=== PATIENT | male | born 1930 | race Caucasian/White ===

== ENCOUNTER → 2016-08-23 | Outpatient (CLI) | payer OTHER | LOC: BHFA 14:45 | PROVIDERS: ATTEND Internal Medicine | DX: R06.00 Dyspnea, unspecified (principal) ==

== ENCOUNTER 2016-10-02 15:23 | Inpatient (IN) | payer OTHER ==
--- NOTE | 2016-10-02 15:49 | EDPHY ---
H & P Stated Complaint: fall off bed, c/o bilat rib pain. hit head, no loc. no neck pain Time Seen by Provider: 10/02/16 15:24 HPI/ROS: CHIEF COMPLAINT: Chest wall pain and abdominal pain following mechanical fall HISTORY OF PRESENT ILLNESS: The patient presents to the emergency department with complaints of bilateral anterior chest wall pain and mild anterior abdominal pain following a mechanical fall. The patient reportedly tripped while in his room. He did not strike his head or lose consciousness. He has no complaints of headache or neck pain. The patient does have a history of COPD and has chronic dyspnea from this condition. He is on chronic oxygen. The patient also complains of generalized anterior abdominal pain. He denies back, pelvic or lower extremity pain. The patient reports his symptoms are worsened with with inspiration and palpation. REVIEW OF SYSTEMS: A comprehensive 10 point review of systems is otherwise negative aside from elements mentioned in the history of present illness. Source: Patient, Family Exam Limitations: No limitations - Personal History Current Tetanus/Diphtheria Vaccine: Yes Current Tetanus Diphtheria and Acellular Pertussis (TDAP): Yes Tetanus Vaccine Date: unsure - Medical/Surgical History Hx Asthma: No Hx Chronic Respiratory Disease: Yes Hx Diabetes: Yes Hx Cardiac Disease: Yes Hx Renal Disease: No Hx Cirrhosis: No Hx Alcoholism: No Hx HIV/AIDS: No Hx Splenectomy or Spleen Trauma: No Other PMH: htn, 6 stents, pacemaker (atrial) 2003, pm, chf, hf, 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 type 2 diabetic,[place] - Social History Smoking Status: Former smoker - Physical Exam Exam: General Appearance: Elderly male, obese, mild discomfort from pain Head: Atraumatic Eyes: Pupils equal, round, reactive ENT, Mouth: No hemotympanum, no oral trauma, nasal cannula oxygen prongs in place Neck: Nontender, trachea midline Respiratory: Diffuse anterior chest wall tenderness, no subcutaneous emphysema , no crepitus Cardiovascular: Regular rate and rhythm Abdomen: Diffuse mild anterior abdominal tenderness, pelvis stable Skin: No lacerations, No abrasion Back: No midline T/L/S pain Extremities: Nontender, full range of motion Neurological: A&Ox3, normal motor function, normal sensory exam Constitutional: Initial Vital Signs Temperature (C) 36.7 C 10/02/16 15:32 Heart Rate 70 10/02/16 15:32 Respiratory Rate 18 03/18/17 15:32 Blood Pressure 159/77 H 10/02/16 15:32 O2 Sat (%) 100 10/02/16 15:32 O2 Delivery Mode Nasal Cannula O2 (L/minute) 4 Allergies/Adverse Reactions: No Known Allergies Allergy (Verified 06/04/16 15:01) Home Medications: Medication Instructions Recorded Amlodipine Besylate 5 mg PO DAILY 05/06/13 ESOMEPRAZOLE MAG TRIHYDRATE 40 mg PO DAILY 05/06/13 [NEXIUM] Insulin Aspart [Novolog] 15 unit SQ 0730 05/06/13 Insulin Glargine,Hum.rec.anlog 25 unit SQ DAILY 05/06/13 [Lantus] Tamsulosin HCl [Flomax 0.4 MG (*)] 0.4 mg PO HS 05/06/13 Clopidogrel Bisulfate [Plavix (*)] 75 mg PO DAILY 12/29/13 Donepezil HCl [Aricept] 10 mg PO HS 12/29/13 Herbals/Supplements -Info Only 1 ea PO DAILY 12/29/13 Insulin Glargine [Lantus 100 6 - 15 units SC HS 12/29/13 UNITS/ML (*)] Metoprolol Succinate 50 mg PO DAILY 12/29/13 Nitroglycerin [Nitroglycerin Patch] 1 each TD PRN PRN 12/29/13 Aspirin [Aspirin 325 mg (*)] 325 mg PO DAILY 11/19/15 Losartan Potassium [Cozaar 50 mg 75 mg PO DAILY 11/19/15 (*)] Meclizine HCl [Meclizine HCl 25 mg 25 mg PO Q4 PRN #30 tab 11/19/15 (RX,OTC)] Mirabegron [Myrbetriq] 25 mg PO DAILY 11/19/15 Mirabegron [Myrbetriq] 50 mg PO HS 11/19/15 Medical Decision Making - Diagnostics EKG Interpretation: EKG: Complete interpretation has been separately recorded in the [facility] archive. Summary impression: A-V paced rhythm. Imaging: Chest x-ray AP: Images reviewed by myself and discussed with radiologist Dr. Jesse Mireles, pacemaker present, no pneumothorax, no obvious rib fracture or hemothorax. CT chest without contrast: Nondisplaced rib fracture, no sternal fracture, new spiculated lung lesion. CT A/P without contrast: Negative for acute injury, stable lesions in liver, stable changes in spine. ED Course/Re-evaluation: The patient presents to the ED with complaints of anterior chest pain after mechanical fall. The patient was noted to be hemodynamically stable. He also complained of mild abdominal pain and tenderness. The patient's initial chest x- ray demonstrated no evidence of obvious injury. He was taken for noncontrast CT scan of the chest abdomen pelvis given his ongoing pain and tenderness. We attempted to ambulate the patient several times however he is having quite a bit of discomfort in his chest with any movement. He is a fall risk and cannot safely be discharged home. He will require admission to the hospital. The patient has suggestions of possible nondisplaced rib fractures on his chest CT scan. There is no evidence of a sternal fracture. CT scan of the abdomen pelvis demonstrates no evidence of an intra-abdominal injury. There is stable disease noted in the liver and spine. CT scan of the chest does demonstrate a new spiculated nodule of uncertain significance. Workup with this will be deferred to the hospitalist and his regular oncologist. Consultation is made with Dr. Marin Espino who will admit the patient. The patient will be seen in consultation by Dr. Daya Rollins given his rib injuries. Differential Diagnosis: Differential diagnosis considered includes rib fracture, pneumothorax, hemothorax, sternal fracture, intra-abdominal injury, retroperitoneal injury - Data Points Laboratory Results: Laboratory Results 10/02/16 16:00 10/02/16 16:00 10/02/16 10/02/16 10/02/16 16:00 16:00 15:59 WBC 10.77 10^3/uL H 10^3/uL (3.80-9.50) RBC 3.82 10^6/uL L 10^6/uL (4.40-6.38) Hgb 12.3 g/dL L g/dL (13.7-17.5) POC Hgb 12.6 gm/dL L gm/dL (14.5-17.3) Hct 34.3 % L % (40.0-51.0) POC Hct 37 % L % (42.8-50.6) MCV 89.8 fL fL (81.5-99.8) MCH 32.2 pg pg (27.9-34.1) MCHC 35.9 g/dL g/dL (32.4-36.7) RDW 12.8 % % (11.5-15.2) Plt Count 239 10^3/uL 10^3/uL (150-400) MPV 9.5 fL fL (8.7-11.7) Neut % (Auto) 77.3 % H % (39.3-74.2) Lymph % (Auto) 10.5 % L % (15.0-45.0) [place] % (Auto) 8.3 % % (4.5-13.0) Eos % (Auto) 2.0 % % (0.6-7.6) Baso % (Auto) 0.6 % % (0.3-1.7) Nucleat RBC Rel Count 0.0 % % (0.0-0.2) Absolute Neuts (auto) 8.33 10^3/uL H 10^3/uL (1.70-6.50) Absolute Lymphs (auto) 1.13 10^3/uL 10^3/uL (1.00-3.00) Absolute Monos (auto) 0.89 10^3/uL H 10^3/uL (0.30-0.80) Absolute Eos (auto) 0.22 10^3/uL 10^3/uL (0.03-0.40) Absolute Basos (auto) 0.06 10^3/uL 10^3/uL (0.02-0.10) Absolute Nucleated RBC 0.00 10^3/uL 10^3/uL (0-0.01) Immature Gran % 1.3 % H % (0.0-1.1) Immature Gran # 0.14 10^3/uL H 10^3/uL (0.00-0.10) POC Sodium 140 mEq/L mEq/L (134-144) Sodium 135 mEq/L mEq/L (134-144) POC Potassium 4.7 mEq/L mEq/L (3.3-5.0) Potassium 4.9 mEq/L mEq/L (3.5-5.2) POC Chloride 103 mEq/L mEq/L (96-108) Chloride 104 mEq/L mEq/L (97-110) Carbon Dioxide 21 mEq/l L mEq/l (22-31) Anion Gap 10 mEq/L mEq/L (8-16) POC BUN 30 mg/dL H mg/dL (7-23) BUN 31 mg/dL H mg/dL (7-23) Creatinine 1.6 mg/dL H mg/dL (0.7-1.3) POC Creatinine 1.7 mg/dL H mg/dL (0.8-1.5) Estimated GFR 41 Glucose 190 mg/dL H mg/dL (70-100) POC Glucose 191 mg/dL H mg/dL (70-100) Calcium 9.4 mg/dL mg/dL (8.5-10.4) Point of Care Test Results: 10/02/16 15:59 POC Sodium 140 POC Potassium 4.7 POC Chloride 103 POC BUN 30 H POC Creatinine 1.7 H POC Glucose 191 H Departure - Departure Disposition: [facility] Inpatient Acute Clinical Impression: Chest wall pain, Abdominal pain Condition: Fair
--- NOTE | 2016-10-02 15:55 | CPEKG ---
Heart Rate: 71 RR Interval: 845 P-R Interval: 163 QRSD Interval: 190 QT Interval: 500 QTC Interval: 544 P [place]: -22 QRS [place]: -65 T Wave [place]: 116 EKG Severity - ABNORMAL ECG - EKG Impression: ATRIAL-VENTRICULAR DUAL-PACED RHYTHM Electronically Signed By: Ace Benson 03-Oct-2016 16:30:44
[2016-10-02 16:12] LABS: % IMMATURE GRANULYOCYTES 1.3 % (0.0-1.1); ABSOLUTE IMMATURE GRANULOCYTES 0.14 10^3/uL (0.00-0.10); ADD DIFF? NO; ADD MORPH? NO; ADD SCAN? NO; ATYPICAL LYMPHOCYTE FLAG 0 (0-99); FRAGMENT RBC FLAG 0 (0-99); HEMATOCRIT 34.3 % (40.0-51.0); HEMOGLOBIN 12.3 g/dL (13.7-17.5); LEFT SHIFT FLG 10 (0-99); LIPEMIA HEMOLYSIS FLAG 90 (0-99); MEAN CELL HEMOGLOBIN 32.2 pg (27.9-34.1); MEAN CELL HEMOGLOBIN CONCENTR. 35.9 g/dL (32.4-36.7); MEAN CELL VOLUME 89.8 fL (81.5-99.8); MEAN PLATELET VOLUME 9.5 fL (8.7-11.7); PLATELET CLUMPS FLAG 0 (0-99); PLATELET COUNT 239 10^3/uL (150-400); RED BLOOD CELL COUNT 3.82 10^6/uL (4.40-6.38); RED CELL DISTRIBUTION WIDTH 12.8 % (11.5-15.2)
[2016-10-02 16:24] LABS: ANION GAP 10 mEq/L (8-16); CALCIUM 9.4 mg/dL (8.5-10.4); CARBON DIOXIDE 21 mEq/l (22-31); CHLORIDE 104 mEq/L (97-110); CREATININE 1.6 mg/dL (0.7-1.3); GLOMERULAR FILTRATION RATE 41; GLUCOSE 190 mg/dL (70-100); POTASSIUM 4.9 mEq/L (3.5-5.2); SODIUM 135 mEq/L (134-144)
[2016-10-02] MEDS ORDERED: ONDANSETRON DISINTEGRATING 4 MG TAB PO PRN (19:29)
[2016-10-02] MEDS ORDERED: NITROGLYCERIN 0.4 MG BTL SL PRN (19:31)
[2016-10-02] MEDS ORDERED: D50W 25 GM/50 ML SYR IVP PRN (19:47)
--- NOTE | 2016-10-02 20:10 | GCON ---
[f rep st] CONSULTATION DATE OF CONSULTATION: 10/02/2016 REQUESTING PHYSICIAN: Jeremy Benson MD CHIEF COMPLAINT: Fall off bed with chest pain. HISTORY OF PRESENT ILLNESS: The patient is an 86-year-old man who presented to the emergency department due to anterior wall pain due to falling off his bed. He tripped in his room. He denies losing consciousness. Prior to me meeting him, he had a CT scan performed of his chest and abdomen. It did show questionable rib fractures as well as a spiculated mass in the right lower lobe. He is also complaining of slight neck pain. He is on oxygen chronically. PAST MEDICAL HISTORY: CHF, lymphoma, type 2 diabetes, COPD, pacemaker, 6 stents were placed, hearing impairment. SOCIAL HISTORY: He is a former smoker. FAMILY HISTORY: His parents are . REVIEW OF SYSTEMS: He is complaining of anterior wall chest pain. He says it radiates to his heart and he is complaining of neck soreness. Otherwise, he is hard hearing and a 10-point review of systems is negative. MEDICATIONS: In process of reconcilliation PHYSICAL EXAM: GENERAL: Elderly man lying in bed. His son is at bedside. He is in mild discomfort. He is pleasant, cooperative. HEENT: Normocephalic. Pupils equal and round. No scleral icterus. He does have gross hearing deficits. LUNGS: Clear to auscultation bilaterally. He is tender to palpation over the anterior chest wall. CARDIAC: Regular rate. ABDOMEN: His bowel sounds are present. He is soft. He is nontender. NECK: He is not tender along the cervical spine, but he is tender with range of motion. SKIN: No obvious abrasions or lacerations. RESULTS REVIEWED: I reviewed the results of his CT of his chest, abdomen, and pelvis. There is questionable rib fractures bilaterally and he has a spiculated mass in the anterior right lower lobe. IMPRESSION AND PLAN: The patient is an 86-year-old status post fall. 1. In terms of the spiculated mass in his lung, if his family would want to pursue wedge biopsy, I am happy to do this. I am unclear at this point if he would tolerate single lung ventilation. He would certainly need PFTs prior to surgery. 2. In terms of his rib fractures, supportive care, incentive spirometry. 3. I have also asked them to order a CT scan of his neck, as he was complaining of neck pain when I was in the ER. Please call me with any questions or concerns /[id number]/MODL MTDD
--- NOTE | 2016-10-02 20:20 | GHP ---
[f rep st] HISTORY AND PHYSICAL DATE OF ADMISSION: 10/02/2016 CHIEF COMPLAINT: Fall. HISTORY OF PRESENT ILLNESS: This is an 86-year-old male with multiple medical problems who presents after a fall. He was trying to kill a spider that was on the ceiling when he lost his balance and fell, landing on his right side. He did not lose consciousness. He did mildly hit his head. He im mediately had pain over both ribs. He thus presents to the emergency department for further evaluat ion. PAST MEDICAL/PAST SURGICAL HISTORY: 1. Diabetes mellitus. 2. Sick sinus syndrome. 3. Coronary artery disease. 4. MALT. 5. BPH. 6. Hyperlipidemia. 7. Hypertension. 8. GERD. 9. Obstructive sleep apnea. MEDICATIONS: Please see medication reconciliation. ALLERGIES: No known drug allergies. FAMILY HISTORY: His father had a stroke. SOCIAL HISTORY: He does not drink or smoke. REVIEW OF SYSTEMS: 10-point review of systems is conducted and is negative except for HPI. PHYSICAL EXAM: VITAL SIGNS: Blood pressure 166/87, heart rate 70, respiration rate 16, saturating 100% on 4 L. Temperature is 36.7. GENERAL: The patient is a very pleasant man who is lying in bed , appears somewhat uncomfortable. HEENT: A mild lump on the back of his head. He is wearing a C-co llar. CARDIOVASCULAR: Regular rate and rhythm. CHEST: Exquisitely tender to palpation bilateral on the lateral aspect of approximately his 8th or 9th rib. PULMONARY: Clear to auscultation bilaterally. He has breath sounds in all 4 quadrants. ABDOMEN: Soft, nontender, nondistended. SKIN: No rash. : No [place]. NEUROLOGIC: Alert and oriented x3. He is moving all extremities. P SYCHIATRIC: Normal mood and affect. LABORATORY DATA: White count is 10. Hemoglobin is 12. Creatinine is 1.6. Glucose is 190. DATA: 1. I discussed this with Dr. Benson. 2. I reviewed his chest CT scan. It shows bilateral rib fractures as well as a spiculated mass. 3. ECG, which I personally viewed and interpreted, shows a paced rhythm. 4. Chest x-ray, which I personally reviewed and interpreted, shows cardiomegaly. He has a pacemaker in place. There is nothing acute. IMPRESSION AND PLAN: This is an 86-year-old man with a fall with subsequent rib fractures. 1. Rib fractures: Dr. Rollins has been consulted. Appreciate her assistance. She has recommended a neck brace with a CT scan. This is pending. If negative, will likely be able to clear his neck an d remove the C-collar. Will provide him an incentive spirometer for his rib fractures. Will provid e him a Lidoderm patch as well as scheduled Tylenol and some low-dose narcotics. Would avoid NSAIDs at this point given his renal issues. 2. Fall: Will have him work with Physical Therapy. 3. Spiculated mass in his lungs: He is followed by Dr. Sow. He can continue outpatient followup for this. 4. Diabetes mellitus: Will continue his home insulin and check his blood sugars. 5. Elevated creatinine: Recent creatinines had been in this range. I am unclear if this represent s an acute or chronic kidney disease. Will recheck it tomorrow. Caution with nephrotoxins. 6. Coronary artery disease: Will continue his cardiac medications including aspirin, Plavix, metop rolol, statin. 7. Benign prostatic hypertrophy: Flomax. 8. Sick sinus syndrome, status post pacemaker: Currently AV paced. Continue metoprolol. 9. Code status is full. 10. Venous thromboembolism risk is moderate to high. Will give him Lovenox. /[id number]/MODL
[2016-10-02] MEDS ORDERED: NON-FORMULARY NEW DRUG (Mirabegron [Myrbetriq] 50 MG) PO SCH (21:00)
[2016-10-02] MEDS: METOPROLOL SUCCINATE XR 50 MG TAB PO SCH (21:47)
[2016-10-02] MEDS: TAMSULOSIN HCL 0.4 MG CAP PO SCH (21:48)
[2016-10-02] MEDS: DONEPEZIL HCL 5 MG TAB PO SCH (21:48)
[2016-10-02] MEDS: oxyCODONE IR 5 MG TAB PO PRN (21:49)
[2016-10-02] MEDS: INSULIN GLARGINE 100 UNITS/ML SYRINGE SC SCH (21:49)
[2016-10-02] MEDS: LIDOCAINE 5% 1 EA PATCH TD SCH (21:55)
[2016-10-02] MEDS: (Mirabegron [Myrbetriq] 50 MG) PO SCH (22:30)
[2016-10-03 05:13] LABS: % IMMATURE GRANULYOCYTES 0.3 % (0.0-1.1); ABSOLUTE IMMATURE GRANULOCYTES 0.03 10^3/uL (0.00-0.10); ADD DIFF? NO; ADD MORPH? NO; ADD SCAN? NO; ATYPICAL LYMPHOCYTE FLAG 0 (0-99); FRAGMENT RBC FLAG 0 (0-99); HEMATOCRIT 32.9 % (40.0-51.0); HEMOGLOBIN 11.6 g/dL (13.7-17.5); LEFT SHIFT FLG 0 (0-99); LIPEMIA HEMOLYSIS FLAG 90 (0-99); MEAN CELL HEMOGLOBIN 31.7 pg (27.9-34.1); MEAN CELL HEMOGLOBIN CONCENTR. 35.3 g/dL (32.4-36.7); MEAN CELL VOLUME 89.9 fL (81.5-99.8); MEAN PLATELET VOLUME 9.4 fL (8.7-11.7); PLATELET CLUMPS FLAG 0 (0-99); PLATELET COUNT 205 10^3/uL (150-400); RED BLOOD CELL COUNT 3.66 10^6/uL (4.40-6.38); RED CELL DISTRIBUTION WIDTH 12.7 % (11.5-15.2)
[2016-10-03 05:29] LABS: ANION GAP 10 mEq/L (8-16); CALCIUM 9.2 mg/dL (8.5-10.4); CARBON DIOXIDE 24 mEq/l (22-31); CHLORIDE 108 mEq/L (97-110); CREATININE 1.4 mg/dL (0.7-1.3); GLOMERULAR FILTRATION RATE 48; GLUCOSE 111 mg/dL (70-100); POTASSIUM 4.3 mEq/L (3.5-5.2); SODIUM 142 mEq/L (134-144)
[2016-10-03] MEDS: oxyCODONE IR 5 MG TAB PO PRN (05:57)
[2016-10-03] MEDS ORDERED: INSULIN LISPRO 100 UNIT/ML SC SCH ×2 (07:30→18:00)
[2016-10-03] MEDS ORDERED: INSULIN ASPART 15 UNIT SQ SCH (07:30)
[2016-10-03] MEDS ORDERED: NON-FORMULARY NEW DRUG (Vit A/Vit C/Vit E/Zinc/Copper [Preservision Areds Tablet] 1 EACH) PO SCH (09:00)
[2016-10-03] MEDS: PRESERVISION AREDS2 FORMULA EYE VIT 1 EACH PO SCH (09:05)
[2016-10-03] MEDS: ESCITALOPRAM OXALATE 10 MG TAB PO SCH (09:05)
[2016-10-03] MEDS: LORazepam 0.5 MG TAB PO SCH (09:06)
[2016-10-03] MEDS: CLOPIDOGREL BISULFATE 75 MG TAB PO SCH (09:06)
[2016-10-03] MEDS: ASPIRIN 325 MG TAB PO SCH (09:06)
[2016-10-03] MEDS: CHOLECALCIFEROL VIT D3 2,000 UNITS TAB/CAP PO SCH (09:06)
[2016-10-03] MEDS: PANTOPRAZOLE SODIUM 40 MG TAB PO SCH (09:07)
[2016-10-03] MEDS: METOPROLOL SUCCINATE XR 50 MG TAB PO SCH ×3 (09:18→21:50)
[2016-10-03] MEDS: LOSARTAN POTASSIUM 50 MG TAB PO SCH (09:19)
[2016-10-03] MEDS: INSULIN GLARGINE 100 UNITS/ML SYRINGE SC SCH ×2 (09:19→21:43)
[2016-10-03] MEDS: amLODIPine BESYLATE 5 MG TAB PO SCH (09:19)
[2016-10-03] MEDS: PATCH REMOVAL 1 EA PATCH TD SCH (09:21)
[2016-10-03] MEDS: ACETAMINOPHEN 500 MG TAB PO PRN ×2 (09:25→21:52)
[2016-10-03] MEDS: ROSUVASTATIN CALCIUM 10 MG TAB PO SCH (09:52)
[2016-10-03] MEDS: ENOXAPARIN 30 MG/0.3 ML SYR SC SCH (09:52)
--- NOTE | 2016-10-03 10:25 | HOSPPROG ---
Hospitalist Progress Note Assessment/Plan: Patient is an 86-year-old male with multiple medical problems who presents did to the emergency room after falling. He was trying to kill spider that was on the ceiling and lost his balance and fell. He landed on his right side. He had pain over both his ribs. Today is my 1st encounter with the patient. Chart reviewed. * Rib fractures - able to ambulate well in the room - will give supportive care - cervical CT spine shows nothing acute * gait instability with a fall - physical therapy and occupational therapy to work with him * spiculated mass in his lungs - will need a biopsy / can follow up with Dr. Rollins after he improves from his rib fractures -patient and son aware of this finding * diabetes - glucoses have been labile/ glucose very low this morning -on lantus bid/will change to lower dose qHS and stop his sliding scale and place on hospital one -once his glucoses improve/ can resume his home dosing * hypotension - place parameters as to when to hold his medications he is on multiple blood pressure medications * renal insufficiency - creatinine is 1.4 * coronary artery disease - on aspirin, beta-noe, statin, and Plavix * BPH - Flomax * sick sinus syndrome status post pacemaker * DVT prophylaxis:LMWH *Plan: will need another midnight stay to regulate glucoses and bp Subjective: Ras has pain with deep inspiration on both sides where his ribs are. Objective: Vital Signs Temp Pulse Resp BP Pulse Ox 36.5 C 80 16 112/66 95 10/03/16 07:53 10/03/16 07:53 10/03/16 07:53 10/03/16 07:53 10/03/16 07:53 Laboratory Results 10/03/16 04:49 10/03/16 04:49 10/02/16 10/03/16 10/04/16 05:59 05:59 05:59 Intake Total 200 Balance 200 - Physical Exam Constitutional: appears nourished, chronically ill appearing, obese Eyes: PERRL Ears, Nose, Mouth, Throat: hard of hearing (per son has more difficutly with interpreting words than [place]/patient has a microphone for hearing) Cardiovascular: regular rate and rhythym, bradycardia Respiratory: no respiratory distress, reduced air movement (bibasilar) Gastrointestinal: normoactive bowel sounds Skin: warm Musculoskeletal: no muscle tenderness Neurologic: AAOx3 Psychiatric: interacting appropriately, not anxious, not encephalopathic ICD10 Worksheet Patient Problems: Problems Problem Status Onset Abdominal pain Acute Chest wall pain Acute CAD - Coronary arteriosclerosis Acute Syncope and collapse Acute Vertigo Acute
[2016-10-03] MEDS: INSULIN LISPRO 100 UNIT/ML SC SCH ×2 (12:36→18:15)
[2016-10-03] MEDS ORDERED: NON-FORMULARY NEW DRUG (Insulin Aspart [Novolog Flexpen] 0 UNIT) SQ SCH (18:00)
[2016-10-03] MEDS: LIDOCAINE 5% 1 EA PATCH TD SCH (21:43)
[2016-10-03] MEDS: DONEPEZIL HCL 5 MG TAB PO SCH (21:49)
[2016-10-03] MEDS: TAMSULOSIN HCL 0.4 MG CAP PO SCH (21:50)
[2016-10-03] MEDS: (Mirabegron [Myrbetriq] 50 MG) PO SCH (21:58)
[2016-10-04] MEDS: METOPROLOL SUCCINATE XR 50 MG TAB PO SCH ×2 (04:27→22:02)
[2016-10-04] MEDS: LOSARTAN POTASSIUM 50 MG TAB PO SCH (08:35)
[2016-10-04] MEDS: CLOPIDOGREL BISULFATE 75 MG TAB PO SCH (08:35)
[2016-10-04] MEDS: ESCITALOPRAM OXALATE 10 MG TAB PO SCH (08:35)
[2016-10-04] MEDS: CHOLECALCIFEROL VIT D3 2,000 UNITS TAB/CAP PO SCH (08:36)
[2016-10-04] MEDS: PANTOPRAZOLE SODIUM 40 MG TAB PO SCH (08:36)
[2016-10-04] MEDS: ROSUVASTATIN CALCIUM 10 MG TAB PO SCH (08:36)
[2016-10-04] MEDS: LORazepam 0.5 MG TAB PO SCH (08:36)
[2016-10-04] MEDS: ACETAMINOPHEN 500 MG TAB PO PRN ×2 (08:37→22:09)
[2016-10-04] MEDS: ASPIRIN 325 MG TAB PO SCH (08:37)
[2016-10-04] MEDS: ENOXAPARIN 30 MG/0.3 ML SYR SC SCH (08:37)
[2016-10-04] MEDS: amLODIPine BESYLATE 5 MG TAB PO SCH (08:37)
[2016-10-04] MEDS: oxyCODONE IR 5 MG TAB PO PRN ×2 (08:46→22:09)
[2016-10-04] MEDS: PRESERVISION AREDS2 FORMULA EYE VIT 1 EACH PO SCH (09:00)
[2016-10-04] MEDS: INSULIN LISPRO 100 UNIT/ML SC SCH ×3 (10:04→18:12)
[2016-10-04] MEDS ORDERED: LACTULOSE 20 GM/30 ML UDCUP PO PRN (10:59)
[2016-10-04] MEDS ORDERED: BISACODYL 10 MG SUPP PR PRN (10:59)
[2016-10-04] MEDS: POLYETHYLENE GLYCOL 3350 17 GM PKT PO SCH (12:17)
[2016-10-04] MEDS: PATCH REMOVAL 1 EA PATCH TD SCH (12:17)
--- NOTE | 2016-10-04 15:26 | HOSPPROG ---
Hospitalist Progress Note Assessment/Plan: Patient is an 86-year-old male with multiple medical problems who presents did to the emergency room after falling. He was trying to kill spider that was on the ceiling and lost his balance and fell. He landed on his right side. He had pain over both his ribs. Patient's [place] language is [place]ic, but understands [place]ican/ is very [place] and does best if spoken to through his microphone. * Rib fractures - able to ambulate well in the room - will give supportive care - cervical CT spine shows nothing acute * gait instability with a fall - physical therapy and occupational therapy to work with him * Mild stable T8,T9, T11 and T12 compression fx -unclear if these are new -patient has rib pain, back pain with walking, not sure if this is chronic -appreciate neurosurgery input * spiculated mass in his lungs - will need a biopsy / can follow up with Dr. Rollins after he improves from his rib fractures -patient and son aware of this finding * diabetes - glucoses have been labile/ glucose very low this morning -on lantus bid/will change to lower dose qHS and stop his sliding scale and place on hospital one -once his glucoses improve/ can resume his home dosing * hypotension - he is having a significant drop in his blood pressure/ will stop Losartan and Norvasc, continue Metoprolol. - if his blood pressure improves, can resume Losartan and Norvasc, but maybe lower doses - suspect this was one of the etiologies of why he fell * renal insufficiency - creatinine is 1.4 * coronary artery disease - on aspirin, beta-noe, statin, and Plavix * BPH - Flomax * sick sinus syndrome status post pacemaker * DVT prophylaxis:LMWH *Plan: continue current treatment/ appreciate Neurosurgery's input in regards to the T compression fx/ ?old vs new? Subjective: Ras said both sides hurt. Objective: Vital Signs Temp Pulse Resp BP Pulse Ox 36.9 C 67 15 93/52 L 94 10/04/16 11:55 10/04/16 11:55 10/04/16 11:55 10/04/16 12:04 10/04/16 11:55 Laboratory Results 10/03/16 04:49 10/03/16 04:49 10/03/16 10/04/16 10/05/16 05:59 05:59 05:59 Intake Total 200 1400 Balance 200 1400 - Physical Exam Constitutional: chronically ill appearing, obese, uncomfortable Eyes: PERRL Ears, Nose, Mouth, Throat: hard of hearing Cardiovascular: regular rate and rhythym Respiratory: no respiratory distress, reduced air movement (mid lobes down/poor respiratory effort) Gastrointestinal: normoactive bowel sounds, other (large and round) Skin: warm, normal color Musculoskeletal: generalized weakness Neurologic: AAOx3 Psychiatric: interacting appropriately, not anxious ICD10 Worksheet Patient Problems: Problems Problem Status Onset Abdominal pain Acute Chest wall pain Acute CAD - Coronary arteriosclerosis Acute Syncope and collapse Acute Vertigo Acute
--- NOTE | 2016-10-04 19:47 | NEUSURGPN ---
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 Multiple age- indeterminant compression fractures at T8.T9, T11, and T12 also seen on CT. -Patient is complaining of back pain but has no focal tenderness on physical exam in his Thoracic or lumbar spine -Consult somewhat difficult due to hearing loss and language barrier. -Unable to get MRI due to pacemaker -Will obtain bone scan of T and L spine to assess acuity of fx and will most likely not need any intervention with a brace -Will follow bone scan results and most likely sign off if not acute -Per case technician looking into plans for patient upon discharge -Encourage work with PT/OT -Patient seen with Dr. Shoemaker -Call with any changes in exam or any questions regarding this consult Katelin Shane PA-C [facility] [phone] - Physician Discussed Patient with Dr.: Shoemaker Patient Seen by Dr.: Shoemaker Neurosurgery Physical Exam - Vitals, I&O, Labs I and O 10/03/16 10/04/16 10/05/16 05:59 05:59 05:59 Intake Total 200 1400 Balance 200 1400 Weight 92.986 kg Intake: Oral (ml) 200 1400 Other: Intake Quantity Yes Sufficient Number of Voids 1 Toilet 1 3 Vital Signs Temp Pulse Resp BP Pulse Ox 36.3 C 80 19 108/64 90 L 10/04/16 19:26 10/04/16 19:26 10/04/16 19:26 10/04/16 19:26 10/04/16 19:26 Laboratory Results 10/03/16 04:49 10/03/16 04:49 ICD10 Worksheet Patient Problems: Problems Problem Status Onset Abdominal pain Acute Chest wall pain Acute CAD - Coronary arteriosclerosis Acute Syncope and collapse Acute Vertigo Acute
--- NOTE | 2016-10-04 21:02 | GCON ---
[f rep st] CONSULTATION NEUROSURGERY CONSULTATION CHIEF COMPLAINT: Fall, back pain. HISTORY OF PRESENT ILLNESS: This is an 86-year-old male with multiple medical problems who presented after a fall 2 days ago. Per a review of his medical records, he was trying to kill a spider that was on the ceiling, when he lost his balance and fell, landing on his right side. He did not lose consciousness. He did mildly his head. The patient did have pain in his ribs. He was presented to the Emergency Department for further evaluation of this. Neurosurgery Services were consulted today after scans revealed multiple compression fractures in his thoracic spine at T8, T9, T11 and T12. The patient currently does not complain of a lot of back pain, but does so intermittently. He states that he has back pain, but when pressing on his back today, he does not have much tenderness to palpation. The patient denies any numbness, tingling, or pain in his legs. Patient denies any loss of bowel or bladder control. Communication with the patient is as somewhat limited due to his hardness of hearing, as well somewhat of a language barrier. Per the case maker who was talking to his son earlier, the son did state that the patient was more complaining of a new onset of a tremor and was not complaining of a lot of back pain. Per the case maker, they are also working on placement options for this patient. PAST MEDICAL HISTORY: Consists of diabetes, sick sinus syndrome, coronary artery disease, BPH, hyperlipidemia, hypertension, GERD, obstructive sleep apnea. MEDICATIONS: Please see the medication reconciliation. ALLERGIES: The patient has no known drug allergies. FAMILY HISTORY: Per review of his medical records, his past family history is significant for a stroke in his father. SOCIAL HISTORY: Patient denies any tobacco use or any alcohol use. REVIEW OF SYSTEMS: All pertinent positive and negative review of systems are as stated in the HPI. OBJECTIVE: VITAL SIGNS: Blood pressure 108/64, heart rate 80, respiratory rate 19, O2 saturation is 90% on room air, temperature 36.3 degrees Celsius. CONSTITUTIONAL: The patient is an overweight, elderly man in no acute distress. He is sitting up initiate the chair. HEENT: Head is normocephalic, atraumatic. Eyes: Pupils are equal and reactive to light and accommodation. Extraocular muscles are intact. Ears: Patient does have difficulty hearing. RESPIRATORY: The patient has a normal work of breathing. : The patient is negative for guarding. NEURO: Cranial nerves II through XII are grossly intact. Motor: Bilateral lower extremities are 5/5 and equal in strength, including quadriceps, hamstrings, dorsiflexion, plantarflexion, and EHL. Sensation is intact bilaterally over the normal distribution of the body. MUSCULOSKELETAL: Patient is nontender to palpation over the midthoracic and lumbar spine. He is also nontender the palpation over the paraspinal muscles near the thoracic and lumbar spine. Bilateral upper extremities are 5/5 and equal in strength, including biceps, triceps, deltoids, wrist extensors and flexors, interossei and community liaison officer. EXTREMITIES: There is no cyanosis noted. LABORATORY DATA: White blood cell count 8.67, red blood cell count 3.66, hemoglobin 11.6, hematocrit 32.9, platelets 205. Glucose 216. DIAGNOSTIC IMAGING: A cervical spine CT was performed without contrast that shows no acute cervical osseous abnormality. A chest CT was performed without contrast which on the sagittal reconstructed views demonstrates mild stable compression deformities associated with the superior endplates of T8, T9, T11 and T12. Bone spurs are seen throughout the mid to upper lumbar spine. There is no new lytic/blastic lesion. As such, degenerative changes are noted in the mid to lower lumbar spine. The abdominal aorta is normal in size with some atherosclerotic features. There is no new retroperitoneal and mesenteric adenopathy. ASSESSMENT: This is an 86-year-old male with multiple medical problems, who had a fall, resulting in subsequent rib fractures. On his imaging, there were multiple compression fractures seen in his thoracic spine which were age indeterminate at T8,T9, T11 and T12. We were consulted in order to assess the acuity of these fractures. At this time, the patient does state that he has some back pain even though on my exam today he is nontender over the thoracic and lumbar spine. He is neurologically intact without any signs of weakness. He has no loss of bowel or bladder control. In order to assess the acuity of these fractures, we would need to get an MRI; however, the patient does have a history of a pacemaker and is unable to get this. We will therefore obtain a bone scan of the thoracic and lumbar spine in order to make sure that these fractures are not acute. If the fractures are not acute, which is most likely the case, no intervention is needed. If the fractures are acute, we would move to put this patient in a brace. He should continue to work with Physical Therapy, Occupational Therapy. The Medicine Service will continue to attend his other multiple medical problems. We appreciate this consult and we will continue to follow the results of his bone scan. Please contact Neurosurgery with any questions or concerns. Again this patient was seen by the Neurosurgical team at approximately 3:30 p.m. /[id number]/MODL MTDD
[2016-10-04] MEDS: DONEPEZIL HCL 5 MG TAB PO SCH (21:58)
[2016-10-04] MEDS: INSULIN GLARGINE 100 UNITS/ML SYRINGE SC SCH (21:59)
[2016-10-04] MEDS: LIDOCAINE 5% 1 EA PATCH TD SCH (21:59)
[2016-10-04] MEDS: SENNOSIDES/DOCUSATE SODIUM TAB PO SCH (22:03)
[2016-10-04] MEDS: (Mirabegron [Myrbetriq] 50 MG) PO SCH (22:03)
[2016-10-04] MEDS: TAMSULOSIN HCL 0.4 MG CAP PO SCH (22:04)
[2016-10-05] MEDS: oxyCODONE IR 5 MG TAB PO PRN (03:33)
--- NOTE | 2016-10-05 07:42 | NEUSURGPN ---
Assessment/Plan: 86 yo male with multiple compression fractures on CT, no focal tenderness. - neuro stable - Bone scan pending to determine chronicity of fractures. If acute, will fit patient with brace to be worn when out of bed. If chronic, no treatment required - PT/OT - pain control Subjective: Resting in bed this morning. Pain controlled. Objective: Awake. Alert. Speech fluent Muscle strength full at 5/5 Sensation intact - Physician Discussed Patient with : [facility] Physical Exam - Vitals, I&O, Labs I and O 10/04/16 10/05/16 10/06/16 05:59 05:59 05:59 Intake Total 1400 300 Balance 1400 300 Intake: Oral (ml) 1400 300 Other: Intake Quantity Yes Sufficient Number of Voids Toilet 3 Vital Signs Temp Pulse Resp BP Pulse Ox 36.6 C 73 18 119/68 95 10/05/16 04:00 10/05/16 04:00 10/05/16 04:00 10/05/16 04:00 10/05/16 04:00 Laboratory Results 10/03/16 04:49 10/03/16 04:49 ICD10 Worksheet Patient Problems: Problems Problem Status Onset Abdominal pain Acute Chest wall pain Acute CAD - Coronary arteriosclerosis Acute Syncope and collapse Acute Vertigo Acute
[2016-10-05] MEDS: INSULIN LISPRO 100 UNIT/ML SC SCH ×3 (09:30→18:08)
[2016-10-05] MEDS: CHOLECALCIFEROL VIT D3 2,000 UNITS TAB/CAP PO SCH (09:47)
[2016-10-05] MEDS: PRESERVISION AREDS2 FORMULA EYE VIT 1 EACH PO SCH (09:48)
[2016-10-05] MEDS: ESCITALOPRAM OXALATE 10 MG TAB PO SCH (09:48)
[2016-10-05] MEDS: CLOPIDOGREL BISULFATE 75 MG TAB PO SCH (09:48)
[2016-10-05] MEDS: ROSUVASTATIN CALCIUM 10 MG TAB PO SCH (09:49)
[2016-10-05] MEDS: SENNOSIDES/DOCUSATE SODIUM TAB PO SCH ×2 (09:49→20:56)
[2016-10-05] MEDS: ASPIRIN 325 MG TAB PO SCH (09:49)
[2016-10-05] MEDS: PANTOPRAZOLE SODIUM 40 MG TAB PO SCH (09:49)
[2016-10-05] MEDS: METOPROLOL SUCCINATE XR 50 MG TAB PO SCH ×2 (09:49→20:54)
[2016-10-05] MEDS: LORazepam 0.5 MG TAB PO SCH (09:50)
[2016-10-05] MEDS: POLYETHYLENE GLYCOL 3350 17 GM PKT PO SCH (09:50)
[2016-10-05] MEDS: ENOXAPARIN 30 MG/0.3 ML SYR SC SCH (09:50)
[2016-10-05] MEDS: PATCH REMOVAL 1 EA PATCH TD SCH (13:21)
--- NOTE | 2016-10-05 15:19 | HOSPPROG ---
Hospitalist Progress Note Assessment/Plan: Patient is an 86-year-old male with multiple medical problems who presents to the emergency room after falling. He was trying to kill spider that was on the ceiling and lost his balance and fell. He landed on his right side. He had pain over both his ribs. Patient's pilot point language is Senegalese, but understands Bengali/ is very [place] and does best if spoken to through his microphone. This is my first encounter, chart reviewed. D/W CM and son. * Rib fractures - able to ambulate well in the room - will give supportive care - cervical CT spine shows nothing acute * gait instability with a fall - physical therapy and occupational therapy to work with him * Mild stable T8,T9, T11 and T12 compression fx -unclear if these are new -patient has rib pain, back pain with walking, not sure if this is chronic -appreciate neurosurgery input -bone scan pending * spiculated mass in his lungs - will need a biopsy / can follow up with Dr. Rollins after he improves from his rib fractures -patient and son aware of this finding * diabetes - glucoses have been labile/ glucose very low this morning -on lantus bid/will change to lower dose qHS and stop his sliding scale and place on hospital one -once his glucoses improve/ can resume his home dosing * hypotension - he is having a significant drop in his blood pressure/ will stop Losartan and Norvasc, continue Metoprolol. - if his blood pressure improves, can resume Losartan and Norvasc, but maybe lower doses - suspect this was one of the etiologies of why he fell * renal insufficiency - creatinine is 1.4 * coronary artery disease - on aspirin, beta-noe, statin, and Plavix * BPH - Flomax * sick sinus syndrome status post pacemaker * DVT prophylaxis:LMWH *Plan: continue current treatment/ appreciate Neurosurgery's input in regards to the T compression fx/ ?old vs new? Dc 1-2 days to [facility] or rehab Subjective: Up in the chair. Feels ok. Pain controlled. Wants to go home. Objective: Vital Signs Temp Pulse Resp BP Pulse Ox 36.9 C 66 15 111/60 95 10/05/16 12:22 10/05/16 12:22 10/05/16 12:22 10/05/16 12:22 10/05/16 12:22 Laboratory Results 10/03/16 04:49 10/03/16 04:49 10/04/16 10/05/16 10/06/16 05:59 05:59 05:59 Intake Total 1400 300 Balance 1400 300 - Physical Exam Constitutional: no apparent distress, not in pain, obese Eyes: PERRL, anicteric sclera, EOMI Ears, Nose, Mouth, Throat: moist mucous membranes, ears appear normal, hard of hearing Cardiovascular: No JVD, No tachycardia, No edema Respiratory: no respiratory distress, no rales or rhonchi, reduced air movement Gastrointestinal: No tenderness, No ascites, No guarding Skin: warm, normal color, No erythema Musculoskeletal: pain with ROM, muscular tenderness, generalized weakness Neurologic: AAOx3 Psychiatric: not anxious, not encephalopathic, thought process linear ICD10 Worksheet Patient Problems: Problems Problem Status Onset Syncope and collapse Acute CAD - Coronary arteriosclerosis Acute Vertigo Acute Chest wall pain Acute Abdominal pain Acute
[2016-10-05] MEDS: INSULIN GLARGINE 100 UNITS/ML SYRINGE SC SCH (20:51)
[2016-10-05] MEDS: DONEPEZIL HCL 5 MG TAB PO SCH (20:51)
[2016-10-05] MEDS: LIDOCAINE 5% 1 EA PATCH TD SCH (20:51)
[2016-10-05] MEDS: (Mirabegron [Myrbetriq] 50 MG) PO SCH (20:55)
[2016-10-05] MEDS: TAMSULOSIN HCL 0.4 MG CAP PO SCH (20:56)
[2016-10-06 07:33] VITALS: RESP 16
[2016-10-06] MEDS: PANTOPRAZOLE SODIUM 40 MG TAB PO SCH (08:15)
[2016-10-06] MEDS: CLOPIDOGREL BISULFATE 75 MG TAB PO SCH (08:15)
[2016-10-06] MEDS: ASPIRIN 325 MG TAB PO SCH (08:16)
[2016-10-06] MEDS: SENNOSIDES/DOCUSATE SODIUM TAB PO SCH (08:16)
[2016-10-06] MEDS: ESCITALOPRAM OXALATE 10 MG TAB PO SCH (08:16)
[2016-10-06] MEDS: METOPROLOL SUCCINATE XR 50 MG TAB PO SCH (08:17)
[2016-10-06] MEDS: LORazepam 0.5 MG TAB PO SCH (08:17)
[2016-10-06] MEDS: CHOLECALCIFEROL VIT D3 2,000 UNITS TAB/CAP PO SCH (08:17)
[2016-10-06] MEDS: PRESERVISION AREDS2 FORMULA EYE VIT 1 EACH PO SCH (08:17)
[2016-10-06] MEDS: ROSUVASTATIN CALCIUM 10 MG TAB PO SCH (08:18)
[2016-10-06] MEDS: ENOXAPARIN 30 MG/0.3 ML SYR SC SCH (08:19)
[2016-10-06] MEDS: POLYETHYLENE GLYCOL 3350 17 GM PKT PO SCH (08:19)
[2016-10-06] MEDS: INSULIN LISPRO 100 UNIT/ML SC SCH ×2 (08:19→13:38)
[2016-10-06] MEDS: PATCH REMOVAL 1 EA PATCH TD SCH (08:20)
[2016-10-06] MEDS: oxyCODONE IR 5 MG TAB PO PRN ×2 (08:22→13:43)
[2016-10-06] MEDS: ACETAMINOPHEN 500 MG TAB PO PRN (08:24)
[2016-10-06 11:05] VITALS: BP 116/66; PULSE 73; TEMP 98.5; O2SAT 95
--- NOTE | 2016-10-06 11:42 | PDIAF ---
- Diagnosis Diagnosis: rib fx Code Status: Full Code - Medication Management Discharge Medications: Medications to Continue on Transfer Insulin Aspart [Novolog] 15 unit SQ 0730 05/06/13 [Last Taken 11/18/15] Tamsulosin HCl [Flomax 0.4 MG (*)] 0.4 mg PO HS 05/06/13 [Last Taken 11/18/15] Clopidogrel Bisulfate [Plavix (*)] 75 mg PO DAILY 12/29/13 [Last Taken 11/18/15] Donepezil HCl [Aricept] 10 mg PO HS 12/29/13 [Last Taken 11/18/15] Herbals/Supplements -Info Only 1 ea PO DAILY 12/29/13 [Last Taken Unknown] Metoprolol Succinate 50 mg PO BID 12/29/13 [Last Taken 11/18/15] Aspirin [Aspirin 325 mg (*)] 325 mg PO DAILY 11/19/15 [Last Taken 11/18/15] Mirabegron [Myrbetriq] 50 mg PO HS 11/19/15 [Last Taken 11/18/15] Cholecalciferol (Vitamin D3) [Vitamin D3] 5,000 unit PO DAILY 10/02/16 [Last Taken Unknown] Escitalopram Oxalate [Lexapro 10 MG] 10 mg PO DAILY 10/02/16 [Last Taken Unknown ] Esomeprazole Magnesium [Nexium] 20 mg PO DAILY 10/02/16 [Last Taken Unknown] Insulin Aspart [Novolog Flexpen] 10 - 15 unit SQ DAILY@1800 10/02/16 [Last Taken Unknown] Insulin Glargine,Hum.rec.anlog [Basaglar Kwikpen U-100] 40 unit SQ BID 10/02/16 [Last Taken Unknown] LORazepam [Ativan (*)] 0.5 mg PO DAILY 10/02/16 [Last Taken Unknown] Multivitamins [Multivitamin (*)] 1 each PO DAILY 10/02/16 [Last Taken Unknown] Nitroglycerin [Nitrostat 0.4 mg (*)] 0.4 mg SL Q5M PRN 10/02/16 [Last Taken Unknown] Rosuvastatin Calcium [Crestor] 10 mg PO DAILY 10/02/16 [Last Taken Unknown] Vit A/Vit C/Vit E/Zinc/Copper [Preservision Areds Tablet] 1 each PO DAILY [Last Taken Unknown] Acetaminophen [Tylenol ES 500 mg (*)] 1,000 mg PO TID PRN #0 tab 10/06/16 [Last Taken Unknown] Lidocaine 5% [Lidoderm 5% Patch (*)] 1 ea TD DAILY@2100 #0 patch 10/06/16 [Last Taken Unknown] Patch Removal 1 ea TD DAILY #0 patch 10/06/16 [Last Taken Unknown] Polyethylene Glycol 3350 [Miralax 17 gm (*)] 17 gm PO DAILY #0 pkt 10/06/16 [ Last Taken Unknown] Sennosides/Docusate Sodium [Senokot-S] 1 - 2 tab PO BID #0 tab 10/06/16 [Last Taken Unknown] oxyCODONE IR [Oxycodone Ir (*)] 5 - 10 mg PO Q3HRS PRN #0 tab 10/06/16 [Last Taken Unknown] Discharge Medications: Refer to the Discharge Home Medication list for PRN reason. PICC Care - Routine: N/A - Orders Services needed: Registered Nurse, Physical Therapy, Occupational Therapy - Follow Up Care Current Providers and Referrals: Tru Bo MD [Primary Care Provider] - As per Instructions
--- NOTE | 2016-10-06 12:51 | GDS ---
[f rep st] DISCHARGE SUMMARY DISCHARGE DIAGNOSES: 1. Mechanical fall. 2. Rib fractures. 3. Gait instability. 4. Multiple thoracic compression fractures. 5. Spiculated mass. 6. Diabetes. 7. Hypotension. 8. Renal insufficiency. 9. Coronary artery disease. 10. BPH. 11. Sick sinus syndrome, status post pacemaker. STUDIES AND PROCEDURES DONE: 1. CT of the abdomen and pelvis. 2. CT of the chest. 3. Cervical spine CT. 4. Bone scan. CONSULTATIONS: Neurosurgery. PHYSICAL EXAMINATION: GENERAL: The patient is alert. VITAL SIGNS: Afebrile, 36.9. Pulse is 73, respiratory rate 16, blood pressure is 116/66, saturating 95% on 2 L. I have seen and evaluated the patient on the day of discharge. HOSPITAL COURSE: The patient is an 86-year-old male who presented to the emergency room after suffe ring a mechanical fall off a chair. He was evaluated and diagnosed with: 1. Multiple rib fractures. The patient is ambulating independently. His pain is well controlled. He did receive a consultation from trauma at the time of admission. There are no other recommendat ions. 2. Gait instability. He will require physical therapy and occupational therapy at the time of disp osition. 3. Multiple thoracic spine compression fractures. A bone scan was done during this hospitalization and neurosurgery consult was obtained. The fractures do not appear to be acute in nature. He can follow up in the outpatient setting if desired. 4. Spiculated lung mass. The patient has been informed about this. He can follow up with Dr. Jonathon mcarthur in the outpatient setting when his rib fractures have healed for outpatient biopsy. The patient a nd his son are both aware of this. 5. Diabetes. I have continued insulin during this hospitalization. At the time of disposition, I have reinitiated his home insulin regimen. His blood sugar was well controlled during this hospital course. 6. Hypotension. The patient normally suffers from hypertension. During this hospitalization, all of his blood pressure medications were held and he has tolerated this well. He will remain off his losartan and Norvasc, as well as Lopressor until he is further evaluated in the outpatient setting. 7. Renal insufficiency. This is chronic in nature and appears to be at baseline with a creatinine last checked of 1.4. 8. History of coronary artery disease. The patient has continued aspirin as well as beta noe, statin, and Plavix. 9. Sick sinus syndrome, status post pacemaker. No complications noted. DISPOSITION: The patient will be discharged to [facility] for further rehabilitation and management . He does require physical therapy and occupational therapy. I have discussed the patient's care w ith the social work case manager. DISCHARGE MEDICATIONS: Please refer to EMR form. I have discontinued the patient's previously pres cribed Norvasc, Cozaar, Lasix, spironolactone. No new medications have been administered other than Lidoderm patch to the best of my knowledge. I spent greater than 35 minutes in the care, coordinat ion, and management of this patient's disposition. /[id number]/MODL
== END 2016-10-06 15:23 | DRG 184 ==
LOC: EDUNIT# → F3N 20:28
PROVIDERS: ADMIT Student in an Organized Health Care Education/Training Program; ATTEND Student in an Organized Health Care Education/Training Program
DX: S22.43XA Multiple fractures of ribs, bilateral, initial encounter for closed fracture (principal); M48.54XA Collapsed vertebra, not elsewhere classified, thoracic region, initial encounter for fracture; E11.9 Type 2 diabetes mellitus without complications; I95.9 Hypotension, unspecified; I25.10 Atherosclerotic heart disease of native coronary artery without angina pectoris; N40.0 Benign prostatic hyperplasia without lower urinary tract symptoms; Z95.0 Presence of cardiac pacemaker; R26.89 Other abnormalities of gait and mobility; R91.8 Other nonspecific abnormal finding of lung field; N28.9 Disorder of kidney and ureter, unspecified; W07.XXXA Fall from chair, initial encounter; I10 Essential (primary) hypertension; J44.9 Chronic obstructive pulmonary disease, unspecified; Z95.5 Presence of coronary angioplasty implant and graft; Z99.81 Dependence on supplemental oxygen; Z87.891 Personal history of nicotine dependence
CPT/HCPCS: 82947-QW; 92523-GN; 97116-GP; 97161-GP; 97165-GO; 97530-GO; 97535-GO; A9503; G8978-GP-CJ; G8979-GP-CI; G8987-GO-CK; G8988-GO-CI; G9165-GN-CH; G9166-GN-CH; G9167-GN-CH; J1650; J1815; L0172

== ENCOUNTER → 2016-11-26 | Outpatient (CLI) | payer OTHER | LOC: FIMAGING 09:51 | PROVIDERS: ATTEND Internal Medicine | DX: M50.322 Other cervical disc degeneration at C5-C6 level (principal); M43.12 Spondylolisthesis, cervical region ==

== ENCOUNTER → 2017-02-07 | Outpatient (CLI) | payer OTHER | LOC: FIMAGING 13:51 | PROVIDERS: ATTEND Internal Medicine Critical Care Medicine | DX: R91.1 Solitary pulmonary nodule (principal) ==

== ENCOUNTER 2017-02-22 14:30 | Emergency (ER) | payer OTHER ==
[2017-02-22 16:28] VITALS: O2SAT 99
--- NOTE | 2017-02-22 17:28 | EDPHY ---
H & P Stated Complaint: right posterior calf pain post fall on plavix, - loc Time Seen by Provider: 02/22/17 16:23 HPI/ROS: Chief complaint: Right leg injury History of present illness: This is an 86-year-old male accompanied by his children to the emergency department for a right leg injury. Yesterday patient was walking in his own house and he went and twisted to turn around falling onto his right leg. He called his son to help him get up, he was only on the ground for a few minutes. Since then he has had a soreness in his leg. Most pronounced behind the leg around the knee region. It makes it difficult to ambulate although he is still ambulating on his own. There is no report of open wounds. No report of abnormal coolness or paresthesias in the leg. No other trauma is reported. - Personal History Current Tetanus/Diphtheria Vaccine: Yes Current Tetanus Diphtheria and Acellular Pertussis (TDAP): Yes Tetanus Vaccine Date: unsure - Medical/Surgical History Hx Asthma: No Hx Chronic Respiratory Disease: Yes Hx Diabetes: Yes Hx Cardiac Disease: Yes Hx Renal Disease: No Hx Cirrhosis: No Hx Alcoholism: No Hx HIV/AIDS: No Hx Splenectomy or Spleen Trauma: No Other PMH: htn, 6 stents, pacemaker (atrial) 2003, pm, chf, hf, 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 type 2 diabetic,osage - Social History Smoking Status: Former smoker - Physical Exam Exam: General: Alert, nontoxic Skin: No lesions consistent with trauma to the right lower extremity Musculoskeletal: There is no tenderness on palpation of the right lower extremity. He is moving it well. He is ambulating on his own. Vascular: DP and PT pulses 2+. Neurologic: Sensation intact in the right leg. Constitutional: Initial Vital Signs Heart Rate 72 02/22/17 14:35 Respiratory Rate 16 02/22/17 14:35 Blood Pressure 131/65 H 02/22/17 14:35 O2 Sat (%) 98 02/22/17 14:35 O2 Delivery Mode Room Air O2 (L/minute) 4 Allergies/Adverse Reactions: No Known Allergies Allergy (Verified 06/04/16 15:01) Home Medications: Medication Instructions Recorded Insulin Aspart [Novolog] 15 unit SQ 0730 05/06/13 Tamsulosin HCl [Flomax 0.4 MG (*)] 0.4 mg PO HS 05/06/13 Clopidogrel Bisulfate [Plavix (*)] 75 mg PO DAILY 12/29/13 Donepezil HCl [Aricept] 10 mg PO HS 12/29/13 Herbals/Supplements -Info Only 1 ea PO DAILY 12/29/13 Metoprolol Succinate 50 mg PO BID 12/29/13 Aspirin [Aspirin 325 mg (*)] 325 mg PO DAILY 11/19/15 Mirabegron [Myrbetriq] 50 mg PO HS 11/19/15 Cholecalciferol (Vitamin D3) 5,000 unit PO DAILY 10/02/16 [Vitamin D3] Escitalopram Oxalate [Lexapro 10 10 mg PO DAILY 10/02/16 MG] Esomeprazole Magnesium [Nexium] 20 mg PO DAILY 10/02/16 Insulin Aspart [Novolog Flexpen] 10 - 15 unit SQ DAILY@1800 10/02/16 Insulin Glargine,Hum.rec.anlog 40 unit SQ BID 10/02/16 [Basaglar Kwikpen U-100] LORazepam [Ativan (*)] 0.5 mg PO DAILY 10/02/16 Multivitamins [Multivitamin (*)] 1 each PO DAILY 10/02/16 Nitroglycerin [Nitrostat 0.4 mg 0.4 mg SL Q5M PRN 10/02/16 (*)] Rosuvastatin Calcium [Crestor] 10 mg PO DAILY 10/02/16 Vit A/Vit C/Vit E/Zinc/Copper 1 each PO DAILY 10/02/16 [Preservision Areds Tablet] Acetaminophen [Tylenol ES 500 mg 1,000 mg PO TID PRN #0 tab 10/06/16 (*)] Lidocaine 5% [Lidoderm 5% Patch 1 ea TD DAILY@2100 #0 patch 10/06/16 (*)] Patch Removal 1 ea TD DAILY #0 patch 10/06/16 Polyethylene Glycol 3350 [Miralax 17 gm PO DAILY #0 pkt 10/06/16 17 gm (*)] Sennosides/Docusate Sodium 1 - 2 tab PO BID #0 tab 10/06/16 [Senokot-S] oxyCODONE IR [Oxycodone Ir (*)] 5 - 10 mg PO Q3HRS PRN #0 tab 10/06/16 Medical Decision Making - Diagnostics Imaging Results: Imaging Impressions Knee X-Ray 02/22/17 16:27 Impression: 1. Advanced patellofemoral osteoarthritis. 2. Small knee joint effusion. Extremity Venous Study 02/22/17 16:28 Impression: No evidence of deep vein thrombosis. Findings discussed with JADE Camarillo 02/22/2017 at 17:15. Imaging: Discussed imaging studies w/ call center manager Radiologist, I viewed and interpreted images myself ED Course/Re-evaluation: Patient is seen under the supervision of my secondary supervising physician Dr. Fidencio Del Rio. Patient presents with family who are interpreting for him for a right lower extremity injury. He twisted his leg yesterday while turning around in his house and fell onto it. He has been able to ambulate on his own since then. The leg appears neurovascularly intact. X-ray of the knee does show a small joint effusion. Ultrasound is negative DVT which was pursued given the location of discomfort. By history and physical exam I do not appreciate evidence of trauma to other parts of the body. I believe patient will be appropriate for discharge home. I have asked him to use an Baldomero wrap. Patient is to follow up with Orthopedics for recheck and referral information is provided. Return precautions are given. Differential Diagnosis: Included but not limited to contusion, hematoma, sprain or strain, bony fracture, blood clot Departure - Departure Disposition: Home, Routine, Self-Care Clinical Impression: Knee injury Qualifiers: Encounter type: initial encounter Laterality: right Qualified Code(s): S89.91XA - Unspecified injury of right lower leg, initial encounter Condition: Good Instructions: Knee Sprain (ED) Referrals: Tru Bo MD [Primary Care Provider] - As per Instructions Martinez Milan MD [Medical Doctor] - As per Instructions
[2017-02-22 17:55] VITALS: BP 145/74; PULSE 73; RESP 18; TEMP 98.6
== END 2017-02-22 18:03 | disposition home or self-care (01) ==
DX: S89.91XA Unspecified injury of right lower leg, initial encounter (principal); E11.9 Type 2 diabetes mellitus without complications; I50.9 Heart failure, unspecified; Z95.0 Presence of cardiac pacemaker; Z87.891 Personal history of nicotine dependence; Z79.4 Long term (current) use of insulin; Z79.82 Long term (current) use of aspirin; W18.39XA Other fall on same level, initial encounter; Y93.01 Activity, walking, marching and hiking

== ENCOUNTER 2017-05-11 11:15 | Observation (INO) | payer OTHER ==
[2017-05-11] MEDS ORDERED: NS 1,000 ML IV ONE (11:22)
[2017-05-11] MEDS ORDERED: ceFAZolin 2 GM/SWFI 2 GM/20 ML SYR IVP ONE (11:22)
[2017-05-11] MEDS ORDERED: BACITRACIN IRRIGATION/NS 50,000 UNITS/1,000 ML BTL IRR ONE (11:22)
[2017-05-11] MEDS ORDERED: ceFAZolin 2 GM in D5W 100 ML IV ONE (11:30)
--- NOTE | 2017-05-11 11:44 | CPEKG ---
Heart Rate: 79 RR Interval: 759 P-R Interval: 142 QRSD Interval: 192 QT Interval: 492 QTC Interval: 565 P Wells: 15 QRS Wells: -76 T Wave Wells: 115 EKG Severity - ABNORMAL ECG - EKG Impression: ATRIAL-VENTRICULAR DUAL-PACED RHYTHM EKG Impression: Agree with above. No significant change from October 02, 2016 Electronically Signed By: Lc Gonzalez 11-May-2017 11:47:53
[2017-05-11 12:04] LABS: % IMMATURE GRANULYOCYTES 0.3 % (0.0-1.1); ABSOLUTE IMMATURE GRANULOCYTES 0.02 10^3/uL (0.00-0.10); ADD DIFF? NO; ADD MORPH? NO; ADD SCAN? NO; ATYPICAL LYMPHOCYTE FLAG 0 (0-99); FRAGMENT RBC FLAG 0 (0-99); HEMATOCRIT 37.2 % (40.0-51.0); HEMOGLOBIN 13.5 g/dL (13.7-17.5); LEFT SHIFT FLG 0 (0-99); LIPEMIA HEMOLYSIS FLAG 90 (0-99); MEAN CELL HEMOGLOBIN 31.5 pg (27.9-34.1); MEAN CELL HEMOGLOBIN CONCENTR. 36.3 g/dL (32.4-36.7); MEAN CELL VOLUME 86.7 fL (81.5-99.8); MEAN PLATELET VOLUME 9.2 fL (8.7-11.7); PLATELET CLUMPS FLAG 30 (0-99); PLATELET COUNT 254 10^3/uL (150-400); RED BLOOD CELL COUNT 4.29 10^6/uL (4.40-6.38); RED CELL DISTRIBUTION WIDTH 12.6 % (11.5-15.2)
[2017-05-11 12:20] LABS: ANION GAP 10 mEq/L (8-16); CALCIUM 9.3 mg/dL (8.5-10.4); CARBON DIOXIDE 23 mEq/l (22-31); CHLORIDE 106 mEq/L (97-110); CREATININE 1.2 mg/dL (0.7-1.3); GLOMERULAR FILTRATION RATE 57; GLUCOSE 196 mg/dL (70-100); POTASSIUM 4.6 mEq/L (3.5-5.2); SODIUM 139 mEq/L (134-144)
[2017-05-11 12:22] LABS: INR 1.02 (0.83-1.16); PROTIME(PATIENT) 13.3 SEC (12.0-15.0)
--- NOTE | 2017-05-11 12:34 | PDHPUP ---
History & Physical Update H&P update statement: This history and physical update is based on an assessment of the patient which was completed after admission or registration (within 24 hours), but prior to the surgery/procedure. H&P update: H&P reviewed & patient examined, no change in patient's condition since H&P completed
[2017-05-11] MEDS ORDERED: LIDOCAINE 1% 300 MG/30 ML SDV ONE (12:35)
[2017-05-11] MEDS ORDERED: LIDO/EPI 1% **for epidural** 30 ML SDV ONE (12:35)
[2017-05-11] MEDS ORDERED: BUPIVACAINE 0.5% 30 ML SDV ONE (12:35)
[2017-05-11] MEDS ORDERED: MIDAZOLAM 2 MG/2 ML VIAL ONE (12:37)
[2017-05-11] MEDS ORDERED: fentaNYL 100 MCG/2 ML INJ ONE (12:38)
--- NOTE | 2017-05-11 13:33 | PDANEPAE ---
ANE History of Present Illness 87 year old with pacemaker ANE Past Medical History - Cardiovascular History Hx Hypertension: Yes Hx Chest Pain: Yes - Pulmonary History Hx Oxygen in Use at Home: Yes Hx Sleep Apnea: Yes - Endocrine History Hx Diabetes: Yes Obesity: moderate - Chronic Pain History Chronic Pain: No ANE Review of Systems Review of systems is: negative Review of Systems: ANE Patient History - Allergies Allergies/Adverse Reactions: No Known Allergies Allergy (Verified 06/04/16 15:01) - Home Medications Home medications: home medication list seen and reviewed Home Medications: Tamsulosin HCl [Flomax 0.4 MG (*)] 0.4 mg PO HS 05/06/13 [Last Taken 05/10/17] Clopidogrel Bisulfate [Plavix (*)] 75 mg PO DAILY 12/29/13 [Last Taken 05/10/17] Donepezil HCl [Aricept] 10 mg PO HS 12/29/13 [Last Taken 05/10/17] Herbals/Supplements -Info Only 1 ea PO DAILY 12/29/13 [Last Taken Unknown] Aspirin [Aspirin 325 mg (*)] 325 mg PO DAILY 11/19/15 [Last Taken 05/10/17] Mirabegron [Myrbetriq] 50 mg PO HS 11/19/15 [Last Taken 05/10/17] Escitalopram Oxalate [Lexapro 10 MG] 10 mg PO DAILY 10/02/16 [Last Taken ] Esomeprazole Magnesium [Nexium] 20 mg PO DAILY 10/02/16 [Last Taken 05/10/17] LORazepam [Ativan (*)] 0.5 mg PO DAILY 10/02/16 [Last Taken 05/10/17] Nitroglycerin [Nitrostat 0.4 mg (*)] 0.4 mg SL Q5M PRN 10/02/16 [Last Taken Unknown] Vit A/Vit C/Vit E/Zinc/Copper [Preservision Areds Tablet] 1 each PO DAILY [Last Taken 05/10/17] Furosemide [Lasix 40 MG (*)] 40 mg PO DAILY 05/11/17 [Last Taken Unknown] Insulin Aspart [novoLOG] 15 - 20 units SC DAILY 05/11/17 [Last Taken 05/10/17] Insulin Detemir [Levemir] 20 unit SQ BID 05/11/17 [Last Taken 05/10/17 21:00] Losartan Potassium [Cozaar 50 mg (*)] 100 mg PO DAILY 05/11/17 [Last Taken 05/10] Metoprolol Succinate Xr [Toprol Xl 50 mg (*)] 50 mg PO DAILY 05/11/17 [Last Taken 05/10/17] Modafinil [Provigil 100 mg (*)] 100 mg PO DAILY 05/11/17 [Last Taken 05/10/17] Spironolactone [Aldactone 25 MG (*)] 25 mg PO DAILY 05/11/17 [Last Taken Unknown ] amLODIPine BESYLATE [Norvasc 5 mg (*)] 5 mg PO DAILY 05/11/17 [Last Taken ] - Anes Hx Anes Hx: no prior problems - Smoking Hx Smoking Status: Former smoker - Alcohol Use Alcohol Use: None ANE Labs/Vital Signs - Labs Result Diagrams: 05/11/17 11:55 05/11/17 11:55 - Vital Signs Height: 167.64 cm Weight: 95.254 kg ANE Physical Exam - Airway Neck exam: decreased ROM Mallampati Score: Class 2 - Pulmonary Pulmonary: no respiratory distress, clear to auscultation - Cardiovascular Cardiovascular: regular rate and rhythym, no murmur, rub, or gallop - ASA Status ASA Status: III ANE Anesthesia Plan Anesthesia Plan: MAC
[2017-05-11] MEDS ORDERED: PROPOFOL/EMULSION 500 MG/50 ML BOTTLE IV ONE (13:50)
[2017-05-11] MEDS ORDERED: PROPOFOL 200 MG/20 ML VIAL ONE (15:03)
[2017-05-11] MEDS ORDERED: NITROGLYCERIN 0.4 MG BTL SL PRN (15:14)
--- NOTE | 2017-05-11 15:34 | POSTANESTH ---
Post Anesthetic Evaluation Cardiovascular Status: Similar to Pre-Op Cond Respiratory Status: Similar to Pre-op Cond. Level of Consciousness/Mental Status: Mildly Sleepy, Arousable Pain Control: Adequate, Prn Tx Ordered Nausea/Vomiting Control: Adequate, Prn Tx Ordered Complications Possibly Related to Anesthesia: None Noted
[2017-05-11] MEDS ORDERED: ATROPINE SULFATE 1 MG/10 ML SYR ONE (15:40)
[2017-05-11] MEDS ORDERED: INSULIN LISPRO 100 UNIT/ML SC PRN (17:16)
[2017-05-11] MEDS ORDERED: NON-FORMULARY NEW DRUG (Donepezil Hcl [Aricept] 10 MG) PO SCH (21:00)
[2017-05-11] MEDS ORDERED: DONEPEZIL HCL 5 MG TAB PO SCH (21:00)
[2017-05-11] MEDS ORDERED: NON-FORMULARY NEW DRUG (Mirabegron [Myrbetriq] 50 MG) PO SCH (21:00)
[2017-05-11] MEDS ORDERED: NON-FORMULARY NEW DRUG (Insulin Detemir [Levemir] 20 UNIT) SQ SCH (21:00)
[2017-05-11] MEDS ORDERED: TAMSULOSIN HCL 0.4 MG CAP PO SCH (21:00)
[2017-05-11] MEDS ORDERED: INSULIN GLARGINE 100 UNITS/ML SYRINGE SC SCH (21:00)
[2017-05-12 05:25] LABS: % IMMATURE GRANULYOCYTES 0.3 % (0.0-1.1); ABSOLUTE IMMATURE GRANULOCYTES 0.02 10^3/uL (0.00-0.10); ADD DIFF? NO; ADD MORPH? NO; ADD SCAN? NO; ATYPICAL LYMPHOCYTE FLAG 10 (0-99); FRAGMENT RBC FLAG 0 (0-99); HEMATOCRIT 34.9 % (40.0-51.0); HEMOGLOBIN 12.2 g/dL (13.7-17.5); LEFT SHIFT FLG 0 (0-99); LIPEMIA HEMOLYSIS FLAG 90 (0-99); MEAN CELL HEMOGLOBIN 30.6 pg (27.9-34.1); MEAN CELL VOLUME 87.5 fL (81.5-99.8); MEAN PLATELET VOLUME 9.4 fL (8.7-11.7); PLATELET CLUMPS FLAG 0 (0-99); PLATELET COUNT 224 10^3/uL (150-400); RED BLOOD CELL COUNT 3.99 10^6/uL (4.40-6.38); RED CELL DISTRIBUTION WIDTH 12.5 % (11.5-15.2)
[2017-05-12 05:44] LABS: ANION GAP 11 mEq/L (8-16); CALCIUM 8.6 mg/dL (8.5-10.4); CARBON DIOXIDE 23 mEq/l (22-31); CHLORIDE 106 mEq/L (97-110); CREATININE 1.1 mg/dL (0.7-1.3); GLOMERULAR FILTRATION RATE > 60; GLUCOSE 135 mg/dL (70-100); SODIUM 140 mEq/L (134-144)
[2017-05-12 07:54] VITALS: BP 171/81; PULSE 64; RESP 13; TEMP 98.1; O2SAT 95
[2017-05-12] MEDS ORDERED: PRESERVISION AREDS2 FORMULA EYE VIT 1 EACH PO SCH (08:00)
--- NOTE | 2017-05-12 08:33 | CPEKG ---
Heart Rate: 64 RR Interval: 938 P-R Interval: 196 QRSD Interval: 196 QT Interval: 532 QTC Interval: 549 P [place]: -32 QRS [place]: -71 T Wave [place]: 119 EKG Severity - ABNORMAL ECG - EKG Impression: ATRIAL-VENTRICULAR DUAL-PACED RHYTHM EKG Impression: Agree with above. No significant change from May 11, 2017 Electronically Signed By: Lc Gonzalez 12-May-2017 09:58:03
[2017-05-12] MEDS ORDERED: amLODIPine BESYLATE 5 MG TAB PO SCH (09:00)
[2017-05-12] MEDS ORDERED: FUROSEMIDE 40 MG TAB PO SCH (09:00)
[2017-05-12] MEDS ORDERED: PANTOPRAZOLE SODIUM 40 MG TAB PO SCH (09:00)
[2017-05-12] MEDS ORDERED: MODAFINIL 100 MG TAB PO SCH (09:00)
[2017-05-12] MEDS ORDERED: LORazepam 0.5 MG TAB PO SCH (09:00)
[2017-05-12] MEDS ORDERED: NON-FORMULARY NEW DRUG (Vit A/Vit C/Vit E/Zinc/Copper [Preservision Areds Tablet] 1 EACH) PO SCH (09:00)
[2017-05-12] MEDS ORDERED: Herbals/Supplements -Info Only PO SCH (09:00)
[2017-05-12] MEDS ORDERED: ESCITALOPRAM OXALATE 10 MG TAB PO SCH (09:00)
[2017-05-12] MEDS ORDERED: LOSARTAN POTASSIUM 50 MG TAB PO SCH (09:00)
[2017-05-12] MEDS ORDERED: SPIRONOLACTONE 25 MG TAB PO SCH (09:00)
[2017-05-12] MEDS ORDERED: METOPROLOL SUCCINATE XR 50 MG TAB PO SCH (09:00)
[2017-05-12] MEDS ORDERED: NON-FORMULARY NEW DRUG (Esomeprazole Magnesium [Nexium] 20 MG) PO SCH (09:00)
[2017-05-12] MEDS ORDERED: ASPIRIN 325 MG TAB PO SCH (09:00)
[2017-05-12] MEDS ORDERED: INSULIN GLARGINE 100 UNITS/ML SYRINGE SC SCH (09:00)
[2017-05-12] MEDS ORDERED: CLOPIDOGREL BISULFATE 75 MG TAB PO SCH (09:00)
[2017-05-12] MEDS ORDERED: INSULIN ASPART SC SCH (09:00)
--- NOTE | 2017-05-12 09:28 | PDIAF ---
- Diagnosis Diagnosis: CHB s/p pacer Code Status: Full Code - Medication Management Discharge Medications: Medications to Continue on Transfer Tamsulosin HCl [Flomax 0.4 MG (*)] 0.4 mg PO HS 05/06/13 [Last Taken 05/10/17] Clopidogrel Bisulfate [Plavix (*)] 75 mg PO DAILY 12/29/13 [Last Taken 05/10/17] Donepezil HCl [Aricept] 10 mg PO HS 12/29/13 [Last Taken 05/10/17] Herbals/Supplements -Info Only 1 ea PO DAILY 12/29/13 [Last Taken Unknown] Aspirin [Aspirin 325 mg (*)] 325 mg PO DAILY 11/19/15 [Last Taken 05/10/17] Mirabegron [Myrbetriq] 50 mg PO HS 11/19/15 [Last Taken 05/10/17] Escitalopram Oxalate [Lexapro 10 MG] 10 mg PO DAILY 10/02/16 [Last Taken ] Esomeprazole Magnesium [Nexium] 20 mg PO DAILY 10/02/16 [Last Taken 05/10/17] LORazepam [Ativan (*)] 0.5 mg PO DAILY 10/02/16 [Last Taken 05/10/17] Nitroglycerin [Nitrostat 0.4 mg (*)] 0.4 mg SL Q5M PRN 10/02/16 [Last Taken Unknown] Vit A/Vit C/Vit E/Zinc/Copper [Preservision Areds Tablet] 1 each PO DAILY [Last Taken 05/10/17] Furosemide [Lasix 40 MG (*)] 40 mg PO DAILY 05/11/17 [Last Taken Unknown] Insulin Aspart [novoLOG] 15 - 20 units SC DAILY 05/11/17 [Last Taken 05/10/17] Insulin Detemir [Levemir] 30 unit SC HS 05/11/17 [Last Taken 05/10/17] Insulin Detemir [Levemir] 40 unit SQ DAILY 05/11/17 [Last Taken 05/10/17] Losartan Potassium [Cozaar 50 mg (*)] 100 mg PO DAILY 05/11/17 [Last Taken 05/10] Metoprolol Succinate Xr [Toprol Xl 50 mg (*)] 50 mg PO DAILY 05/11/17 [Last Taken 05/10/17] Modafinil [Provigil 100 mg (*)] 100 mg PO DAILY 05/11/17 [Last Taken 05/10/17] Spironolactone [Aldactone 25 MG (*)] 25 mg PO DAILY 05/11/17 [Last Taken Unknown ] amLODIPine BESYLATE [Norvasc 5 mg (*)] 5 mg PO DAILY 05/11/17 [Last Taken ] Discharge Medications: Refer to the Discharge Home Medication list for PRN reason. PICC Care - Routine: N/A - Orders Services needed: Home Care, Registered Nurse Home Care Face to Face: I certify that this patient was under my care and that I had the required [id number] encounter meeting the encounter requirements on the discharge day. My findings support the fact that the patient is homebound as defined in Home Care Face to Face Continued: CMS Chapter 7 Medicare Benefits Manual 30.1.1 , The condition of the patient is such that there exists a normal inability to leave home and consequently, leaving home would require a considerable and taxing effort. Diet Recommendation: cardiac -low fat low salt Diet Texture: Regular Texture Diet [place]: Not applicable - Follow Up Care Current Providers and Referrals: Rufino Diana MD [Medical Doctor] - 05/18/17 2:00 pm
--- NOTE | 2017-05-12 10:51 | GDS ---
[f rep st] DISCHARGE SUMMARY DISCHARGE DIAGNOSES: 1. Complete heart block, status post pacer which reached elective replacement interval, requiring a generator change on 05/11/2017. 2. Hypertension. 3. Diabetes. 4. Coronary artery disease. 5. Hyperlipidemia. 6. Dyspnea, on chronic oxygen. HOSPITAL COURSE: For detailed H and P, please see prior dictation. Briefly, the patient is an 87-ye ar-old male with a history of complete heart block, status post pacemaker placement. He presented to our office, and his device was at [facility]; therefore, he was scheduled for a generator change. This was performed by Dr. Rufino Diana on 05/11/2017. He had a Biotronik device placed. His leads were work ing properly and therefore not adjusted. The following day, he denied any significant discomfort ove r his pacer site. He was monitored on telemetry and remained AV paced. He does have a history of hy pertension; his blood pressure is currently 171/81, but he has not received his morning medications. He does have some issues with daily care; therefore, he will be discharged home with home health. PHYSICAL EXAMINATION: VITALS: Blood pressure 171/81, heart rate 64, oxygen saturation of 95% on 4 L of oxygen, afebrile. LUNGS: Clear to auscultation. No wheezes, rhonchi, or crackles auscultated. CARDIAC: Regular rate and rhythm without any significant murmurs, rubs, or gallops appreciated. SKIN: Pacer site is clean and intact without any evidence of infection or hematoma. DISCHARGE MEDICATIONS: His medications are unchanged. Please see discharge information for details on his medical regimen. PLAN: The patient is currently stable and ready for discharge home. He will be discharged with home health care. He has been given pacer precautions. He will follow up in our office on 05/18 at 2 p. m. for pacer interrogation and wound check. TIME SPENT: Greater than 30 minutes was spent coordinating the patient's care today. /[id number]/MODL
--- NOTE | 2017-05-12 12:44 | ASMTCASEMG ---
Living Arrangements What is your living Answers: With Spouse arrangement? Who do you live with? Type Of Residence What kind of residence do Answers: House you live in? Discharge Plan Comments Coordination Status Comments Notes: Pt is a 87 y/o man admitted w/ GEN change. Pt and are [place] citizen speaking. [employer] services called. PT is recommending SNF. CM met w/ pt and for dispo planning. Pt and would like to have HC services, PT, OT, RN through [facility]. CM made a referral to [facility]. [facility] able to accept pt. provided ALMAS Romero w/ phone number to give report. CM available for changes. Date Signed: 05/12/2017 12:43 PM Electronically Signed By:DODIE Lockhart
--- NOTE | 2017-05-12 17:04 | ASDISCHSUM ---
Discharge Information Plan Status:Home with Home Health Medically Cleared to Leave:05/12/2017 Discharge Date:05/12/2017 01:20 PM CM D/C Disposition: ADT D/C Disposition:Home Health Service Projected Discharge Date:05/12/2017 12:00 AM Transportation at D/C: Discharge Delay Reason: Follow-Up Date:05/12/2017 12:00 AM Discharge Slot: Final Diagnosis: Placement Information Patient Contact Information Contact Name:AARTI Relationship: Address:[address] [place] [address] Work Phone: City:[place] Alternate Phone: State/Zip Code:[place] [address] Email: Financial Information Financial Class: Primary Plan Desc:MEDICARE OUTPATIENT Primary Plan Number:[id number] Secondary Plan Desc:GEOFFREY Secondary Plan Number:[id number] Assessment Information [facility] Initial CM Assessment Living Arrangements What is your living Answers: With Spouse arrangement? Who do you live with? Type Of Residence What kind of residence do Answers: House you live in? Discharge Plan Comments Coordination Status Comments Notes: Pt is a 87 y/o man admitted w/ GEN change. Pt and are [place] speaking. [employer] services called. PT is recommending SNF. CM met w/ pt and for dispo planning. Pt and would like to have HC services, PT, OT, RN through [facility]. CM made a referral to [facility]. [facility] able to accept pt. provided ALMAS Romero w/ phone number to give report. CM available for changes. Date Signed: 05/12/2017 12:43 PM Electronically Signed By:DODIE Lockhart Intervention Information Intervention Type:*NORMA-Signed Date of Service:05/12/2017 10:23 AM Patient Type:Observation Staff Member:Luz Maria Maciel Hours: Discipline: Severity: Comment:
--- NOTE | 2017-05-13 14:03 | EPPROC ---
Electrophysiology Procedure Note: PROCEDURE PERFORMED: Temporary pacemaker wire placement 1. AV Pacemaker generator change INDICATION: Pacemaker dependent patient with pacemaker generator at [facility] Bradycardia PROCEDURE NOTE: Patient presented to the cardiac catheterization laboratory in a fasting, postabsorptive state. Moderate sedation given. Parts prepared and draped. LA given. Using usual technique, RFV accessed and sheath placed. [place] tipped temporary pacemaker placed. Good numbers were obtained. The left infraclavicular area was prepped and draped in the usual sterile fashion. Lidocaine plus bupivacaine was used for local anesthesia. Using a combination of blunt and sharp dissection and electrocautery, the dissection was carried down to the prepectoral fascia and the existing pacemaker pocket was opened. The pacemaker generator was disconnected from the leads and the lead thresholds and impedance were checked. The pacemaker pocket was copiously irrigated with antibiotic solution. The pocket was again inspected for any bleeding. The leads were attached to the pacemaker securely. The pacemaker was inserted into the pocket and secured in place with a nonabsorbable suture. Temporary pacemaker wire was removed under fluoroscopic guidance. The pacemaker pocket was closed in 3 layers with absorbable monocryl sutures.. Appropriate dressing was applied. The patient left the cardiac catheterization laboratory in stable condition. Serial Numbers: 1. Device Odd Geologyronik Etrinsa 8 SN [id number] 2. Atrial Lead Siemens [id number] SN [id number] 3. Ventricular Lead Biotronik SX53 SN [id number] Stimulation Thresholds & Impedance Measurements: 1. Atrial Lead n/a 0.8@0.4ms, 780Ohms 2. Ventricular Lead 1@0.4ms, 381Ohms Anselmo Pacing Parameters 1. Pacing mode DDD 2. Lower rate 60 3. Upper tracking rate 130 4. Upper sensor rate 130 Patient Problems: Problems Problem Status Onset Abdominal pain Acute CAD - Coronary arteriosclerosis Acute Chest wall pain Acute Knee injury Acute Pacemaker generator end of life Acute Syncope and collapse Acute Vertigo Acute
== END 2017-05-12 13:20 | disposition home health service (06) ==
LOC: FCATH 11:15 → F2W 15:31
PROVIDERS: ADMIT Internal Medicine Cardiovascular Disease; ATTEND Internal Medicine Cardiovascular Disease
PROC: 0JH607Z Insertion of Cardiac Resynchronization Pacemaker Pulse Generator into Chest Subcutaneous Tissue and Fascia, Open Approach (ICD-10-PCS; principal; 2017-05-11)
PROC: 0JPT0PZ Removal of Cardiac Rhythm Related Device from Trunk Subcutaneous Tissue and Fascia, Open Approach (ICD-10-PCS; principal; 2017-05-11)
DX: Z45.010 Encounter for checking and testing of cardiac pacemaker pulse generator [battery] (principal); I44.2 Atrioventricular block, complete; E11.9 Type 2 diabetes mellitus without complications; I25.10 Atherosclerotic heart disease of native coronary artery without angina pectoris; E78.5 Hyperlipidemia, unspecified; R06.09 Other forms of dyspnea; R00.1 Bradycardia, unspecified; Z99.81 Dependence on supplemental oxygen
CPT/HCPCS: 33228; 93005; 97161; 97165; 97530; C1785; G8978; G8979; G8987; G8988; G8989; J0690; J1644; J1815; J2250; J2704; J3010; J0461

== ENCOUNTER 2017-06-09 14:55 | Emergency (ER) | payer OTHER ==
[2017-06-09 15:05] VITALS: TEMP 98.6
--- NOTE | 2017-06-09 15:33 | EDPHY ---
H & P Time Seen by Provider: 06/09/17 15:20 HPI/ROS: CHIEF COMPLAINT: High blood pressure HISTORY OF PRESENT ILLNESS: Patient's was concerned because his blood pressure was 177/96 at 10:00 a.m.. He took his usual medications which include Lasix 40 mg, losartan 100 mg, metoprolol 50 mg, Norvasc 5 mg. No recent changes in his prescriptions. On further history please see emergency Department Course or MDM. REVIEW OF SYSTEMS: Eye: no change in vision ENT: no sore throat Cardiac: no chest pain or syncope Pulmonary: Chronic oxygen, no change Abdomen: no vomiting, diarrhea, abdominal pain Musculoskeletal: no back pain Skin: no rash Neuro: Was dizzy earlier today at 10:00 a.m. but not now. Constitutional: no fever : no urinary symptoms A comprehensive 10 point review of systems is otherwise negative aside from elements mentioned in the history of present illness. PAST MEDICAL HISTORY: Includes complete heart block with pacemaker and generator change about 1 month ago, hypertension, diabetes, coronary disease, chronic oxygen. Social history: Here with his , primary care is Anupam at [facility] General Appearance: Alert and conversant, cooperative. Eyes: No scleral icterus. ENT, Mouth: Normal mucous membranes. Respiratory: Normal respiratory effort, breath sounds equal, lungs are clear to auscultation. Cardiovascular: Frequent extrasystoles, no murmur. Gastrointestinal: Abdomen is soft and non tender. Neurological: Alert, responds appropriately to commands. Moves all 4 extremities and mobile using a walker. Skin: Warm and dry, no rashes. Musculoskeletal: No peripheral edema and no joint swelling. Psychiatric: Not agitated. Emergency Department course/MDM: Patient is currently asymptomatic. He had some dizziness this morning, but that is resolved and he is back to his baseline. His blood pressure at the time of my evaluation is 155/84 with a heart rate of 70. Discussed with Brody for Anupam, no changes in medications will followup by phone Tuesday. 1602: Discussed with and [place] food mixer on phone; he took a single 300mg metoprolol of hers at 10am today, because his blood pressure was elevated. Poison control consulted at this time, patient w/o symptoms now, case# [id number]. Recommendation is to observe for total of 8 hours since medication ingestion, which would be 6:00 p.m. tonight. Discharge if continues to be asymptomatic without hypotension or bradycardia. 1800: He is again hypertensive, will resume his regular medications tonight. Does not have signs or symptoms of end-organ damage or hypertensive emergency. Smoking Status: Former smoker Constitutional: Initial Vital Signs Temperature (C) 37 C 06/09/17 15:02 Heart Rate 79 06/09/17 15:02 Respiratory Rate 18 06/09/17 15:02 Blood Pressure 165/85 H 06/09/17 15:02 O2 Sat (%) 95 06/09/17 15:02 O2 Delivery Mode Nasal Cannula O2 (L/minute) 4 Allergies/Adverse Reactions: No Known Allergies Allergy (Verified 06/09/17 15:01) Home Medications: Medication Instructions Recorded Tamsulosin HCl [Flomax 0.4 MG (*)] 0.4 mg PO HS 05/06/13 Clopidogrel Bisulfate [Plavix (*)] 75 mg PO DAILY 12/29/13 Donepezil HCl [Aricept] 10 mg PO HS 12/29/13 Herbals/Supplements -Info Only 1 ea PO DAILY 12/29/13 Aspirin [Aspirin 325 mg (*)] 325 mg PO DAILY 11/19/15 Mirabegron [Myrbetriq] 50 mg PO HS 11/19/15 Escitalopram Oxalate [Lexapro 10 10 mg PO DAILY 10/02/16 MG] Esomeprazole Magnesium [Nexium] 20 mg PO DAILY 10/02/16 LORazepam [Ativan (*)] 0.5 mg PO DAILY 10/02/16 Nitroglycerin [Nitrostat 0.4 mg 0.4 mg SL Q5M PRN 10/02/16 (*)] Vit A/Vit C/Vit E/Zinc/Copper 1 each PO DAILY 10/02/16 [Preservision Areds Tablet] Furosemide [Lasix 40 MG (*)] 40 mg PO DAILY 05/11/17 Insulin Aspart [novoLOG] 15 - 20 units SC DAILY 05/11/17 Insulin Detemir [Levemir] 30 unit SC HS 05/11/17 Insulin Detemir [Levemir] 40 unit SQ DAILY 05/11/17 Losartan Potassium [Cozaar 50 mg 100 mg PO DAILY 05/11/17 (*)] Metoprolol Succinate Xr [Toprol Xl 50 mg PO DAILY 05/11/17 50 mg (*)] Modafinil [Provigil 100 mg (*)] 100 mg PO DAILY 05/11/17 Spironolactone [Aldactone 25 MG 25 mg PO DAILY 05/11/17 (*)] amLODIPine BESYLATE [Norvasc 5 mg 5 mg PO DAILY 05/11/17 (*)] Departure - Departure Disposition: Home, Routine, Self-Care Clinical Impression: Hypertension Condition: Good Instructions: Hypertension (ED) Referrals: Tru Bo MD [Primary Care Provider] - As per Instructions
[2017-06-09 18:10] VITALS: BP 189/93; PULSE 72; RESP 18; O2SAT 92
== END 2017-06-09 18:10 | disposition home or self-care (01) ==
DX: I10 Essential (primary) hypertension (principal); E11.9 Type 2 diabetes mellitus without complications; Z79.4 Long term (current) use of insulin; Z79.82 Long term (current) use of aspirin; Z87.891 Personal history of nicotine dependence; Z95.0 Presence of cardiac pacemaker

== ENCOUNTER 2017-09-28 04:08 | Inpatient (IN) | payer OTHER ==
--- NOTE | 2017-09-28 04:36 | EDPHY ---
H & P Time Seen by Provider: 09/28/17 04:10 HPI/ROS: Chief Complaint: Altered mental status, weakness, fall HPI: 79-year-old [place] Islander-speaking male with a history of hypertension and diabetes. Patient has been complaining of a chronic cough for the last couple months and had an appointment with Dr. James earlier today. Patient normally sleeps in late but got up early to go to his appointment. Through the course the day patient is becoming increasingly confused and weak. is uncertain if he is taking his medications. This morning he was unable to get up to go the bathroom was incontinent. Is unable stand. On EMS arrival patient was not answering questions or following commands. He was maintaining his airway. Blood sugar was noted to be in the 500s. There are no obvious signs of trauma. Patient is not answering questions in unable to provide any further history at this time. Patient's was stating that he was complaining of a headache this morning. ROS: Unobtainable secondary to the patient's confusion PMH: Hypertension, diabetes Social History: Lives with his Family History: non-contributory Physical Exam: Gen: Awake, not answering questions or following commands HEENT: Nose: no rhinorrhea Eyes: PERRLA, EOMI Mouth: Dry mucosa Neck: no JVD Chest: nontender, lungs clear to auscultation Heart: S1, S2 normal, no murmur Abd: Obese, Soft, non-tender, no guarding Back: no CVA tenderness, no midline tenderness Ext: no edema, non-tender Skin: no rash Neuro: CN II-XII intact, Sensation grossly intact, Strength 5/5 in bilateral upper and lower extremities - Personal History Tetanus Vaccine Date: unsure - Medical/Surgical History Hx Asthma: No Hx Chronic Respiratory Disease: Yes Hx Diabetes: Yes Hx Cardiac Disease: Yes Hx Renal Disease: No Hx Cirrhosis: No Hx Alcoholism: No Hx HIV/AIDS: No Hx Splenectomy or Spleen Trauma: No Other PMH: htn, 6 stents, pacemaker (atrial) 2003, pm, chf, hf, 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 type 2 diabetic,[place] - Social History Smoking Status: Former smoker Constitutional: Initial Vital Signs Temperature (C) 36.6 C 09/28/17 04:20 Heart Rate 77 09/28/17 04:20 Respiratory Rate 18 09/28/17 04:20 Blood Pressure 186/117 H 09/28/17 04:20 O2 Sat (%) 91 L 09/28/17 04:20 O2 Delivery Mode Room Air O2 (L/minute) 3 Allergies/Adverse Reactions: No Known Allergies Allergy (Verified 09/28/17 04:19) Home Medications: Medication Instructions Recorded Tamsulosin HCl [Flomax 0.4 MG (*)] 0.4 mg PO HS 05/06/13 Clopidogrel Bisulfate [Plavix (*)] 75 mg PO DAILY 12/29/13 Donepezil HCl [Aricept] 10 mg PO HS 12/29/13 Herbals/Supplements -Info Only 1 ea PO DAILY 12/29/13 Aspirin [Aspirin 325 mg (*)] 325 mg PO DAILY 11/19/15 Mirabegron [Myrbetriq] 50 mg PO HS 11/19/15 Escitalopram Oxalate [Lexapro 10 10 mg PO DAILY 10/02/16 MG] Esomeprazole Magnesium [Nexium] 20 mg PO DAILY 10/02/16 LORazepam [Ativan (*)] 0.5 mg PO DAILY 10/02/16 Nitroglycerin [Nitrostat 0.4 mg 0.4 mg SL Q5M PRN 10/02/16 (*)] Vit A/Vit C/Vit E/Zinc/Copper 1 each PO DAILY 10/02/16 [Preservision Areds Tablet] Furosemide [Lasix 40 MG (*)] 40 mg PO DAILY 05/11/17 Insulin Aspart [novoLOG] 15 - 20 units SC DAILY 05/11/17 Insulin Detemir [Levemir] 30 unit SC HS 05/11/17 Insulin Detemir [Levemir] 40 unit SQ DAILY 05/11/17 Losartan Potassium [Cozaar 50 mg 100 mg PO DAILY 05/11/17 (*)] Metoprolol Succinate Xr [Toprol Xl 50 mg PO DAILY 05/11/17 50 mg (*)] Modafinil [Provigil 100 mg (*)] 100 mg PO DAILY 05/11/17 Spironolactone [Aldactone 25 MG 25 mg PO DAILY 05/11/17 (*)] amLODIPine BESYLATE [Norvasc 5 mg 5 mg PO DAILY 05/11/17 (*)] Medical Decision Making - Diagnostics EKG Interpretation: ECG time 5:03 a.m. Atrial ventricular dual paced rhythm Imaging Results: CT scan of the head shows stable chronic changes per Dr. Allan ED Course/Re-evaluation: 87-year-old clean with altered mental status falls and urinary incontinence. He is hyperglycemic with uncertain compliance with his medications. He is mildly hypertensive here. CT scan is unremarkable. He is not acidotic at this time. Chest x-ray does not show an obvious infiltrate blood given his mental status is not an ideal film. Still awaiting a urine. He is afebrile and is remainder of his vital signs are appropriate. No focal source of infection identified. I have discussed the case with Dr. Orozco, hospitalist. He will admit to his service to [facility] for further care. Fluids have been ordered. - Data Points Laboratory Results: Laboratory Results 09/28/17 04:19 09/28/17 04:19 09/28/17 09/28/17 04:19 04:19 WBC 10.11 10^3/uL H 10^3/uL (3.80-9.50) RBC 4.80 10^6/uL 10^6/uL (4.40-6.38) Hgb 14.4 g/dL g/dL (13.7-17.5) Hct 40.1 % % (40.0-51.0) MCV 83.5 fL fL (81.5-99.8) MCH 30.0 pg pg (27.9-34.1) MCHC 35.9 g/dL g/dL (32.4-36.7) RDW 12.7 % % (11.5-15.2) Plt Count 251 10^3/uL 10^3/uL (150-400) MPV 9.7 fL fL (8.7-11.7) Neut % (Auto) 83.1 % H % (39.3-74.2) Lymph % (Auto) 8.3 % L % (15.0-45.0) [place] % (Auto) 7.6 % % (4.5-13.0) Eos % (Auto) 0.1 % L % (0.6-7.6) Baso % (Auto) 0.4 % % (0.3-1.7) Nucleat RBC Rel Count 0.0 % % (0.0-0.2) Absolute Neuts (auto) 8.40 10^3/uL H 10^3/uL (1.70-6.50) Absolute Lymphs (auto) 0.84 10^3/uL L 10^3/uL (1.00-3.00) Absolute Monos (auto) 0.77 10^3/uL 10^3/uL (0.30-0.80) Absolute Eos (auto) 0.01 10^3/uL L 10^3/uL (0.03-0.40) Absolute Basos (auto) 0.04 10^3/uL 10^3/uL (0.02-0.10) Absolute Nucleated RBC 0.00 10^3/uL 10^3/uL (0-0.01) Immature Gran % 0.5 % % (0.0-1.1) Immature Gran # 0.05 10^3/uL 10^3/uL (0.00-0.10) Sodium 135 mEq/L mEq/L (135-145) Potassium 5.0 mEq/L mEq/L (3.5-5.2) Chloride 99 mEq/L mEq/L (97-110) Carbon Dioxide 20 mEq/l L mEq/l (22-31) Anion Gap 16 mEq/L mEq/L (8-16) BUN 23 mg/dL mg/dL (7-23) Creatinine 1.2 mg/dL mg/dL (0.7-1.3) Estimated GFR 57 Glucose 502 mg/dL H* mg/dL (70-100) Calcium 9.2 mg/dL mg/dL (8.5-10.4) Total Bilirubin 1.0 mg/dL mg/dL (0.1-1.4) AST 21 IU/L IU/L (17-59) ALT 37 IU/L IU/L (21-72) Alkaline Phosphatase 182 IU/L H IU/L (38-126) Troponin I 0.071 ng/mL H ng/mL (0.000-0.034) Total Protein 6.5 g/dL g/dL (6.3-8.2) Albumin 4.0 g/dL g/dL (3.5-5.0) Lipase 39 IU/L IU/L (23-300) Medications Given: Discontinued Medications Sodium Chloride (Ns) 1,000 mls @ 0 mls/hr IV ONCE ONE PRN Reason: Wide Open Stop: 09/28/17 04:40 Last Admin: 09/28/17 04:46 Dose: 1,000 mls Midazolam HCl (Versed) 2 mg IVP EDNOW ONE Stop: 09/28/17 05:08 Last Admin: 09/28/17 05:08 Dose: 2 mg Departure - Departure Disposition: [facility] Clinical Impression: Hyperglycemia, Altered mental status Condition: Serious Referrals: Patient,NotPresent [Unknown] - As per Instructions
[2017-09-28 04:39] LABS: PLATELET COUNT 251 10^3/uL (150-400)
[2017-09-28] MEDS ORDERED: NS 1,000 ML IV ONE ×2 (04:39→05:20)
[2017-09-28] MEDS ORDERED: MIDAZOLAM 10 MG/2 ML VIAL ONE (04:51)
[2017-09-28] MEDS ORDERED: MIDAZOLAM 2 MG/2 ML VIAL IVP ONE (05:07)
[2017-09-28] MEDS ORDERED: ONDANSETRON 4 MG/2 ML VIAL IVP PRN (05:20)
[2017-09-28] MEDS ORDERED: ACETAMINOPHEN 325 MG TAB PO PRN (05:20)
[2017-09-28] MEDS ORDERED: ONDANSETRON DISINTEGRATING 4 MG TAB PO PRN (05:20)
--- NOTE | 2017-09-28 05:27 | CPEKG ---
Heart Rate: 79 RR Interval: 759 P-R Interval: 184 QRSD Interval: 194 QT Interval: 504 QTC Interval: 579 P Lynx: -39 QRS Lynx: -64 T Wave Lynx: 118 EKG Severity - ABNORMAL ECG - EKG Impression: ATRIAL-VENTRICULAR DUAL-PACED RHYTHM Electronically Signed By: Braulio Combs 28-Sep-2017 05:50:49
[2017-09-28] MEDS ORDERED: INSULIN LISPRO 100 UNIT/ML SC ONE (05:48)
--- NOTE | 2017-09-28 05:54 | PDGENHP ---
History and Physical - Chief Complaint AMS - History of Present Illness 87 yo M w/ CAD, CHB s/p PPM, HTN and IDDM presents with altered mental status. Limited history was obtained via phone insurance sales producer from [place] speaking as patient is somnolent and unable to provide history after midazolam received for imaging studies. states patient has not taken his medications for 2 weeks, including insulin, because his glucometer was not working. This morning he was confused, incontinent, and not following commands so EMS was called. On arrival to ED blood glucose was found to be >500. denies other symptoms aside from fatigue, which has been present for several months. Patient is unable to contribute to history at this time. History Information - Allergies/Home Medication List Allergies/Adverse Reactions: No Known Allergies Allergy (Verified 09/28/17 04:19) Home Medications: Tamsulosin HCl [Flomax 0.4 MG (*)] 0.4 mg PO HS 05/06/13 [Last Taken 05/10/17] Clopidogrel Bisulfate [Plavix (*)] 75 mg PO DAILY 12/29/13 [Last Taken 05/10/17] Donepezil HCl [Aricept] 10 mg PO HS 12/29/13 [Last Taken 05/10/17] Herbals/Supplements -Info Only 1 ea PO DAILY 12/29/13 [Last Taken Unknown] Aspirin [Aspirin 325 mg (*)] 325 mg PO DAILY 11/19/15 [Last Taken 05/10/17] Mirabegron [Myrbetriq] 50 mg PO HS 11/19/15 [Last Taken 05/10/17] Escitalopram Oxalate [Lexapro 10 MG] 10 mg PO DAILY 10/02/16 [Last Taken ] Esomeprazole Magnesium [Nexium] 20 mg PO DAILY 10/02/16 [Last Taken 05/10/17] LORazepam [Ativan (*)] 0.5 mg PO DAILY 10/02/16 [Last Taken 05/10/17] Nitroglycerin [Nitrostat 0.4 mg (*)] 0.4 mg SL Q5M PRN 10/02/16 [Last Taken Unknown] Vit A/Vit C/Vit E/Zinc/Copper [Preservision Areds Tablet] 1 each PO DAILY [Last Taken 05/10/17] Furosemide [Lasix 40 MG (*)] 40 mg PO DAILY 05/11/17 [Last Taken Unknown] Insulin Aspart [novoLOG] 15 - 20 units SC DAILY 05/11/17 [Last Taken 05/10/17] Insulin Detemir [Levemir] 30 unit SC HS 05/11/17 [Last Taken 05/10/17] Insulin Detemir [Levemir] 40 unit SQ DAILY 05/11/17 [Last Taken 05/10/17] Losartan Potassium [Cozaar 50 mg (*)] 100 mg PO DAILY 05/11/17 [Last Taken 05/10] Metoprolol Succinate Xr [Toprol Xl 50 mg (*)] 50 mg PO DAILY 05/11/17 [Last Taken 05/10/17] Modafinil [Provigil 100 mg (*)] 100 mg PO DAILY 05/11/17 [Last Taken 05/10/17] Spironolactone [Aldactone 25 MG (*)] 25 mg PO DAILY 05/11/17 [Last Taken Unknown ] amLODIPine BESYLATE [Norvasc 5 mg (*)] 5 mg PO DAILY 05/11/17 [Last Taken ] I have personally reviewed and updated: family history, medical history - Past Medical History diabetes type 2, hypertension - Surgical History Reports: pacemaker/AICD - Family History Additional family history: Unable to provide - Social History Smoking Status: Former smoker Review of Systems Review of Systems: Unable to provide due to altered mental status Physical Exam Physical Exam: Temp Pulse Resp BP Pulse Ox 36.6 C 77 18 186/117 H 98 09/28/17 04:20 09/28/17 04:20 09/28/17 04:20 09/28/17 04:20 09/28/17 04:30 Constitutional: appears nourished, obese Eyes: PERRL, anicteric sclera Ears, Nose, Mouth, Throat: dry mucous membranes, hard of hearing Cardiovascular: regular rate and rhythym, no murmur, rub, or gallop Respiratory: no respiratory distress, clear to auscultation Gastrointestinal: normoactive bowel sounds, soft, non-tender abdomen Skin: warm, normal color Psychiatric: encephalopathic, poor insight Lab Data & Imaging Review 09/28/17 04:19 09/28/17 04:19 WBC 10.11 10^3/uL (3.80-9.50) H 09/28/17 04:19 RBC 4.80 10^6/uL (4.40-6.38) 09/28/17 04:19 Hgb 14.4 g/dL (13.7-17.5) 09/28/17 04:19 Hct 40.1 % (40.0-51.0) 09/28/17 04:19 MCV 83.5 fL (81.5-99.8) 09/28/17 04:19 MCH 30.0 pg (27.9-34.1) 09/28/17 04:19 MCHC 35.9 g/dL (32.4-36.7) 09/28/17 04:19 RDW 12.7 % (11.5-15.2) 09/28/17 04:19 Plt Count 251 10^3/uL (150-400) 09/28/17 04:19 MPV 9.7 fL (8.7-11.7) 09/28/17 04:19 Neut % (Auto) 83.1 % (39.3-74.2) H 09/28/17 04:19 Lymph % (Auto) 8.3 % (15.0-45.0) L 09/28/17 04:19 Potter % (Auto) 7.6 % (4.5-13.0) 09/28/17 04:19 Eos % (Auto) 0.1 % (0.6-7.6) L 09/28/17 04:19 Baso % (Auto) 0.4 % (0.3-1.7) 09/28/17 04:19 Nucleat RBC Rel Count 0.0 % (0.0-0.2) 09/28/17 04:19 Absolute Neuts (auto) 8.40 10^3/uL (1.70-6.50) H 09/28/17 04:19 Absolute Lymphs (auto) 0.84 10^3/uL (1.00-3.00) L 09/28/17 04:19 Absolute Monos (auto) 0.77 10^3/uL (0.30-0.80) 09/28/17 04:19 Absolute Eos (auto) 0.01 10^3/uL (0.03-0.40) L 09/28/17 04:19 Absolute Basos (auto) 0.04 10^3/uL (0.02-0.10) 09/28/17 04:19 Absolute Nucleated RBC 0.00 10^3/uL (0-0.01) 09/28/17 04:19 Immature Gran % 0.5 % (0.0-1.1) 09/28/17 04:19 Immature Gran # 0.05 10^3/uL (0.00-0.10) 09/28/17 04:19 Sodium 135 mEq/L (135-145) 09/28/17 04:19 Potassium 5.0 mEq/L (3.5-5.2) 09/28/17 04:19 Chloride 99 mEq/L (97-110) 09/28/17 04:19 Carbon Dioxide 20 mEq/l (22-31) L 09/28/17 04:19 Anion Gap 16 mEq/L (8-16) 09/28/17 04:19 BUN 23 mg/dL (7-23) 09/28/17 04:19 Creatinine 1.2 mg/dL (0.7-1.3) 09/28/17 04:19 Estimated GFR 57 09/28/17 04:19 Glucose 502 mg/dL (70-100) H* 09/28/17 04:19 Calcium 9.2 mg/dL (8.5-10.4) 09/28/17 04:19 Total Bilirubin 1.0 mg/dL (0.1-1.4) 09/28/17 04:19 AST 21 IU/L (17-59) 09/28/17 04:19 ALT 37 IU/L (21-72) 09/28/17 04:19 Alkaline Phosphatase 182 IU/L (38-126) H 09/28/17 04:19 Troponin I 0.071 ng/mL (0.000-0.034) H 09/28/17 04:19 Total Protein 6.5 g/dL (6.3-8.2) 09/28/17 04:19 Albumin 4.0 g/dL (3.5-5.0) 09/28/17 04:19 Lipase 39 IU/L (23-300) 09/28/17 04:19 Imaging Review: CT Head Prelim: stable atrophy since 06/02. nothing acute called at 5:10 am Visualized and Interpreted Chest x-ray results: Yes Chest X-Ray results: other (Posterior infiltrate on lateral view, pneumonia vs. atelectasis) Visualized and Interpreted EKG results: Yes EKG Interpretation: Positive for: other (A-V paced rhythm) Assessment & Plan Assessment: 87 yo M w/ CAD, CHB s/p PPM, HTN and IDDM presents with altered mental status and severe hyperglycemia. Plan: 1. IDDM c/b severe hyperglycemia - Secondary to insulin deficiency as patient has not taken his insulin for 2 weeks because his glucometer was broken. denies other symptoms of illness. Cannot rule out early DKA or HHS at this time noting significant AMS. Available medication list, which has not yet been verified by pharmacy, states insulin regimen of detemir 40/30 AM/PM + unclear dose of aspart. - S/p 1L IVF in ED, will give additional liter NS now - Check serum b-hydroxybutyrate and serum Osms, repeat BMP at 1200 - Insulin glargine 30u + lispro 10u now; will defer further dosing of basal insulin until home list is reconciled - SSI standard regimen ordered 2. AMS - I suspect this is 2/2 above, CTH in ED with no acute changes and laboratory work-up not suggestive of other etiologies at this time. - CXR awaiting radiology read - UA pending to complete basic infectious work-up 3. Indeterminate troponin - Serum troponin of .07 on admission with no chest pain to suggest ACS. I suspect demand ischemia but will trend enzymes. 4. CAD - S/p BRITTA to LAD; needs med reconciliation. 5. HTN - BP elevated while here, but this is in the setting of distress. Also, I doubt patient has been taking his medications. Would restart home regimen after med reconciliation. 6. Hx CHB - s/p PPM Diet - NPO pending improvement in mental status Code - Full Ppx - LMWH Dispo - Admit under observation status
[2017-09-28] MEDS: INSULIN GLARGINE 100 UNITS/ML UNIT SC SCH ×2 (08:23→08:30)
[2017-09-28] MEDS: ENOXAPARIN 40 MG/0.4 ML SYR SC SCH (08:23)
[2017-09-28] MEDS: INSULIN LISPRO 100 UNIT/ML SC SCH ×3 (09:23→18:09)
[2017-09-28] MEDS ORDERED: NS 500 ML IV ONE (13:00)
[2017-09-28] MEDS ORDERED: NITROGLYCERIN 0.4 MG BTL SL PRN (14:16)
[2017-09-28] MEDS ORDERED: D5W NS W/ 20 KCl/L 1,000 ML IV SCH (14:30)
--- NOTE | 2017-09-28 14:31 | HOSPPROG ---
Hospitalist Progress Note Assessment/Plan: 87 yo M w/ CAD, CHB s/p PPM, HTN and IDDM presents with altered mental status and severe hyperglycemia. A/P 1. IDDM c/b severe hyperglycemia - Secondary to insulin deficiency as patient has not taken his insulin for 2 weeks because his glucometer was broken. denies other symptoms of illness. -cont with long acting insulin -give additional IVF -SSI 2. AMS - likely due to dehydration and benzo given in the E.D. 3. Indeterminate troponin - Serum troponin of .07 on admission with no chest pain to suggest ACS. I suspect demand ischemia but will trend enzymes. 4. CAD - S/p BRITTA to LAD; needs med reconciliation. 5. HTN 6. Hx CHB - s/p PPM 7. Dehydration Plan -Give IVF now -Monitor for hypoglycemia -restart home meds once a list is available -Check mg -check TTE Diet - NPO pending improvement in mental status Code - Full Ppx - LMWH Dispo - Admit under observation status Subjective: still sedated. History obtained from via pharmacognosist Objective: Vital Signs Temp Pulse Resp BP Pulse Ox 36.8 C 80 15 162/75 H 97 09/28/17 11:23 09/28/17 11:23 09/28/17 11:23 09/28/17 11:23 09/28/17 11:23 Laboratory Results 09/28/17 12:00 09/27/17 09/28/17 09/29/17 05:59 05:59 05:59 Intake Total 850 Output Total 150 150 Balance -150 700 - Physical Exam Constitutional: no apparent distress Eyes: PERRL Ears, Nose, Mouth, Throat: dry mucous membranes Cardiovascular: regular rate and rhythym, No edema Respiratory: no respiratory distress Gastrointestinal: normoactive bowel sounds Skin: warm Neurologic: No AAOx3 Psychiatric: encephalopathic, No interacting appropriately Lymph, Heme, Immunologic: No petechiae ICD10 Worksheet Patient Problems: Problems Problem Status Onset Altered mental status Acute Hyperglycemia Acute Abdominal pain Acute CAD - Coronary arteriosclerosis Acute Chest wall pain Acute Knee injury Acute Pacemaker generator end of life Acute Syncope and collapse Acute Vertigo Acute
--- NOTE | 2017-09-28 16:07 | ASMTCMCOM ---
CM Note CM Note Notes: 09/28/2017 Case Management Note Pt admitted for hyperglycemia (500's) and AMS. Pt and speak Lebanese and require a protection engineer. Case Management d/c needs are to be determined. Case Management to follow. Date Signed: 09/28/2017 04:06 PM Electronically Signed By:Gayle Gomez RN
--- NOTE | 2017-09-28 16:30 | CPEKG ---
Heart Rate: 79 RR Interval: 759 P-R Interval: 116 QRSD Interval: 202 QT Interval: 508 QTC Interval: 583 P Mackinaw: 0 QRS [place]: -61 T Wave [place]: 127 EKG Severity - ABNORMAL ECG - EKG Impression: ATRIAL-VENTRICULAR DUAL-PACED RHYTHM Electronically Signed By: Rufino Diana 28-Sep-2017 20:16:40
--- NOTE | 2017-09-28 16:43 | ECHO ---
[email or web address] [address] [address] Main: [phone] Fax: Transthoracic Echocardiogram Name: JANNETTE MONTAÑO MR#: [id number] Study Date: 09/28/2017 Study Time: 03:15 PM Date of : 1930 Age: 87 year(s) Height: 170.2 cm (67 in.) Weight: 78.02 kg (172 lb.) BSA: 1.9 m2 Gender: Male Examination: Echo Indication: Indeterminate troponin, Pacer Image Quality: Contrast: Requested by: Tru Rust BP: 162 mmHg/75 mmHg Heart Rate: Rhythm: Indication: Indeterminate troponin, Pacer Procedure Staff Terrapin Fisher: Summer George RDCS Reading Physician: Jose Alfredo Hager MD Requesting Provider: Conclusions: Normal size left ventricle. Asymmetrical septal LV hypertrophy. The ejection fraction is estimated to be 45 to 50 %. There is paradoxic septal motion suggestive of bundle branch block, paced cardiac rhythm, or prior cardiac surgery. There is mild thickening of the mitral valve leaflets. Mild mitral valve regurgitation is present. Aortic valve is not well visualized. No aortic valve stenosis is present. There is no significant aortic valve regurgitation. Compared to the (08/23/16) study. There is no significant change. Measurements: Chambers Valvular Assessment AV/MV Valvular Assessment TV/PV Normal Normal Normal Name Value Range Name Value Range Name Value Range Ao Patt (MM): 3.2 cm (2.2 cm-3.7 AV meanP mmHg ( - ) TR Vmax: 2.40 mm/s ( - ) cm) MV E Vmax: 0.39 m/s ( - ) TR PGmax: 23 mmHg ( - ) LVDd (2D): 3.5 cm (4.2 cm-5.9 MV A Vmax: 0.90 m/s ( - ) syst. PAP: 28 mmHg ( - ) cm) MV E/A: 0.43 ( - ) EF Range: 45 to 50 % Continued Measurements: Chambers Valvular Assessment AV/MV Valvular Assessment TV/PV Name Value Name Value Name Value LADs: 4.3 cm MV E/E' Septal: 8.30 CVP (est.): 5 mmHg LADs Lon.5 cm MV E/E' Lateral: 9.10 LA Area: 16.8 cm2 Patient: JANNETTE MONTAÑO Study Date: 09/28/2017 Page 1 of 2 03:15 PM Findings: Left Ventricle: Normal size left ventricle. Asymmetrical septal LV hypertrophy. Mildly reduced systolic LV function. The ejection fraction is estimated to be 45 to 50 %. There is paradoxic septal motion suggestive of bundle branch block, paced cardiac rhythm, or prior cardiac surgery. Right Ventricle: Normal size right ventricle. Left Atrium: The left atrium is normal in size. Right Atrium: The right atrium is normal in size. Mitral Valve: There is mild thickening of the mitral valve leaflets. Mild mitral valve regurgitation is present. Aortic Valve: Aortic valve is not well visualized. No aortic valve stenosis is present. There is no significant aortic valve regurgitation. Tricuspid Valve: The tricuspid valve is normal in appearance and function. Mild tricuspid regurgitation is present. Pulmonic Valve: The pulmonic valve is normal in appearance and function. Aorta: The aorta is normal. Pericardium: No pericardial effusion. (No Signature Object) Patient: JANNETTE MONTAÑO Study Date: 09/28/2017 Page 2 of 2 03:15 PM [id number]
[2017-09-28] MEDS: PRESERVISION AREDS2 FORMULA EYE VIT 1 EACH PO SCH (17:21)
[2017-09-28] MEDS ORDERED: NON-FORMULARY NEW DRUG (Mirabegron [Myrbetriq] 50 MG) PO SCH (21:00)
[2017-09-28] MEDS ORDERED: NON-FORMULARY NEW DRUG (Vit A/Vit C/Vit E/Zinc/Copper [Preservision Areds Tablet] 1 EACH) PO SCH (21:00)
[2017-09-28] MEDS ORDERED: NON-FORMULARY NEW DRUG (Ranitidine Hcl [Zantac] 150 MG) PO SCH (21:00)
[2017-09-28] MEDS ORDERED: NON-FORMULARY NEW DRUG (Donepezil Hcl [Aricept] 10 MG) PO SCH (21:00)
[2017-09-28] MEDS: Mirabegron [Myrbetriq] 50 MG PO SCH (22:06)
[2017-09-28] MEDS: FAMOTIDINE 20 MG TAB PO SCH (22:06)
[2017-09-28] MEDS: TAMSULOSIN HCL 0.4 MG CAP PO SCH (22:06)
[2017-09-28] MEDS: DONEPEZIL HCL 5 MG TAB PO SCH (22:06)
[2017-09-29 04:01] LABS: PLATELET COUNT 207 10^3/uL (150-400)
[2017-09-29] MEDS ORDERED: LOSARTAN POTASSIUM 50 MG TAB PO SCH (09:00)
[2017-09-29] MEDS ORDERED: NON-FORMULARY NEW DRUG (Esomeprazole Mag Trihydrate [Nexium] 40 MG) PO SCH (09:00)
[2017-09-29] MEDS: ASPIRIN 325 MG TAB PO SCH (10:34)
[2017-09-29] MEDS: CLOPIDOGREL BISULFATE 75 MG TAB PO SCH (10:34)
[2017-09-29] MEDS: ENOXAPARIN 40 MG/0.4 ML SYR SC SCH (10:34)
[2017-09-29] MEDS: CHOLECALCIFEROL VIT D3 1,000 UNITS TAB PO SCH (10:34)
[2017-09-29] MEDS: METOPROLOL SUCCINATE XR 100 MG TAB PO SCH (10:35)
[2017-09-29] MEDS: FAMOTIDINE 20 MG TAB PO SCH ×2 (10:35→20:18)
[2017-09-29] MEDS: MULTIVITAMINS 1 EACH TAB PO SCH (10:35)
[2017-09-29] MEDS: ESCITALOPRAM OXALATE 10 MG TAB PO SCH (10:35)
[2017-09-29] MEDS: LOSARTAN POTASSIUM 50 MG TAB PO SCH (10:35)
[2017-09-29] MEDS: POLYETHYLENE GLYCOL 3350 17 GM PKT PO SCH (10:36)
[2017-09-29] MEDS: ROSUVASTATIN CALCIUM 10 MG TAB PO SCH (10:36)
[2017-09-29] MEDS: PANTOPRAZOLE SODIUM 40 MG TAB PO SCH (10:36)
[2017-09-29] MEDS: INSULIN GLARGINE 100 UNITS/ML UNIT SC SCH (10:45)
[2017-09-29] MEDS: INSULIN LISPRO 100 UNIT/ML SC SCH ×3 (11:08→17:53)
[2017-09-29] MEDS: PRESERVISION AREDS2 FORMULA EYE VIT 1 EACH PO SCH ×2 (11:08→18:20)
--- NOTE | 2017-09-29 14:59 | HOSPPROG ---
Hospitalist Progress Note Assessment/Plan: 87 yo M w/ CAD, CHB s/p PPM, HTN and IDDM presents with altered mental status and severe hyperglycemia. A/P 1. IDDM c/b severe hyperglycemia - Secondary to insulin deficiency as patient has not taken his insulin for 2 weeks because his glucometer was broken. -much improved with long acting insulin -mild hypoglycemia resolved -stop IVF -cont with current regimen 2. AMS - likely due to dehydration and benzo given in the E.D. -resolved 3. Indeterminate troponin -no e/o of ACS -TTE unremarkable 4. CAD - S/p BRITTA to LAD; needs med reconciliation. 5. HTN: stable on home meds 6. Hx CHB - s/p PPM 7. Dehydration, resolving Plan -monitor overnight, make inpatient -trial off IVF -Monitor for hypoglycemia -home meds -start diet Code - Full Ppx - LMWH Dispo - Inpatient, likely d/c tomorrow Subjective: feels better. alert and awake Objective: Vital Signs Temp Pulse Resp BP Pulse Ox 36.4 C 72 16 167/83 H 96 09/29/17 14:50 09/29/17 14:50 09/29/17 14:50 09/29/17 14:50 09/29/17 14:50 Laboratory Results 09/29/17 03:43 09/29/17 03:43 09/28/17 09/29/17 09/30/17 05:59 05:59 05:59 Intake Total 2918 800 Output Total 150 850 100 Balance -150 2068 700 - Physical Exam Constitutional: no apparent distress Eyes: PERRL, EOMI Ears, Nose, Mouth, Throat: moist mucous membranes, hearing normal Cardiovascular: regular rate and rhythym, No edema Respiratory: no respiratory distress, no rales or rhonchi, clear to auscultation Gastrointestinal: normoactive bowel sounds Skin: warm Neurologic: No AAOx3 Psychiatric: interacting appropriately, not anxious, No encephalopathic Lymph, Heme, Immunologic: petechiae ICD10 Worksheet Patient Problems: Problems Problem Status Onset Altered mental status Acute Hyperglycemia Acute Abdominal pain Acute CAD - Coronary arteriosclerosis Acute Chest wall pain Acute Knee injury Acute Pacemaker generator end of life Acute Syncope and collapse Acute Vertigo Acute
--- NOTE | 2017-09-29 15:56 | ASMTCMCOM ---
CM Note CM Note Notes: CM spoke w/ Dr. Rust regarding d/c POC. CM met w/ pt, and son for dispo planning. PT is recommending HC at this time. CM spoke w/ ALMAS Singh. Samantha had some concerns about pt discharging home d/c HC. Samantha would like pt to go to a higher level of care such as SNF. CM discussed this w/ pts son. Pts son reports that pt has been to [facility] in the past and did not have a good experience. CM provided pts son w/ list of HC agencies. CM to check back in w/ son tomorrow. Son would like to review HC agency list. Son will be in town for 10 days. Plan: TBD; most likely HC Date Signed: 09/29/2017 03:55 PM Electronically Signed By:DODIE Lockhart
[2017-09-29] MEDS: TAMSULOSIN HCL 0.4 MG CAP PO SCH (20:18)
[2017-09-29] MEDS: Mirabegron [Myrbetriq] 50 MG PO SCH (20:18)
[2017-09-29] MEDS: DONEPEZIL HCL 5 MG TAB PO SCH (20:18)
[2017-09-29 23:39] VITALS: O2SAT 95
--- NOTE | 2017-09-30 06:08 | PDMN ---
Medical Necessity Medical necessity: Change to IP, as of 09/29/17, per MD; los >2 mn for ongoing management of severe hyperglycemia & dehydration w/altered mental status secondary to insulin deficiency as pt has not taken his insulin for 2 weeks; admit for further monitoring, med management & therapies; comorbid advanced age , CAD, insulin dependent diabetes; per progress note & order 09/29/17
[2017-09-30 07:57] VITALS: BP 155/87; PULSE 70; RESP 15; TEMP 98.5
[2017-09-30] MEDS: INSULIN LISPRO 100 UNIT/ML SC SCH ×2 (08:04→14:08)
[2017-09-30] MEDS: PRESERVISION AREDS2 FORMULA EYE VIT 1 EACH PO SCH (08:34)
[2017-09-30] MEDS: ASPIRIN 325 MG TAB PO SCH (08:34)
[2017-09-30] MEDS: CHOLECALCIFEROL VIT D3 1,000 UNITS TAB PO SCH (08:35)
[2017-09-30] MEDS: CLOPIDOGREL BISULFATE 75 MG TAB PO SCH (08:35)
[2017-09-30] MEDS: FAMOTIDINE 20 MG TAB PO SCH (08:35)
[2017-09-30] MEDS: ESCITALOPRAM OXALATE 10 MG TAB PO SCH (08:35)
[2017-09-30] MEDS: ENOXAPARIN 40 MG/0.4 ML SYR SC SCH (08:35)
[2017-09-30] MEDS: METOPROLOL SUCCINATE XR 100 MG TAB PO SCH (08:35)
[2017-09-30] MEDS: MULTIVITAMINS 1 EACH TAB PO SCH (08:36)
[2017-09-30] MEDS: PANTOPRAZOLE SODIUM 40 MG TAB PO SCH (08:36)
[2017-09-30] MEDS: POLYETHYLENE GLYCOL 3350 17 GM PKT PO SCH (08:36)
[2017-09-30] MEDS: ROSUVASTATIN CALCIUM 10 MG TAB PO SCH (08:36)
[2017-09-30] MEDS: LOSARTAN POTASSIUM 50 MG TAB PO SCH (08:37)
[2017-09-30] MEDS: INSULIN GLARGINE 100 UNITS/ML UNIT SC SCH (10:41)
--- NOTE | 2017-09-30 11:56 | PDIAF ---
- Diagnosis Diagnosis: dehydration, encephalopathy Code Status: Full Code - Medication Management Discharge Medications: Medications to Continue on Transfer Tamsulosin HCl [Flomax 0.4 MG (*)] 0.4 mg PO HS 05/06/13 [Last Taken 05/10/17] Donepezil HCl [Aricept] 10 mg PO HS 12/29/13 [Last Taken 05/10/17] Herbals/Supplements -Info Only 1 ea PO DAILY 12/29/13 [Last Taken Unknown] Aspirin [Aspirin 325 mg (*)] 325 mg PO DAILY 11/19/15 [Last Taken 05/10/17] Mirabegron [Myrbetriq] 50 mg PO HS 11/19/15 [Last Taken 05/10/17] Escitalopram Oxalate [Lexapro 10 MG] 10 mg PO DAILY 10/02/16 [Last Taken ] Nitroglycerin [Nitrostat 0.4 mg (*)] 0.4 mg SL Q5M PRN 10/02/16 [Last Taken Unknown] Vit A/Vit C/Vit E/Zinc/Copper [Preservision Areds Tablet] 1 each PO BID [Last Taken 05/10/17] Losartan Potassium [Cozaar 50 mg (*)] 100 mg PO DAILY 05/11/17 [Last Taken 05/10] Acetaminophen [Tylenol ES 500 mg (*)] 1,000 mg PO TID PRN 09/28/17 [Last Taken Unknown] Cholecalciferol Vit D3 [Vitamin D3 (*)] 1,000 units PO DAILY 09/28/17 [Last Taken Unknown] Clopidogrel Bisulfate [Plavix (*)] 75 mg PO DAILY 09/28/17 [Last Taken Unknown] Esomeprazole Mag Trihydrate [Nexium] 40 mg PO DAILY 09/28/17 [Last Taken Unknown ] Glucosamine Sulfate [Glucosamine Sulfate 500 MG (*)] 500 mg PO DAILY 09/28/17 [ Last Taken Unknown] Metoprolol Succinate Xr [Toprol Xl 100 mg (*)] 100 mg PO DAILY 09/28/17 [Last Taken Unknown] Multivitamins [Multivitamin (*)] 1 each PO DAILY 09/28/17 [Last Taken Unknown] Polyethylene Glycol 3350 [Miralax 17 gm (*)] 17 gm PO DAILY 03/14/18 [Last Taken Unknown] Ranitidine HCl [Zantac] 150 mg PO BID 09/28/17 [Last Taken Unknown] Rosuvastatin Calcium [Crestor] 10 mg PO DAILY 09/28/17 [Last Taken Unknown] Sennosides/Docusate Sodium [Senna-S Tablet] 1 - 2 each PO BID 09/28/17 [Last Taken Unknown] Insulin Glargine [Lantus Syringe] 30 units SC DAILY #30 unit 09/30/17 [Last Taken Unknown] Discharge Medications: Refer to the Discharge Home Medication list for PRN reason. - Orders Services needed: Home Care, Registered Nurse, Physical Therapy, Occupational Therapy Home Care Face to Face: I certify that this patient was under my care and that I had the required [id number] encounter meeting the encounter requirements on the discharge day. My findings support the fact that the patient is homebound as defined in Home Care Face to Face Continued: CMS Chapter 7 Medicare Benefits Manual 30.1.1 , The condition of the patient is such that there exists a normal inability to leave home and consequently, leaving home would require a considerable and taxing effort. Diet Recommendation: ADA 1800 consistent carb Diet Texture: Regular Texture Diet - Follow Up Care Current Providers and Referrals: Patient,NotPresent [Unknown] - As per Instructions
--- NOTE | 2017-09-30 11:59 | PDDCSUM ---
Discharge Summary Discharge Summary: 87 yo M w/ CAD, CHB s/p PPM, HTN and IDDM admited with altered mental status, dehydration, and severe hyperglycemia. Admitted inpatient. He had stoopped taking mediations x 2 weeks. Started on IVF and provided with adequate glucose management. Appropriate home meds restarted. At the time of discharge he is back to baseline. See below for details per problem list. Meds: continues all home meds except stopped Furosemide and Lorazepam and decreased long acting insulin. A/P 1. IDDM c/b severe hyperglycemia - Secondary to insulin deficiency as patient has not taken his insulin for 2 weeks because his glucometer was broken. 2. AMS - likely due to dehydration and benzo given in the E.D. -resolved 3. Indeterminate troponin -no e/o of ACS -TTE unremarkable 4. CAD - S/p BRITTA to LAD; needs med reconciliation. 5. HTN: stable on home meds 6. Hx CHB - s/p PPM 7. Dehydration, resolved Exam: NAD ALERT, AWAKE MMM RRR CTA B S/NT/ND NO EDEMA F/U: WITH PCP NEXT WEEK TOTAL TIME SPENT ON D/C IS 37 MINS
--- NOTE | 2017-09-30 12:08 | ASMTCMCOM ---
CM Note CM Note Notes: Chart reviewed. Discussed POC with Dr. Rust. Patient to go home with [facility]. Spoke with son who will be in town for the next week and then he will return to [place] for the summer. Plan home with home health PT. CM available should other needs arise. Date Signed: 09/30/2017 12:07 PM Electronically Signed By:Erika Lopez RN
--- NOTE | 2017-09-30 16:03 | ASDISCHSUM ---
Discharge Information Plan Status:Home with Home Health Medically Cleared to Leave:09/30/2017 Discharge Date:09/30/2017 03:00 PM CM D/C Disposition:Home Health Service ADT D/C Disposition:[id number] Projected Discharge Date:10/01/2017 11:00 AM Transportation at D/C: Discharge Delay Reason: Follow-Up Date:10/01/2017 11:00 AM Discharge Slot: Final Diagnosis: Placement Information Referral Type:*Home Health Care Services Referral ID:[facility]-[id number] Provider Name:[facility] Address 1:[address] Address 2: City:[place] Selection Factors: State:[place] Patient Contact Information Contact Name:REBECCAKAYLAN Relationship: Address:[address] [place] [address] Work Phone: City:[place] Alternate Phone: State/Zip Code:[place] [address] Email: Financial Information Financial Class:Medicare Primary Plan Desc:MEDICARE INPATIENT Primary Plan Number:[id number] Secondary Plan Desc:GEOFFREY Secondary Plan Number:[id number] Assessment Information [facility] CM Progress Note CM Note CM Note Notes: 09/28/2017 Case Management Note Pt admitted for hyperglycemia (500's) and AMS. Pt and speak [place] and require a healthcare advisory services manager. Case Management d/c needs are to be determined. Case Management to follow. Date Signed: 09/28/2017 04:06 PM Electronically Signed By:Gayle Gomez RN [facility] CM Progress Note CM Note CM Note Notes: LAURA spoke w/ Dr. Rust regarding d/c POC. CM met w/ pt, and son for dispo planning. PT is recommending HC at this time. CM spoke w/ ALMAS Singh. Samantha had some concerns about pt discharging home d/c HC. Samantha would like pt to go to a higher level of care such as SNF. CM discussed this w/ pts son. Pts son reports that pt has been to [facility] in the past and did not have a good experience. CM provided pts son w/ list of HC agencies. CM to check back in w/ son tomorrow. Son would like to review HC agency list. Son will be in town for 10 days. Plan: TBD; most likely HC Date Signed: 09/29/2017 03:55 PM Electronically Signed By:DODIE Lockhart [facility] CM Progress Note CM Note CM Note Notes: Chart reviewed. Discussed POC with Dr. Rust. Patient to go home with [facility]. Spoke with son who will be in town for the next week and then he will return to [place] for the summer. Plan home with home health PT. CM available should other needs arise. Date Signed: 09/30/2017 12:07 PM Electronically Signed By:Erika Lopez RN Intervention Information Intervention Type:*Incorrect Registration Date of Service:09/29/2017 09:30 AM Patient Type:Observation Staff Member:ALMAS Patel Courtney Hours: Discipline: Severity: Comment: Intervention Type:*GREEN-Signed Date of Service:09/29/2017 11:54 AM Patient Type:Observation Staff Member:Luz Maria Maciel Hours: Discipline: Severity: Comment:
== END 2017-09-30 15:00 | disposition home health service (06) | DRG 639 ==
LOC: EDUNIT# → INTOOBSV 05:23 → OBSVTOIN 05:23 → F2W 05:55 → OBSVTOIN 09-29 14:55
PROVIDERS: ADMIT Student in an Organized Health Care Education/Training Program; ATTEND Family Medicine
DX: E11.65 Type 2 diabetes mellitus with hyperglycemia (principal); E86.0 Dehydration; Z91.14 Patient's other noncompliance with medication regimen; T38.3X6A Underdosing of insulin and oral hypoglycemic [antidiabetic] drugs, initial encounter; I25.10 Atherosclerotic heart disease of native coronary artery without angina pectoris; I11.0 Hypertensive heart disease with heart failure; I50.9 Heart failure, unspecified; Z95.810 Presence of automatic (implantable) cardiac defibrillator; Z99.81 Dependence on supplemental oxygen; Z87.891 Personal history of nicotine dependence; Z85.72 Personal history of non-Hodgkin lymphomas; Z92.3 Personal history of irradiation; Z95.5 Presence of coronary angioplasty implant and graft
CPT/HCPCS: 92610-GN; 96374; 97116-GP; 97161-GP; G0378; G8978-GP-CI; G8979-GP-CI; G8996-GN-CI; G8997-GN-CI; G8998-GN-CI; J1650; J1815; J2250

== ENCOUNTER → 2017-11-02 | Outpatient (CLI) | payer OTHER | LOC: BMCIMAGING 15:32 | PROVIDERS: ATTEND Internal Medicine | DX: R07.81 Pleurodynia (principal) ==

== ENCOUNTER → 2018-02-07 | Outpatient (CLI) | payer OTHER | PROVIDERS: ATTEND Otolaryngology | DX: R13.10 Dysphagia, unspecified (principal); K21.9 Gastro-esophageal reflux disease without esophagitis; K44.9 Diaphragmatic hernia without obstruction or gangrene | CPT/HCPCS: 74220; 74230; 92611; G8996; G8997; G8998 ==

== ENCOUNTER 2018-07-08 18:37 | Inpatient (IN) | payer OTHER ==
[2018-07-08] MEDS ORDERED: NITROGLYCERIN/D5W 50 MG/250 ML BOTTLE IV ONE (18:56)
[2018-07-08] MEDS ORDERED: NITROGLYCERIN/DEXTROSE 250 ML IV ONE (18:58)
--- NOTE | 2018-07-08 18:58 | EDPHY ---
H & P Time Seen by Provider: 07/08/18 18:43 HPI/ROS: HPI Shortness of breath. 88-year-old male by private vehicle with and son. The patient is very hard of hearing. His Palestinian is limited. He does have a history of coronary artery disease, a pacemaker AICD as well as hypertension. He has been complaining to his family that he has been feeling more short of breath since yesterday. Significantly more so over the last 2 hr. Denies chest pain. He has not had a cough. ROS: Constitutional: No fever, no chills. No weakness. Eyes: No discharge. No changes in vision. ENT: No sore throat. No nasal congestion or rhinorrhea. Respiratory: No cough. As above. Cardiac: No chest pain, no palpitations. Gastrointestinal: No abdominal pain, no vomiting, no diarrhea. Genitourinary: No hematuria. No dysuria or increased frequency with urination. Musculoskeletal: No back pain. No neck pain. No myalgias or arthralgias. Skin: No rashes. Neurological: No headache. No focal weakness or altered sensation. Past medical history: Type 2 diabetes. Sleep apnea. Uses CPAP at night. As above. Social history: Nonsmoker. Drinks alcohol occasionally. Here with and son. He does not have a living will. No POA officially. Physical Exam: General Appearance: Alert, dyspneic and in mild distress. Large man. This patient is responding to questions appropriately and in full sentences. This patient appears well-hydrated and well-nourished. Eyes: Pupils equal and round no pallor or injection. No lid edema, erythema or injection. Respiratory: Retractions present, lung sounds are distant with shallow air movement bilaterally. No wheezing appreciated. Tachypnea at 25. Cardiovascular: Regular rate and rhythm. No murmur appreciated. Gastrointestinal: Abdomen is soft and nontender, no masses, bowel sounds normal. No focal tenderness at McBurney's point. No Dash sign. Neurological: Motor sensory function is grossly intact. Cranial nerves are normal. Gait is normal. Skin: Warm and dry, no rashes. Musculoskeletal: Neck is supple and nontender. Extremities are symmetrical. All joints range without pain or impingement. Psychiatric: No agitation. No depression. Database: EKG: EKG time is 6:47 p.m.; EKG shows a atrial ventricular dual paced rhythm with a left bundle branch pattern, ventricular rate average of 77. Appropriate discordance noted. Interpreted by me. Imaging: Chest x-ray AP portable; CHF. No focal infiltrate. No pneumothorax. Interpreted by me. Procedures: Emergency department course: IV placed. Patient placed on a compliance monitor. EKG obtained and reviewed by myself. Shortly after the patient's arrival he was started on CPAP initial level of 8. He is tolerating this well. Will be started on a nitroglycerin drip to reduce preload at 150 micrograms/minute initially. This will be titrated based on improvement and blood pressures. 7:00 p.m., nitroglycerin drip was run initially at 150 mcg for per minute for about 10 min. Blood pressure was rechecked every 2 min. Systolic blood pressure dropped to a low 105. He tolerated this medication well. He appeared much less labored in his breathing. Gave us the thumbs-up. Nitroglycerin drip then decreased to 60 micrograms/minute. 7:20 p.m., patient re-evaluated, currently blood pressure 133/81. Pulse oximetry is dip slightly to 91%. Breathing to be a bit more late bird. Nitroglycerin drip increased to 100 micrograms/minute. CPAP increased from 8-10 , oxygen on CPAP increased from 40% to 60%. 7:40 p.m., patient re-evaluated, pulse oximetry currently 94%. Blood pressure 116/70. The patient appears comfortable. He is not tachypneic at this time. Nitroglycerin drip decreased to 50 micrograms/minute. Hospitalist paged for admission. 7:50 p.m., spoke to on-call hospitalist, Dr. Campbell, case discussed in detail with her. The patient will receive 40 mg of IV Lasix in the emergency department. She accepts this patient for admission to the ICU. D-dimer was elevated at 0.79. I feel the patient is to fragile to go to the CT suite at this time. CT angiogram of chest to evaluate for possible PE which I feel is unlikely deferred to the hospitalist service. Patient was admitted to the ICU in stable and improved condition. Differential Diagnosis: The differential diagnosis on this patient includes but is not limited to CHF exacerbation, reactive airway disease, pneumonia. This represents a partial list of diagnoses considered. These considerations are based on history, physical exam, past history, reassessment and diagnostic testing. Smoking Status: Former smoker Constitutional: Initial Vital Signs Temperature (C) 36.7 C 07/08/18 18:38 Heart Rate 91 07/08/18 18:38 Respiratory Rate 24 H 07/08/18 18:38 Blood Pressure 174/97 H 07/08/18 18:38 O2 Sat (%) 81 L 07/08/18 18:38 O2 Delivery Mode CPAP O2 (L/minute) 6 Allergies/Adverse Reactions: No Known Allergies Allergy (Verified 09/28/17 04:19) Home Medications: Medication Instructions Recorded Tamsulosin HCl [Flomax 0.4 MG (*)] 0.4 mg PO HS 05/06/13 Donepezil HCl [Aricept] 10 mg PO HS 12/29/13 Herbals/Supplements -Info Only 1 ea PO DAILY 12/29/13 Aspirin [Aspirin 325 mg (*)] 325 mg PO DAILY 11/19/15 Mirabegron [Myrbetriq] 50 mg PO HS 11/19/15 Escitalopram Oxalate [Lexapro 10 10 mg PO DAILY 10/02/16 MG] Nitroglycerin [Nitrostat 0.4 mg 0.4 mg SL Q5M PRN 10/02/16 (*)] Vit A/Vit C/Vit E/Zinc/Copper 1 each PO BID 10/02/16 [Preservision Areds Tablet] Losartan Potassium [Cozaar 50 mg 100 mg PO DAILY 05/11/17 (*)] Acetaminophen [Tylenol ES 500 mg 1,000 mg PO TID PRN 09/28/17 (*)] Cholecalciferol Vit D3 [Vitamin D3 1,000 units PO DAILY 09/28/17 (*)] Clopidogrel Bisulfate [Plavix (*)] 75 mg PO DAILY 09/28/17 Esomeprazole Mag Trihydrate 40 mg PO DAILY 09/28/17 [Nexium] Glucosamine Sulfate [Glucosamine 500 mg PO DAILY 09/28/17 Sulfate 500 MG (*)] Metoprolol Succinate Xr [Toprol Xl 100 mg PO DAILY 09/28/17 100 mg (*)] Multivitamins [Multivitamin (*)] 1 each PO DAILY 09/28/17 Polyethylene Glycol 3350 [Miralax 17 gm PO DAILY 09/28/17 17 gm (*)] Ranitidine HCl [Zantac] 150 mg PO BID 09/28/17 Rosuvastatin Calcium [Crestor] 10 mg PO DAILY 09/28/17 Sennosides/Docusate Sodium 1 - 2 each PO BID 09/28/17 [Senna-S Tablet] Insulin Glargine [Lantus Syringe] 30 units SC DAILY #30 unit 09/30/17 Medical Decision Making Critical Care Time: I spent a total of 42 minutes of critical care time in obtaining history, performing a physical exam, bedside monitoring of interventions, collecting and interpreting tests and discussion with consultants but not including time spent performing procedures. - Data Points Laboratory Results: Laboratory Results 07/08/18 18:32 07/08/18 18:32 07/08/18 07/08/18 07/08/18 18:55 18:32 18:32 WBC RBC Hgb Hct MCV MCH MCHC RDW Plt Count MPV Neut % (Auto) Lymph % (Auto) [place] % (Auto) Eos % (Auto) Baso % (Auto) Nucleat RBC Rel Count Absolute Neuts (auto) Absolute Lymphs (auto) Absolute Monos (auto) Absolute Eos (auto) Absolute Basos (auto) Absolute Nucleated RBC Immature Gran % Immature Gran # PT 14.4 SEC SEC (12.0-15.0) INR 1.10 (0.83-1.16) APTT 31.5 SEC SEC (23.0-38.0) D-Dimer 0.79 ug/mLFEU H ug/mLFEU (0.00-0.50) Sodium 136 mEq/L mEq/L (135-145) Potassium 4.4 mEq/L mEq/L (3.5-5.2) Chloride 104 mEq/L mEq/L (97-110) Carbon Dioxide 23 mEq/l mEq/l (22-31) Anion Gap 9 mEq/L mEq/L (6-14) BUN 28 mg/dL H mg/dL (7-23) Creatinine 1.2 mg/dL mg/dL (0.7-1.3) Estimated GFR 57 Glucose 307 mg/dL H mg/dL (70-100) Calcium 9.2 mg/dL mg/dL (8.5-10.4) POC Troponin I 0.05 ng/mL ng/mL (0.00-0.08) NT-Pro-B Natriuret Pep 5200 pg/mL H pg/mL (0-450) 07/08/18 18:32 WBC 9.30 10^3/uL 10^3/uL (3.80-9.50) RBC 4.48 10^6/uL 10^6/uL (4.40-6.38) Hgb 13.9 g/dL g/dL (13.7-17.5) Hct 40.4 % % (40.0-51.0) MCV 90.2 fL fL (81.5-99.8) MCH 31.0 pg pg (27.9-34.1) MCHC 34.4 g/dL g/dL (32.4-36.7) RDW 12.5 % % (11.5-15.2) Plt Count 253 10^3/uL 10^3/uL (150-400) MPV 10.2 fL fL (8.7-11.7) Neut % (Auto) 69.7 % % (39.3-74.2) Lymph % (Auto) 18.2 % % (15.0-45.0) [place] % (Auto) 9.4 % % (4.5-13.0) Eos % (Auto) 1.4 % % (0.6-7.6) Baso % (Auto) 0.9 % % (0.3-1.7) Nucleat RBC Rel Count 0.0 % % (0.0-0.2) Absolute Neuts (auto) 6.49 10^3/uL 10^3/uL (1.70-6.50) Absolute Lymphs (auto) 1.69 10^3/uL 10^3/uL (1.00-3.00) Absolute Monos (auto) 0.87 10^3/uL H 10^3/uL (0.30-0.80) Absolute Eos (auto) 0.13 10^3/uL 10^3/uL (0.03-0.40) Absolute Basos (auto) 0.08 10^3/uL 10^3/uL (0.02-0.10) Absolute Nucleated RBC 0.00 10^3/uL 10^3/uL (0-0.01) Immature Gran % 0.4 % % (0.0-1.1) Immature Gran # 0.04 10^3/uL 10^3/uL (0.00-0.10) PT INR APTT D-Dimer Sodium Potassium Chloride Carbon Dioxide Anion Gap BUN Creatinine Estimated GFR Glucose Calcium POC Troponin I NT-Pro-B Natriuret Pep Medications Given: Discontinued Medications Nitroglycerin/Dextrose (Nitroglycerin 200 Mcg/Ml (Premix)) 250 mls @ 0 mls/hr IV EDNOW ONE; Titrate PRN Reason: Protocol Stop: 07/08/18 18:59 Last Admin: 07/08/18 19:01 Dose: 250 mls Point of Care Test Results: Chemistry 07/08/18 18:55 POC Troponin I 0.05 ng/mL ng/mL (0.00-0.08) Departure - Departure Disposition: [facility] Inpatient Acute Clinical Impression: CHF exacerbation, Hypoxia Referrals: NONE *PRIMARY CARE P,. [Primary Care Provider] - As per Instructions
[2018-07-08 19:07] LABS: PLATELET COUNT 253 10^3/uL (150-400)
[2018-07-08 19:15] LABS: INR 1.1 (0.83-1.16); PROTIME(PATIENT) 14.4 SEC (12.0-15.0)
[2018-07-08] MEDS ORDERED: FUROSEMIDE 40 MG/4 ML VIAL IVP ONE (19:49)
--- NOTE | 2018-07-08 21:15 | CPEKG ---
Test Reason : OPEN Blood Pressure : / mmHG Vent. Rate : 077 BPM Atrial Rate : 077 BPM P-R Int : 155 ms QRS Dur : 191 ms QT Int : 496 ms P-R-T Axes : -14 -56 122 degrees QTc Int : 562 ms Atrial-ventricular dual-paced complexes Confirmed by Domi Boland ([id number]) on 07/08/2018 9:14:48 PM Referred By: Confirmed By:Domi Boland
--- NOTE | 2018-07-08 21:27 | PDGENHP ---
History and Physical History and Physical: Chief complaint: Shortness of breath History of present illness: The patient is an 88-year-old Azerbaijani-speaking male with PMH CAD, pacemaker, AICD who p/w progressively worsening shortness of breath that began 2 days ago. It is a/w a nonproductive cough. Pt denies recent fevers/chills or URI symptoms. He has not had any recent changes in diet or lifestyle. He admits to some R sided chest/flank pain but has no other symptoms. In the ED, pt has in respiratory distress and he improved on CPAP. He was found to have a high BNP and was started on NTG drip and given a dose of Lasix 40mg. He had a mildly elevated D-dimer, but was not considered stable for CTA of chest. He was transferred to the ICU where he is now breathing more comfortably on CPAP. Most of the history was obtained from the chart and from the family at bedside. Past medical history: Type 2 diabetes on insulin, ZACK on CPAP/O2, hypertension , SSS s/p pacer, HLD, CAD s/p stent, pulm nodules Past surgical history: Permanent pacemaker/AICD placement. Medications: Acetaminophen, aspirin, vitamin D3, clopidogrel, donepezil, escitalopram, esomeprazole, glucosamine, Lantus, losartan, metoprolol succinate , Myrbetriq, multivitamins, nitroglycerin, polyethylene glycol, ranitidine, rosuvastatin, Senokot, tamsulosin, PreserVision. Allergies: No known allergies. Social history: Former smoker. No drug use. Occasional alcohol use. , lives with and son. Family history: mother - cancer. Father - stroke. Review of systems: 10 point review of systems was conducted and is negative except per HPI Physical exam: Vitals: Reviewed General: The patient is an elderly male who is alert and in no acute distress. HEENT: normocephalic, extraocular movements intact, conjunctivae clear. Nares and oral mucosa pink and moist. CPAP mask noted. Neck: trachea midline, no visible masses, no external lesions. CV: +S1/S2, reg rate and rhythm. No murmurs/rubs/gallops. Resp: unlabored breathing, lungs clear to auscultation w/o rales, rhonchi, or wheezing. Abd: soft and nondistended, bowel sounds present. Nontender to palpation throughout. Musculoskeletal: Normal muscle tone and bulk. Neuro: cranial nerves II - XII grossly intact. Intact gross motor and sensory function. Psych: appropriate mood/affect. Skin: No rash or ecchymoses. : no suprapubic tenderness. Heme/lymph: No peripheral edema. Labs: Hemoglobin 13.9, WBC 9.3, platelets 253. D-dimer 0.79. INR 1.1. Sodium 136 potassium 4.4 chloride 104 CO2 23 BUN 28 creatinine 1.2 GFR 57 glucose 307, 288. Troponin I 0.05. ProBNP 5200. Resp panel - negative. Other Data: One-view chest x-ray: Personally interpreted but images poor-moderate bibasilar infiltrates suggestive of pulmonary edema/CHF. Bilateral pneumonia less likely. EKG: Atrial and ventricular paced complexes. Rate 77. Echo (outside record, September 2017) - LVEF 45-50%, mild MR/TR. Impression and plan: Acute on chronic respiratory failure, on CPAP Acute CHF exacerbation, unknown type -Hx mild systolic CHF CAD, s/p stent SSS, s/p PPM/ICD H/o pulm nodules ZACK on CPAP QHS Elevated D-dimer -DDx etiology - infection, VTE Obesity -Continue NTG gtt tonight. -continue CPAP -SVNs. -Lasix given today. Consider to continue diuresing in AM. -Repeat CXR in AM - get 2 view as earlier XR was not a good image. -Check procalcitonin. -Check ABG to eval A-a gradient. -Check CTA chest if procalcitonin is negative and/or A-a gradient greatly elevated. -Trend trops. -Check Echo. -Admit to ICU for close resp monitoring. -Inpatient status for > 2 midnight stay. VTE ppx - Lovenox. Code Status - Full.
[2018-07-08] MEDS ORDERED: D50W 25 GM/50 ML VIAL IVP PRN (21:49)
[2018-07-08] MEDS ORDERED: NITROGLYCERIN/DEXTROSE 250 ML IV SCH (22:00)
[2018-07-09] MEDS: IPRATROPIUM/ALBUTEROL 3 ML DEYVIAL IH SCH ×3 (02:16→12:17)
[2018-07-09 05:03] LABS: PLATELET COUNT 217 10^3/uL (150-400)
--- NOTE | 2018-07-09 07:16 | PDMN ---
Medical Necessity Medical necessity: Pt meets INPT criteria per MD as of 07/08/18 and [facility] [place] M-190 Heart Failure (est. LOS >2 MN for eval/mgmt of acute CHF exacerbation, acute on chronic respiratory failure, requiring ICU monitoring, CPAP, NTG drip, IV lasix ; comorbid CAD, SSS with PPM/AICD, DM, ZACK, htn).
[2018-07-09] MEDS: INSULIN LISPRO 100 UNIT/ML SC SCH ×3 (08:32→18:12)
[2018-07-09] MEDS: ENOXAPARIN 40 MG/0.4 ML SYR SC SCH (08:32)
[2018-07-09] MEDS: ACETAMINOPHEN 325 MG TAB PO PRN (08:43)
[2018-07-09] MEDS ORDERED: FAMOTIDINE 20 MG TAB PO SCH (09:00)
[2018-07-09] MEDS ORDERED: INSULIN GLARGINE 100 UNITS/ML UNIT SC SCH (11:30)
[2018-07-09] MEDS: FUROSEMIDE 40 MG/4 ML VIAL IVP SCH ×2 (12:37→16:05)
[2018-07-09] MEDS: LOSARTAN POTASSIUM 50 MG TAB PO SCH (12:37)
[2018-07-09] MEDS: CLOPIDOGREL BISULFATE 75 MG TAB PO SCH (12:37)
[2018-07-09] MEDS: METOPROLOL SUCCINATE XR 50 MG TAB PO SCH (12:37)
--- NOTE | 2018-07-09 13:34 | ASMTCMCOM ---
CM Note CM Note Notes: 07/09/2018 Case Management Note Discussed pt during rounds this morning. Pt admitted for hypoxia and CHF exacerbation. Pt is Grenadian speaking and hard of hearing. There are therapy evals pending. Case Management d/c poc: to be determined. Case Management to follow. Date Signed: 07/09/2018 01:34 PM Electronically Signed By:Gayle Gomez RN
[2018-07-09] MEDS: INSULIN GLARGINE 100 UNITS/ML UNIT SC SCH (16:30)
--- NOTE | 2018-07-09 16:46 | HOSPPROG ---
Hospitalist Progress Note Assessment/Plan: * Acute respiratory failure -was on CPAP but now weaned to NC -due to pulmonary edema * Acute on chronic systolic CHF -repeat ECHO pending - previous EF 45% -continue IV Lasix -IV NTG gtt weaned to off * CAD/stent -Plavix * Complete heart block s/p PCM * ZACK - CPAP qhs * DM -Lantus Subjective: SOB is better Objective: Vital Signs Temp Pulse Resp BP Pulse Ox 36.9 C 93 19 158/80 H 97 07/09/18 08:00 07/09/18 16:00 07/09/18 16:00 07/09/18 16:00 07/09/18 16:00 Laboratory Results 07/09/18 04:45 07/08/18 07/09/18 07/10/18 05:59 05:59 05:59 Intake Total 408 40 Output Total 1300 650 Balance -892 -610 PT 14.4 SEC (12.0-15.0) 07/08/18 18:32 INR 1.10 (0.83-1.16) 07/08/18 18:32 CXR vewed, my personal interpretation is - CHF old chart reviewed - last ECHO september EF 45 % tele reviewed - paced rhythm - Physical Exam Constitutional: no apparent distress, appears nourished, not in pain Cardiovascular: regular rate and rhythym, no murmur, rub, or gallop Respiratory: inspiratory crackles, respiratory distress (improved), No rhonchi Gastrointestinal: normoactive bowel sounds, soft, non-tender abdomen, no palpable masses Skin: no rashes or abrasions, no fluctuance, no induration Neurologic: AAOx3, sensation intact bilaterally Psychiatric: interacting appropriately, not anxious, not encephalopathic, thought process linear ICD10 Worksheet Patient Problems: Problems Problem Status Onset CHF exacerbation Acute Hypoxia Acute Abdominal pain Acute Altered mental status Acute CAD - Coronary arteriosclerosis Acute Chest wall pain Acute Hyperglycemia Acute Knee injury Acute Pacemaker generator end of life Acute Syncope and collapse Acute Vertigo Acute
[2018-07-09] MEDS: Mirabegron [Myrbetriq] 50 MG PO SCH (20:53)
[2018-07-09] MEDS: DONEPEZIL HCL 5 MG TAB PO SCH (20:53)
[2018-07-09] MEDS: FAMOTIDINE 20 MG TAB PO SCH (20:53)
[2018-07-10 04:34] LABS: PLATELET COUNT 237 10^3/uL (150-400)
[2018-07-10] MEDS ORDERED: PROTOCOL POTASSIUM 1 DOSE MISC PRN (06:50)
[2018-07-10] MEDS ORDERED: POTASSIUM CL 10 MEQ TAB PO ONE ×3 (09:01→23:45)
[2018-07-10] MEDS: INSULIN LISPRO 100 UNIT/ML SC SCH ×3 (09:09→18:30)
[2018-07-10] MEDS: ROSUVASTATIN CALCIUM 10 MG TAB PO SCH (09:42)
[2018-07-10] MEDS: PANTOPRAZOLE SODIUM 40 MG TAB PO SCH (09:42)
[2018-07-10] MEDS: CLOPIDOGREL BISULFATE 75 MG TAB PO SCH (09:42)
[2018-07-10] MEDS: METOPROLOL SUCCINATE XR 50 MG TAB PO SCH (09:42)
[2018-07-10] MEDS: LOSARTAN POTASSIUM 50 MG TAB PO SCH (09:43)
[2018-07-10] MEDS: INSULIN GLARGINE 100 UNITS/ML UNIT SC SCH ×2 (09:47→20:20)
[2018-07-10] MEDS: FUROSEMIDE 40 MG/4 ML VIAL IVP SCH ×2 (09:47→14:54)
[2018-07-10] MEDS: FAMOTIDINE 20 MG TAB PO SCH (09:48)
[2018-07-10] MEDS: ENOXAPARIN 40 MG/0.4 ML SYR SC SCH (09:53)
--- NOTE | 2018-07-10 11:08 | HOSPPROG ---
Hospitalist Progress Note Assessment/Plan: * Acute respiratory failure - 2/2 sHF, initially required cpap, now on 2 LPM from 4 LPM. Trop neg. PCT neg. -cont diuresis -wean O2 as able * Acute on chronic systolic CHF - net neg 2 L overnight. Looks like his dry weight in 09/2017 was 78 kg, now 79 kg -repeat ECHO pending - previous EF 45% -continue IV Lasix -follow I&O's, daily weights * CAD/stent - stable, cont Plavix * Complete heart block s/p PCM * ZACK - CPAP qhs * DM - bg's 100's-200's -cont basal/bolus insulin * Hypertension - cont BB, ARB * Hypokalemia - 2/2 diuresis -replace per protocol * Full code * DVT PPLX - Lovenox * Dispo - cont inpt for ongoing diuresis Subjective: Pt feels ok. His perseverates on his need to constantly have on CPAP for oxygen. He denies CP or SOB. Objective: Vital Signs Temp Pulse Resp BP Pulse Ox 36.7 C 79 19 159/99 H 94 07/10/18 08:00 07/10/18 08:00 07/10/18 08:00 07/10/18 08:00 07/10/18 08:00 Laboratory Results 07/10/18 03:14 07/10/18 03:14 07/09/18 07/10/18 07/11/18 05:59 05:59 05:59 Intake Total 408 740 Output Total 1300 2000 Balance -892 -1260 PT 14.4 SEC (12.0-15.0) 07/08/18 18:32 INR 1.10 (0.83-1.16) 07/08/18 18:32 - Physical Exam Constitutional: no apparent distress Eyes: PERRL Ears, Nose, Mouth, Throat: moist mucous membranes Cardiovascular: regular rate and rhythym Respiratory: no respiratory distress, clear to auscultation Gastrointestinal: normoactive bowel sounds, soft, non-tender abdomen Skin: warm Musculoskeletal: full muscle strength, other (1+ b/l LE edema) Neurologic: AAOx3 Psychiatric: interacting appropriately ICD10 Worksheet Patient Problems: Problems Problem Status Onset CHF exacerbation Acute Chronic Disease Mgmt/Transitional Care Acute Hypoxia Acute Abdominal pain Acute Altered mental status Acute CAD - Coronary arteriosclerosis Acute Chest wall pain Acute Hyperglycemia Acute Knee injury Acute Pacemaker generator end of life Acute Syncope and collapse Acute Vertigo Acute
[2018-07-10] MEDS: DONEPEZIL HCL 5 MG TAB PO SCH (20:23)
[2018-07-11] MEDS: Mirabegron [Myrbetriq] 50 MG PO SCH ×2 (00:08→19:41)
[2018-07-11] MEDS ORDERED: POTASSIUM CL 10 MEQ TAB PO ONE (08:09)
[2018-07-11] MEDS: FUROSEMIDE 40 MG/4 ML VIAL IVP SCH (09:09)
[2018-07-11] MEDS: PANTOPRAZOLE SODIUM 40 MG TAB PO SCH (09:15)
[2018-07-11] MEDS: CLOPIDOGREL BISULFATE 75 MG TAB PO SCH (09:15)
[2018-07-11] MEDS: ENOXAPARIN 40 MG/0.4 ML SYR SC SCH (09:15)
[2018-07-11] MEDS: INSULIN GLARGINE 100 UNITS/ML UNIT SC SCH ×2 (09:15→19:37)
[2018-07-11] MEDS: LOSARTAN POTASSIUM 50 MG TAB PO SCH (09:15)
[2018-07-11] MEDS: METOPROLOL SUCCINATE XR 50 MG TAB PO SCH (09:15)
[2018-07-11] MEDS: ROSUVASTATIN CALCIUM 10 MG TAB PO SCH (09:15)
[2018-07-11] MEDS: INSULIN LISPRO 100 UNIT/ML SC SCH ×3 (09:16→18:31)
[2018-07-11] MEDS: FAMOTIDINE 20 MG TAB PO SCH (09:16)
[2018-07-11] MEDS: POTASSIUM CL 20 MEQ TAB PO SCH ×2 (09:23→19:37)
--- NOTE | 2018-07-11 11:19 | HOSPPROG ---
Hospitalist Progress Note Assessment/Plan: * Acute respiratory failure - 2/2 sHF, initially required cpap, now on 1 LPM from 4 LPM. Trop neg. PCT neg. -cont diuresis, change to po lasix tomorrow -cont to wean O2 as able, has home O2 * Acute on chronic systolic CHF - diuresing well, O2 requirement down. BNP 5200-->1600. BUN on the rise. Dry weight ~79 kg. -repeat ECHO pending - previous EF 45% -change to po lasix -cont to follow I&O's, daily weights * CAD/stent - stable -cont Plavix, statin * Complete heart block s/p PCM * ZACK - CPAP qhs * DM - bg's 100's-200's -cont basal/bolus insulin * Hypertension - cont BB, ARB * Hypokalemia - 2/2 diuresis -replace per protocol * Full code * DVT PPLX - Lovenox * Dispo - cont inpt for ongoing diuresis, possible d/c to home vs SNF 1-2 days , f/u PT/OT recs. Subjective: Pt feels better. Breathing improved. Denies CP. He is soft spoken , has no complaints. Objective: Vital Signs Temp Pulse Resp BP Pulse Ox 36.3 C 91 18 137/77 H 97 07/11/18 08:00 07/11/18 08:00 07/11/18 08:00 07/11/18 08:00 07/11/18 08:00 Laboratory Results 07/10/18 03:14 07/11/18 03:22 07/10/18 07/11/18 07/12/18 05:59 05:59 05:59 Intake Total 740 1780 Output Total 2000 225 Balance -1260 1555 PT 14.4 SEC (12.0-15.0) 07/08/18 18:32 INR 1.10 (0.83-1.16) 07/08/18 18:32 - Physical Exam Constitutional: no apparent distress Eyes: PERRL Ears, Nose, Mouth, Throat: moist mucous membranes Cardiovascular: regular rate and rhythym Respiratory: no respiratory distress, clear to auscultation Gastrointestinal: normoactive bowel sounds, soft, non-tender abdomen Skin: warm Musculoskeletal: full muscle strength, other (1+ b/l LE edema, improving) Neurologic: AAOx3 Psychiatric: interacting appropriately ICD10 Worksheet Patient Problems: Problems Problem Status Onset CHF exacerbation Acute Chronic Disease Mgmt/Transitional Care Acute Hypoxia Acute Abdominal pain Acute Altered mental status Acute CAD - Coronary arteriosclerosis Acute Chest wall pain Acute Hyperglycemia Acute Knee injury Acute Pacemaker generator end of life Acute Syncope and collapse Acute Vertigo Acute
[2018-07-11] MEDS: ACETAMINOPHEN 325 MG TAB PO PRN (15:19)
[2018-07-11] MEDS: DONEPEZIL HCL 5 MG TAB PO SCH (19:37)
[2018-07-12] MEDS: LOSARTAN POTASSIUM 50 MG TAB PO SCH (10:06)
[2018-07-12] MEDS: INSULIN GLARGINE 100 UNITS/ML UNIT SC SCH ×2 (10:06→19:32)
[2018-07-12] MEDS: METOPROLOL SUCCINATE XR 50 MG TAB PO SCH (10:10)
[2018-07-12] MEDS: ROSUVASTATIN CALCIUM 10 MG TAB PO SCH (10:10)
[2018-07-12] MEDS: FAMOTIDINE 20 MG TAB PO SCH (10:10)
[2018-07-12] MEDS: CLOPIDOGREL BISULFATE 75 MG TAB PO SCH (10:10)
[2018-07-12] MEDS: PANTOPRAZOLE SODIUM 40 MG TAB PO SCH (10:10)
[2018-07-12] MEDS: ENOXAPARIN 40 MG/0.4 ML SYR SC SCH (10:10)
[2018-07-12] MEDS: FUROSEMIDE 40 MG TAB PO SCH (10:10)
--- NOTE | 2018-07-12 11:37 | HOSPPROG ---
Hospitalist Progress Note Assessment/Plan: * Acute respiratory failure - 2/2 sHF, initially required cpap, now on room air from 4 LPM. Trop neg. PCT neg. -change to po lasix today * Acute on chronic systolic CHF - diuresing well, O2 requirement down. BNP 5200-->1600. BUN on the rise. Dry weight ~79 kg. -repeat ECHO pending - previous EF 45% -change to po lasix -cont to follow I&O's, daily weights * Hyperkalemia - overshot supplementation -hold K supplement today -expect to come down after lasix dose, recheck today at 1500 * CAD/stent - stable -cont Plavix, statin * Complete heart block s/p PCM * ZACK - CPAP qhs * DM - bg's 100's-200's -cont basal/bolus insulin * Hypertension - cont BB, ARB * Hypokalemia - 2/2 diuresis -replace per protocol * Full code * DVT PPLX - Lovenox * Dispo - cont inpt for ongoing diuresis, possible d/c to home vs SNF tomorrow Subjective: Pt feeling a little better each day. Less SOB. No CP. Ambulating with walker, requires standby assist. Appetite good. Objective: Vital Signs Temp Pulse Resp BP Pulse Ox 36.6 C 79 15 157/78 H 93 07/12/18 04:00 07/12/18 10:15 07/12/18 10:15 07/12/18 10:15 07/12/18 10:15 Laboratory Results 07/10/18 03:14 07/12/18 03:15 07/11/18 07/12/18 07/13/18 05:59 05:59 05:59 Intake Total 1780 1580 Output Total 225 Balance 1555 1580 PT 14.4 SEC (12.0-15.0) 07/08/18 18:32 INR 1.10 (0.83-1.16) 07/08/18 18:32 - Physical Exam Constitutional: no apparent distress Eyes: PERRL Ears, Nose, Mouth, Throat: moist mucous membranes Cardiovascular: regular rate and rhythym Respiratory: no respiratory distress, clear to auscultation, reduced air movement Gastrointestinal: normoactive bowel sounds, soft, non-tender abdomen Skin: warm Musculoskeletal: full muscle strength, other (tr-1+ bL LE edema) Neurologic: AAOx3 Psychiatric: interacting appropriately, poor insight, poor memory ICD10 Worksheet Patient Problems: Problems Problem Status Onset CHF exacerbation Acute Chronic Disease Mgmt/Transitional Care Acute Hypoxia Acute Abdominal pain Acute Altered mental status Acute CAD - Coronary arteriosclerosis Acute Chest wall pain Acute Hyperglycemia Acute Knee injury Acute Pacemaker generator end of life Acute Syncope and collapse Acute Vertigo Acute
[2018-07-12] MEDS: INSULIN LISPRO 100 UNIT/ML SC SCH ×2 (13:27→17:18)
--- NOTE | 2018-07-12 15:02 | ASMTCMCOM ---
CM Note CM Note Notes: 07/12/2018 Case Management Note Met w/pt, , daughter in law and son Miguel [phone]. 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 Pt has previous stay at [facility]. prefers pt not return but did agree to referral. [facility] is closest to Miguel's home. Faxed referrals to [facility] and [facility]. Family stipulated that be able to spend the night with pt at SNF rehab. [facility] accepted pt. Case Management d/c poc: SNF rehab pending family choice. Case Management to follow. Date Signed: 07/12/2018 03:01 PM Electronically Signed By:Gayle Gomez RN
[2018-07-12] MEDS: DONEPEZIL HCL 5 MG TAB PO SCH (19:32)
[2018-07-12] MEDS: Mirabegron [Myrbetriq] 50 MG PO SCH (19:35)
[2018-07-13] MEDS ORDERED: POTASSIUM CL 20 MEQ TAB PO SCH (09:00)
[2018-07-13] MEDS: INSULIN LISPRO 100 UNIT/ML SC SCH ×2 (11:57→15:19)
[2018-07-13] MEDS: INSULIN GLARGINE 100 UNITS/ML UNIT SC SCH (11:58)
[2018-07-13] MEDS: ENOXAPARIN 40 MG/0.4 ML SYR SC SCH (11:58)
[2018-07-13] MEDS: CLOPIDOGREL BISULFATE 75 MG TAB PO SCH (11:59)
[2018-07-13] MEDS: FUROSEMIDE 40 MG TAB PO SCH (11:59)
[2018-07-13] MEDS: LOSARTAN POTASSIUM 50 MG TAB PO SCH (12:00)
[2018-07-13] MEDS: PANTOPRAZOLE SODIUM 40 MG TAB PO SCH (12:00)
[2018-07-13] MEDS: ROSUVASTATIN CALCIUM 10 MG TAB PO SCH (12:01)
[2018-07-13] MEDS: METOPROLOL SUCCINATE XR 50 MG TAB PO SCH (12:01)
[2018-07-13] MEDS: FAMOTIDINE 20 MG TAB PO SCH (12:01)
--- NOTE | 2018-07-13 14:25 | PDIAF ---
- Diagnosis Diagnosis: heart failure Code Status: Full Code - Medication Management Discharge Medications: electronically signed and located in the Home Medication List. PICC Care - Routine: N/A - Orders Services needed: Registered Nurse, Physical Therapy, Occupational Therapy Oxygen: 1 LPM prn to keep sats >92% Diet Recommendation: cardiac -low fat low salt Equipment: home CPAP - Follow Up Care Current Providers and Referrals: Johnnie Rhodes MD [Medical Doctor] - 07/19/18 1:30 pm (please arrive 15 minutes early to your appointment) NONE *PRIMARY CARE P,. [Primary Care Provider] - As per Instructions
[2018-07-13 15:21] VITALS: BP 156/89
--- NOTE | 2018-07-13 16:05 | ASDISCHSUM ---
Discharge Information Plan Status:SNF Medically Cleared to Leave:07/12/2018 Discharge Date:07/13/2018 03:35 PM CM D/C Disposition:Custodial Facility ADT D/C Disposition:Custodial Facility Projected Discharge Date:07/14/2018 11:00 AM Transportation at D/C:Wheelchair Van Discharge Delay Reason: Follow-Up Date:07/14/2018 11:00 AM Discharge Slot: Final Diagnosis: Placement Information Referral Type:*Senior Care/SNF Referral ID:[id number] Provider Name:[facility] Address 1:[address] Address 2: [facility]:[place] Selection Factors: State:[place] Patient Contact Information Contact Name:CLEMENTINE Relationship:Son Address:[address] [place] [address] Work Phone: [facility]:[place] Alternate Phone: [facility]/Zip Code:[place] [address] Email: Financial Information Financial Class:Medicare Primary Plan Desc:MEDICARE INPATIENT Primary Plan Number:[id number] Secondary Plan Desc:GEOFFREY Secondary Plan Number:[id number] Assessment Information LACE LACE Length of stay for Answers: 4-6 days current admission Acuity / Level of Answers: Yes Care: Did the patient have an inpatient admission? Comorbidities - select Answers: Congestive heart failure all that apply Coronary Artery Disease Diabetes (uncontrolled or controlled) Other Notes: AICD, # of Emergency department Answers: 1-2 visits in the last 6 months Score: 14 Date Signed: 07/13/2018 04:02 PM Electronically Signed By:Gayle Gomez RN [facility] CM Progress Note CM Note CM Note Notes: 07/09/2018 Case Management Note Discussed pt during rounds this morning. Pt admitted for hypoxia and CHF exacerbation. Pt is Montenegrin speaking and hard of hearing. There are therapy evals pending. Case Management d/c poc: to be determined. Case Management to follow. Date Signed: 07/09/2018 01:34 PM Electronically Signed By:Gayle Gomez RN [facility] CM Progress Note CM Note CM Note Notes: 07/12/2018 Case Management Note Met w/pt, , daughter in law and son Miguel [phone]. 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 Pt has previous stay at [facility]. prefers pt not return but did agree to referral. [facility] is closest to Miguel's home. Faxed referrals to [facility] Family stipulated that be able to spend the night with pt at SNF rehab. [facility] accepted pt. Case Management d/c poc: SNF rehab pending family choice. Case Management to follow. Date Signed: 07/12/2018 03:01 PM Electronically Signed By:Gayle Gomez RN Case Management Discharge Plan Note Case Management Discharge Discharge Order Complete? Answers: Yes Patient to Obtain Answers: Other Notes: [place] [facility] Medications Transportation Arranged Answers: Other Notes: arranged by [facility] Transport will Pick (Date 07/13/2018 03:30 PM & Time) Faxed Final Orders Answers: Yes Notes: [facility] Agency/Facility Transfer Answers: Yes Notes: [facility] Report Printed & Faxed to Receiving Agency Discharge Comments Notes: 07/12/2018 Case Management Note Pt discharged to [facility]. [facility] arranged transport with [facility] wheel chair with O2. [facility] agreed that could stay overnight with patient. Faxed final orders. RN called report. Date Signed: 07/13/2018 04:04 PM Electronically Signed By:Gayle Gomez RN Intervention Information
--- NOTE | 2018-07-13 16:38 | ECHO ---
[email or web address] [address] [address] Main: [phone] Fax: Transthoracic Echocardiogram Name: JANNETTE MONTAÑO MR#: [id number] Study Date: 07/09/2018 Study Time: 03:10 PM Date of : 1930 Age: 88 year(s) Height: 170.2 cm (67 in.) Weight: 84.82 kg (187 lb.) BSA: 1.97 m2 Gender: Male Examination: Echo Indication: elevated proBNP, acute resp failure Image Quality: Technically Difficult Contrast: Requested by: Beth Campbell BP: / Heart Rate: Rhythm: Indication: elevated proBNP, acute resp failure Procedure Staff Director Mortgage: Reyna Garcia [facility] Reading Physician: Vahid Hermosillo MD Requesting Provider: Conclusions: Normal size left ventricle. Mild to moderate LVH. Moderately to severely reduced systolic function. EF is 26 %. There is paradoxic septal motion suggestive of bundle branch block, paced cardiac rhythm, or prior cardiac surgery. There is a pacemaker lead noted in the right ventricle. Mild mitral valve regurgitation is present. Aortic sclerosis is present. There is no significant aortic valve regurgitation. No aortic valve stenosis is present. Mild tricuspid regurgitation is present. Right ventricular systolic pressure measures 28mmHg. No pericardial effusion. Compared to 09/28/2017, LVEF has decreased significantly (previously reported as 45-50%). Measurements: Chambers Valvular Assessment AV/MV Valvular Assessment TV/PV Normal Normal Normal Name Value Range Name Value Range Name Value Range Ao Patt (2D): 2.9 cm (1.4 cm-2.6 AV Vmax: 1.31 m/s (1 m/s-1.7 TR Vmax: 2.42 mm/s ( - ) cm) m/s) TR PGmax: 23 mmHg ( - ) IVSd (2D): 1.5 cm (0.6 cm-1.1 AV maxP mmHg ( - ) syst. PAP: 28 mmHg ( - ) cm) AV meanP mmHg ( - ) PV Vmax: 0.80 m/s (0.6 m/s-0.9 LVDd (2D): 4.2 cm (4.2 cm-5.9 ANNALISE (VTI): 2.1 cm ( - ) m/s) cm) MV E Vmax: 0.78 m/s ( - ) PV PGmax: 3 mmHg ( - ) LVDs (2D): 3.7 cm (2.1 cm-4 MV PHT: 0.038 s ( - ) cm) MVA (PHT): 5.8 s ( - ) LVPWd (2D): 1.2 cm (0.6 cm-1 cm) Patient: JANNETTE MONTAÑO Study Date: 07/09/2018 Page 1 of 2 03:10 PM LVOTd 2.0 cm 2.0 cm mm LVEF (2D): 26 (>=54 %) RVDd(2D): 2.9 cm (1.9 cm-3.8 cmmm) Continued Measurements: Chambers Valvular Assessment AV/MV Valvular Assessment TV/PV Name Value Name Value Name Value LADs: 3.8 cm MV DecTime: 127 m/s CVP (est.): 5 mmHg LADs Lon.1 cm LA Area: 19.2 cm2 LA Volume: 50 ml LA Volume Index: 25.4 ml/m2 Additional Vessels Name Value Ao Ascendin.9 cm Findings: Left Ventricle: Normal size left ventricle. Mild to moderate LVH. Moderately to severely reduced systolic function. EF is 26 %. There is paradoxic septal motion suggestive of bundle branch block, paced cardiac rhythm, or prior cardiac surgery. Unable to assess diastolic dysfunction. Right Ventricle: Normal size right ventricle. Normal RV function. There is a pacemaker lead noted in the right ventricle. Left Atrium: The left atrium is normal in size. Right Atrium: The right atrium is normal in size. Mitral Valve: The mitral valve is normal in appearance. Mild mitral valve regurgitation is present. No mitral stenosis is present. Aortic Valve: The aortic valve is tri-leaflet. Aortic sclerosis is present. There is no significant aortic valve regurgitation. No aortic valve stenosis is present. Tricuspid Valve: The tricuspid valve is normal in appearance and function. Mild tricuspid regurgitation is present. The pulmonary artery pressure is normal. Right ventricular systolic pressure measures 28mmHg. Pulmonic Valve: The pulmonic valve is normal in appearance and function. There is no pulmonic regurgitation seen. Aorta: The aorta is normal. Normal size aortic root measuring 2.9 cm. Normal size ascending aorta measuring 2.9 cm. IVC: Subcostal not well visualized. Pericardium: No pericardial effusion. There is a pleural effusion present. Exam Comments: Technically difficult echo, limited windows. (No Signature Object) Patient: JANNETTE MONTAÑO Study Date: 07/09/2018 Page 2 of 2 03:10 PM [id number]
--- NOTE | 2018-07-27 04:54 | GDS ---
DISCHARGE DIAGNOSES: 1. Acute hypoxemic respiratory failure secondary to acute systolic heart failure. 2. Acute on chronic systolic heart failure. 3. Hyperkalemia secondary to over supplementation. Normalized on the day of discharge. 4. Coronary artery disease with history of stent, stable. 5. Complete heart block, status post pacemaker. 6. Obstructive sleep apnea. 7. Diabetes mellitus. 8. Hypertension. CONSULTANTS: None. HISTORY OF DETAILS: History and physical dated July 08, 2018. In brief, Mr. Lake is an 88- year-old male with history of chronic systolic heart failure who presented to the emergency [facility] with shortness of breath. He was found to be in acute heart failure, was admitted to the hospital for further management. HOSPITAL COURSE: Patient admitted to the progressive care unit. He was diuresed with IV Lasix. His oxygen requirement improved from 6 L/minute to 1 L/minute. He was continued on CPAP for his known s leep apnea. He did require potassium supplementation in the setting of diuresis and at 1 point his p otassium was as high as 5.5. However, on the day of discharge, his potassium was improved to 3.7. H e will be discharged home on oral Lasix with potassium supplementation and close followup with Cardio logy. DISPOSITION: Patient is discharged home in stable condition. FOLLOWUP: 1. Dr. Johnnie Grace, July 19 at 13 p.m. 2. Primary care. DISCHARGE MEDICATIONS: Please see medication list. Medications on discharge include Lasi x 40 mg p.o. daily and potassium 20 mEq p.o. daily. He will continue all other outpatient medication s as previously prescribed. /[id number]/MODL
== END 2018-07-13 15:35 | DRG 291 ==
LOC: F2N 20:28 → F2W 07-09 18:57
PROVIDERS: ADMIT Internal Medicine; ATTEND Internal Medicine
DX: I11.0 Hypertensive heart disease with heart failure (principal); I50.23 Acute on chronic systolic (congestive) heart failure; J96.00 Acute respiratory failure, unspecified whether with hypoxia or hypercapnia; E87.6 Hypokalemia; I25.10 Atherosclerotic heart disease of native coronary artery without angina pectoris; E11.9 Type 2 diabetes mellitus without complications; G47.33 Obstructive sleep apnea (adult) (pediatric); E78.5 Hyperlipidemia, unspecified; R91.1 Solitary pulmonary nodule; H91.90 Unspecified hearing loss, unspecified ear; Z95.810 Presence of automatic (implantable) cardiac defibrillator; Z87.891 Personal history of nicotine dependence; Z79.4 Long term (current) use of insulin; Z95.5 Presence of coronary angioplasty implant and graft
CPT/HCPCS: 84484-PO; 96365; 97110-GO; 97110-GP; 97116-GP; 97161-GP; 97166-GO; 97530-GP; 97535-GO; G8978-GP-CK; G8979-GP-CJ; G8987-GO-CK; G8988-GO-CI; J1650; J1815; J1940

== ENCOUNTER 2018-10-11 09:16 | Observation (INO) | payer OTHER ==
[2018-10-11] MEDS ORDERED: DIAZEPAM 5 MG TAB PO ONE (09:17)
[2018-10-11] MEDS ORDERED: ASPIRIN EC 325 MG TAB PO ONE ×2 (09:17→10:03)
[2018-10-11] MEDS ORDERED: FAMOTIDINE 20 MG TAB PO ONE (09:17)
[2018-10-11] MEDS ORDERED: diphenhydrAMINE 25 MG CAP PO ONE ×2 (09:17→10:03)
[2018-10-11] MEDS ORDERED: NS 1,000 ML IV ONE (09:17)
[2018-10-11] MEDS ORDERED: FAMOTIDINE 20 MG TAB ONE (10:03)
[2018-10-11 10:16] LABS: PLATELET COUNT 237 10^3/uL (150-400)
[2018-10-11] MEDS ORDERED: VERAPAMIL 5 MG/2 ML VIAL ONE (10:19)
[2018-10-11] MEDS ORDERED: fentaNYL 100 MCG/2 ML INJ ONE (10:19)
[2018-10-11] MEDS ORDERED: MIDAZOLAM 2 MG/2 ML VIAL ONE (10:19)
[2018-10-11] MEDS ORDERED: LIDOCAINE 1% 300 MG/30 ML SDV ONE (10:19)
[2018-10-11] MEDS ORDERED: HEPARIN 10,000 UNIT/10 ML MDV (1,000 UNIT/ML) ONE (10:19)
[2018-10-11] MEDS ORDERED: IOPAMIDOL (ISOVUE-370) 150 ML BTL IV ONE (10:20)
[2018-10-11 10:33] LABS: INR 1.02 (0.83-1.16)
--- NOTE | 2018-10-11 10:33 | PDPROPOC ---
Sedation Plan of Care Sedation Plan of Care: vital signs stable, mental status noted, patient educated of risks, benefits, alternatives, patient can tolerate sedation ASA Classification: ASA 2 Planned drugs: fentanyl, midazolam Mallampati Score: Class 2 Mallampati Reference Image: Patient passed 3-3-2 rule?: Yes
--- NOTE | 2018-10-11 11:16 | PDDXCAT ---
Diagnostic Cath Note - . Date: 10/11/18 Salvage Determiner: Serafin Indication: other (Class 3 CHF) - Procedure Access: right wrist Procedure: left heart catheterization, coronary angiography - Materials Left Heart Cath size: 5F Left Heart Cath materials: JL3.5, other (Richton 4) - Findings-Left Heart Catheterization LM: Unobstructed LAD: Stent widely patent, no new obstruction LCX: Unobstructed RCA: Dominant: Unobstructed Complications: Due to tortuosity unable to cross the aortic valve from the right arm. Estimated blood loss: <50ml Closure method: TR Band Assessment: Mild nonobstructive atherosclerotic cardiovascular disease without focal obstruction. Widely patent LAD stent. Plan: Echocardiogram today for repeat assessment of LV function. Consideration for biventricular pacing. Patient Problems: Problems Problem Status Onset Chronic Disease Mgmt/Transitional Care Acute Hyperglycemia Acute Altered mental status Acute CHF exacerbation Acute Hypoxia Acute Pacemaker generator end of life Acute Syncope and collapse Acute CAD - Coronary arteriosclerosis Acute Vertigo Acute Chest wall pain Acute Abdominal pain Acute Knee injury Acute
[2018-10-11] MEDS ORDERED: DONEPEZIL HCL 5 MG TAB PO SCH (21:00)
[2018-10-12] MEDS ORDERED: METOPROLOL SUCCINATE XR 100 MG TAB PO SCH (09:00)
[2018-10-12] MEDS ORDERED: LOSARTAN POTASSIUM 50 MG TAB PO SCH (09:00)
[2018-10-12] MEDS ORDERED: CLOPIDOGREL BISULFATE 75 MG TAB PO SCH (09:00)
[2018-10-12] MEDS ORDERED: ROSUVASTATIN CALCIUM 10 MG TAB PO SCH (09:00)
[2018-10-12] MEDS ORDERED: SPIRONOLACTONE 25 MG TAB PO SCH (09:00)
[2018-10-12] MEDS ORDERED: ESCITALOPRAM OXALATE 10 MG TAB PO SCH (09:00)
--- NOTE | 2018-10-12 09:57 | SOAPPROG ---
SOAP Progress Note Assessment/Plan: Assessment: 1. Delirium resolving. Post conscious sedation during cardiac catheterization. 2. Coronary disease with patent LAD stent 3. Ischemic cardiomyopathy ejection fraction 40% 4. Pacing. Impression: Patient slowly improving over difficult night. He has had no trauma related to his delirium over the last 12 hr. This morning he is sitting upright in bed responding to his appropriately. No focal neurologic findings. Recommendations: Discharged home as soon as possible as I fear continued time in the hospital will contribute to his disorientation and delirium. However to do this will need to assure safety, in particular, his 's ability to care for him at home. Echocardiogram pending for assessment of LV function. Discussed need for biventricular pacing. Dr. Lui will see him in clinic. Plan: 10/12/18 09:47 10/12/18 09:58 Subjective: Up in bed. He feels normal. Objective: Vital Signs Temp Pulse Resp BP Pulse Ox 36.4 C 85 18 136/89 H 89 L 10/11/18 20:00 10/12/18 08:00 10/12/18 08:00 10/12/18 08:00 10/12/18 08:00 Laboratory Results 10/11/18 10:00 10/11/18 10:00 10/11/18 10/12/18 10/13/18 05:59 05:59 05:59 Output Total 150 Balance -150 PT 13.0 SEC (12.0-15.0) 10/11/18 10:00 INR 1.02 (0.83-1.16) 10/11/18 10:00 Physical Exam - Physical Exam General Appearance: alert, no apparent distress Neck: supple Respiratory: lungs clear, normal breath sounds Cardiac/Chest: regular rate, rhythm Neuro/Psych: alert ICD10 Worksheet Patient Problems: Problems Problem Status Onset Chronic Disease Mgmt/Transitional Care Acute Hyperglycemia Acute Altered mental status Acute CHF exacerbation Acute Hypoxia Acute Pacemaker generator end of life Acute Syncope and collapse Acute CAD - Coronary arteriosclerosis Acute Vertigo Acute Chest wall pain Acute Abdominal pain Acute Knee injury Acute
--- NOTE | 2018-10-12 11:16 | CPEKG ---
Test Reason : OPEN Blood Pressure : / mmHG Vent. Rate : 088 BPM Atrial Rate : 089 BPM P-R Int : 197 ms QRS Dur : 175 ms QT Int : 469 ms P-R-T Axes : 134 -65 115 degrees QTc Int : 568 ms Atrial-ventricular dual-paced rhythm Unchanged in comparison to prior Confirmed by Jose Alfredo Wang ([id number]) on 10/12/2018 11:15:51 AM Referred By: JUAQUIN BENOIT Confirmed By:Jose Alfredo Wang
--- NOTE | 2018-10-12 11:22 | ASMTCMCOM ---
CM Note CM Note Notes: Pts case discussed w/ ALMAS Meng. Pt is a 88 y/o man admitted for a cath w/ Dr. Betancourt. Therapies have been ordered and awaiting recommendations. Needs are TBD at this time. CM to follow. Plan: TBD Date Signed: 10/12/2018 11:21 AM Electronically Signed By:DODIE Lockhart
[2018-10-12 11:53] VITALS: BP 130/79
[2018-10-12] MEDS ORDERED: INSULIN DETEMIR SQ SCH (12:00)
--- NOTE | 2018-10-12 12:38 | ECHO ---
[email or web address] [address] [address] Main: [phone] Echocardiography Examination Transthoracic Name: JANNETTE MONTAÑO MR#: [id number] Study Date: 10/12/2018 Study Time: 10:21 AM Date of : 1930 Age: 88 year(s) Height: 167.6 cm (66 in.) Weight: 87.54 kg (193 lb.) BSA: 1.97 m2 Gender: Male Examination: Echo Contrast: Image Quality: Adequate Rhythm: Heart Rate: 87 bpm BP: / Indication: Post Cath Procedure Staff Referring Physician: Clinic Director: Je Latif RDCS Reading Physician: Florentin Martell MD Requesting Provider: Ordering Physician: Wally Betancourt MD Indication: Post Cath Measurements Chambers AV/MV Label Value Normal Value Label Value Normal Value EF lower range (%) 15 % AV PGmax 2 mmHg EF upper range (%) 20 % AV PGmean 1 mmHg IVSd, 2D 0.9 cm (0.6cm - 1.1cm) AV Vmax 0.71 m/s IVSd, MM 1.3 cm (0.6cm - 0.9cm) MV A Vmax 0.71 m/s LVDd, 2D 4.2 cm (4.2cm - 5.9cm) MV E' septal 0.04 m/s LVDd, MM 5.7 cm (4.2cm - 5.9cm) MV E Vmax 0.54 m/s LVDs, 2D 3.8 cm (2.1cm - 4cm) MV E/A 0.76 LVDs, MM 5.2 cm (2cm - 3.8cm) MV E/E' septal 14.9 (0.45 - 1.25) LVEF, 2D 22 % (54% - 74%) TV/PV LVOT PGmax 2 mmHg Label Value Normal Value LVOT PGmean 1 mmHg RA Pressure 5 mmHg LVOT Vmax 0.65 m/s (0.7m/s - 1.1m/s) RVSP 20 mmHg LVOT Vmean 0.34 m/s TR Pmax 15 mmHg LVPWd, 2D 1 cm (0.6cm - 1cm) TR Vmax 1.94 m/s LVPWd, MM 1.3 cm (0.6cm - 1cm) PV PGmax 3 mmHg RVDd, 2D 2.7 cm (1.9cm - 3.8cm) PV Vmax, Caliper 0.83 m/s (0.6m/s - 0.9m/s) LA Volume, BP 71 ml (18ml - 58ml) LAESV index, BP 36 ml/m2 Additional Vessels Patient: JANNETTE MONTAÑO Study Date: 10/12/2018 Page 1 of 3 10:21 AM Label Value Normal Value AoRoot, MM 3 cm (2.2cm - 3.7cm) Conclusions Left Ventricle: Severely reduced systolic left ventricular function. EF range is estimated at 15 % - 20 %. There is paradoxic septal motion suggestive of bundle branch block, paced cardiac rhythm, or prior cardiac surgery. Right Ventricle: Right ventricular systolic function is mildly reduced. Tricuspid Valve: Pulmonary artery pressure normal. Pericardium: No pericardial effusion. Findings Left Ventricle: Left ventricle is on the upper limits of normal. Severely reduced systolic left ventricular function. The EF is visually estimated to be 20 %. EF range is estimated at 15 % - 20 %. There is mild concentric left ventricular hypertrophy. There is paradoxic septal motion suggestive of bundle branch block, paced cardiac rhythm, or prior cardiac surgery. Right Ventricle: Normal size right ventricle. Right ventricular systolic function is mildly reduced. There is a pacing wire present in the right ventricle. Left Atrium: The left atrium is mildly dilated. Right Atrium: The right atrium is normal in size. Mitral Valve: Mitral valve appears structurally normal. No mitral regurgitation. No mitral valve stenosis. There is no mitral calcification. Aortic Valve: No aortic valve regurgitation. There is no aortic stenosis. Aortic leaflets exhibit mild calcification. The aortic valve is trileaflet. Tricuspid Valve: Tricuspid valve leaflets are normal in appearance and function. Trivial tricuspid regurgitation. Right Ventricular systolic pressure is measured at 20 mmHg. Pulmonary artery pressure normal. Pulmonic Valve: Pulmonic leaflets are normal in appearance and function. Aorta: The aorta is normal. The aortic root size in M-mode measures 3.0 cm. Aorta Measurements AoRoot, MM is 3.0 cm. Pericardium: No pericardial effusion. Exam Details Procedure Ordered: Echo Procedure Status: Routine study Image Quality: Adequate Patient: JANNETTE MONTAÑO Study Date: 10/12/2018 Page 2 of 3 10:21 AM Facility Location: Cardiac Echo 1 (No Signature Object) Patient: JANNETTE MONTAÑO Study Date: 10/12/2018 Page 3 of 3 10:21 AM [id number]
--- NOTE | 2018-10-12 14:23 | ASMTCMCOM ---
CM Note CM Note Notes: Therapies have cleared pt to d/c without any needs. Pt is being d/c'd today. CM available for changes. Plan: Independent Date Signed: 10/12/2018 02:22 PM Electronically Signed By:DODIE Lockhart
== END 2018-10-12 14:40 | disposition home or self-care (01) ==
LOC: FCATH 09:16 → F2W 14:15
PROVIDERS: ADMIT Internal Medicine Interventional Cardiology; ATTEND Internal Medicine Interventional Cardiology
PROC: 4A023N7 Measurement of Cardiac Sampling and Pressure, Left Heart, Percutaneous Approach (ICD-10-PCS; principal; 2018-10-11)
PROC: B2111ZZ Fluoroscopy of Multiple Coronary Arteries using Low Osmolar Contrast (ICD-10-PCS; principal; 2018-10-11)
PROC: B2151ZZ Fluoroscopy of Left Heart using Low Osmolar Contrast (ICD-10-PCS; principal; 2018-10-11)
DX: R41.0 Disorientation, unspecified (principal); I25.110 Atherosclerotic heart disease of native coronary artery with unstable angina pectoris; I50.22 Chronic systolic (congestive) heart failure; J96.11 Chronic respiratory failure with hypoxia; G47.33 Obstructive sleep apnea (adult) (pediatric); E11.9 Type 2 diabetes mellitus without complications; I11.0 Hypertensive heart disease with heart failure; Z95.5 Presence of coronary angioplasty implant and graft; Z95.0 Presence of cardiac pacemaker
CPT/HCPCS: 93005; 93306; 93454; 97162; 97165; C1769; G0378; J1644; J2250; J3010; Q9967

== ENCOUNTER 2018-11-02 08:36 | Observation (INO) | payer OTHER ==
[2018-11-02] MEDS ORDERED: BACITRACIN IRRIGATION/NS 50,000 UNITS/1,000 ML BTL IRR ONE (08:50)
[2018-11-02] MEDS ORDERED: NS 1,000 ML IV ONE (08:50)
[2018-11-02] MEDS ORDERED: DIAZEPAM 5 MG TAB PO ONE (08:50)
[2018-11-02] MEDS ORDERED: ceFAZolin 2 GM/DEXTROSE 100 ML IV ONE (08:50)
[2018-11-02] MEDS ORDERED: diphenhydrAMINE 25 MG CAP PO ONE (08:50)
[2018-11-02] MEDS ORDERED: DEXMEDETOMIDINE HCL 200 MCG/2 ML VIAL IV ONE (09:30)
[2018-11-02 09:50] LABS: PLATELET COUNT 232 10^3/uL (150-400)
[2018-11-02 10:07] LABS: INR 1.02 (0.83-1.16)
--- NOTE | 2018-11-02 10:56 | PDANEPAE ---
ANE History of Present Illness EF 20% ANE Past Medical History - Cardiovascular History Hx Hypertension: Yes Hx Chest Pain: Yes Hx Coronary Artery / Peripheral Vascular Disease: Yes Hx CHF / Valvular Disease: Yes Cardiovascular History Comment: EF 20%. coronaries open - Pulmonary History Hx COPD: No Hx Asthma/Reactive Airway Disease: No Hx Recent Upper Respiratory Infection: No Hx Oxygen in Use at Home: Yes Hx Sleep Apnea: Yes - Endocrine History Hx Diabetes: Yes Hypothyroid: No Hyperthyroid: No Obesity: no - Renal History Hx Renal Disorders: No Renal History Comment: Cr. 1.3 - Liver History Hx Hepatic Disorders: No - Neurological & Psychiatric Hx Hx Neurological and Psychiatric Disorders: Yes Neurological / Psychiatric History Comment: dementia - Cancer History Hx Cancer: No - Chronic Pain History Chronic Pain: No ANE Review of Systems Review of systems is: negative Review of Systems: - Exercise capacity Exercise capacity: <4 METS ANE Patient History - Allergies Allergies/Adverse Reactions: No Known Allergies Allergy (Verified 09/28/17 04:19) - Home Medications Home medications: home medication list seen and reviewed Home Medications: Losartan Potassium [Cozaar 50 mg (*)] 100 mg PO DAILY 05/11/17 [Last Taken 11/01 08:00] Clopidogrel Bisulfate [Plavix (*)] 75 mg PO DAILY 09/28/17 [Last Taken 10/29/18 08:00] Ranitidine HCl [Zantac] 150 mg PO HS 09/28/17 [Last Taken 11/01/18 20:00] Rosuvastatin Calcium [Crestor] 10 mg PO DAILY 09/28/17 [Last Taken 11/01/18 08: 00] Donepezil HCl [Aricept 5 MG (*)] 5 mg PO HS 07/09/18 [Last Taken 10/29/18] Escitalopram Oxalate [Lexapro] 10 mg PO DAILY 10/11/18 [Last Taken 10/29/18] Insulin Detemir [Levemir] 30 unit SQ TIDMEAL 10/11/18 [Last Taken 11/01/18 08:00 ] Metoprolol Succinate Xr [Toprol Xl 100 mg (*)] 100 mg PO DAILY 10/11/18 [Last Taken 11/01/18 08:00] Nitroglycerin [Nitrostat 0.4 mg (*)] 0.4 mg SL Q5M PRN 10/11/18 [Last Taken Unknown] Spironolactone [Aldactone 25 MG (*)] 12.5 mg PO DAILY 10/11/18 [Last Taken 11/01 08:00] - NPO status NPO Status: no food or drink >8 hours - Anes Hx Anes Hx: post operative cognitive dysfunction - Smoking Hx Smoking Status: Former smoker - Alcohol Use Alcohol Use: None - Family Anes Hx Family Anes Hx: none ANE Labs/Vital Signs - Labs Result Diagrams: 11/02/18 09:25 11/02/18 09:25 - Vital Signs Height: 173 cm Weight: 83.7 kg ANE Physical Exam - Airway Neck exam: FROM Mallampati Score: Class 2 Mouth exam: normal dental/mouth exam - Pulmonary Pulmonary: no respiratory distress, clear to auscultation - Cardiovascular Cardiovascular: regular rate and rhythym, no murmur, rub, or gallop - ASA Status ASA Status: IV ANE Anesthesia Plan Anesthesia Plan: GA w LMA, GA with mask, MAC
[2018-11-02] MEDS ORDERED: PROPOFOL/EMULSION 500 MG/50 ML BOTTLE IV ONE (11:00)
[2018-11-02] MEDS ORDERED: LIDOCAINE 2% 2 ML INJ ONE ×2 (11:01)
[2018-11-02] MEDS ORDERED: LIDOCAINE 1% 300 MG/30 ML SDV ONE (11:15)
[2018-11-02] MEDS ORDERED: BUPIVACAINE 0.75% 10 ML SDV ONE (11:15)
[2018-11-02] MEDS ORDERED: IOPAMIDOL (ISOVUE-300) 100 ML BTL ONE (11:15)
--- NOTE | 2018-11-02 11:37 | PDGENHP ---
History & Physical Chief Complaint: chronic systolic heart failure History of Present Illness: chronic systolic heart failure, DC ICD in situ, chronically ventricular paced, presenting for upgrade to BIV ICD Relevant Physical Exam: A+Ox4, no focal deficits, RR/NR, no MRG, CTAB Cardiorespiratory Assessment: chronic systolic heart failure -> upgrade DC ICD to BIV ICD
[2018-11-02] MEDS ORDERED: ePHEDrine SULFATE 25 MG/5 ML SYR ONE ×2 (12:00→14:18)
--- NOTE | 2018-11-02 13:26 | CPEKG ---
Test Reason : OPEN Blood Pressure : / mmHG Vent. Rate : 083 BPM Atrial Rate : 083 BPM P-R Int : 200 ms QRS Dur : 175 ms QT Int : 480 ms P-R-T Axes : 011 -71 125 degrees QTc Int : 565 ms Atrial-ventricular dual-paced rhythm Confirmed by Treva Bello ([id number]) on 11/02/2018 1:25:54 PM Referred By: Perry Jeffrey Confirmed By:Treva Bello
[2018-11-02] MEDS ORDERED: NALOXONE HCL 0.4 MG/ML INJ IVP PRN (13:41)
--- NOTE | 2018-11-02 13:42 | POSTANESTH ---
Post Anesthetic Evaluation Cardiovascular Status: Normal, Stable Respiratory Status: Normal, Stable Level of Consciousness/Mental Status: Can Participate in Eval Pain Control: Adequate, Prn Tx Ordered Nausea/Vomiting Control: Adequate, Prn Tx Ordered Complications Possibly Related to Anesthesia: None Noted
[2018-11-02] MEDS ORDERED: HYDROCODONE/APAP 5/325 TAB PO PRN (14:09)
[2018-11-02] MEDS ORDERED: ACETAMINOPHEN 325 MG TAB PO PRN (14:14)
[2018-11-02] MEDS ORDERED: NITROGLYCERIN 0.4 MG BTL SL PRN (14:14)
--- NOTE | 2018-11-02 14:29 | EPPROC ---
Electrophysiology Procedure Note: Date: 11/02/2018 [facility] Author: Avel Jeffrey MD Procedures: Upgrade dual-chamber pacemaker to biventricular pacemaker- 80388, [id number], [id number] Indications: 88-year-old male with chronic systolic heart failure, chronically RV pacing dependent. He is referred for upgrade of dual-chamber pacemaker to biventricular pacemaker. Techniques: Following informed consent, the patient was brought to the EP lab in a fasting nonsedated state, in in atrial/ventricular paced rhythm. IV antibiotics were administered. The pacemaker was programmed to asynchronous pacing mode. IV sedation was provided by the anesthesiology service. The left anterior chest was prepped and draped in usual sterile fashion. Left upper extremity venogram showed patent left subclavian/innominate venous system. 1% lidocaine was infiltrated over the chronic pacemaker pocket. Cutdown was performed to the capsule and the system was taken out of pocket. The pocket was expanded to accommodate the new pulse generator. Vascular access was obtained in the extrathoracic portion of the left subclavian vein under fluoroscopic guidance. A 9 [place] hemostasis sheath was inserted. A CS selector sheath was advanced and used to engage the coronary sinus. Occlusive venogram of the coronary sinus showed a large lateral branch of the coronary sinus, as well as a smaller anterolateral branch of the coronary sinus. The lateral branch was engaged with a sub selector, and a ELECTRIC TRACK SWITCH MAINTAINER lead was advanced to a distal position in this branch over a coronary wire. Pacing and sensing parameters were acceptable in this position, and multiple bipoles showed lack of diaphragmatic stimulation with high-output pacing. The sub selector and the CS sheath were slit, and the access sheath was peeled away. The ELECTRIC TRACK SWITCH MAINTAINER lead was anchored to the underlying fascia using 2 nonabsorbable sutures around the retention sleeve. The ELECTRIC TRACK SWITCH MAINTAINER lead was connected to the new Bi V pulse generator. The old pulse generator was disconnected from the RA and RV leads, and taken off the field. The RA and RV leads were connected to the new pulse generator. The system was placed in pocket. The pocket was irrigated with antibiotic solution, and D stat hemostatic matrix was injected. The pocket was closed in layers using resorbable sutures, and dressed with Steri-Strips. The patient tolerated the procedure well. Pulse generator: Biotronik [id number], SN [id number], implant 11/02/18 DDD-CLS 70-130 RA lead: Pacesetter [id number], SN [id number], implant 06/18/01 2.3mV, 381ohms, 1.0V@0.4ms RV lead: Biotronik [id number], SN [id number], implant 06/18/01 paced, 780ohms, 0.8V@0.4ms LV lead: Biotronik [id number], SN [id number], implant 11/02/18 paced, 585ohms, 0.6V@0.4ms EBL: Minimal Complications: None Assessment: Successful upgrade of dual-chamber pacemaker to biventricular pacemaker Plan: Bedrest 4 hr post procedure Chest x-ray and interrogation in a.m. Keep incision dry for 2 weeks Left upper extremity restrictions for 1 month Patient Problems: Problems Problem Status Onset Abdominal pain Acute Altered mental status Acute CAD - Coronary arteriosclerosis Acute CHF exacerbation Acute Chest wall pain Acute Chronic Disease Mgmt/Transitional Care Acute Hyperglycemia Acute Hypoxia Acute Knee injury Acute Pacemaker generator end of life Acute Syncope and collapse Acute Vertigo Acute
--- NOTE | 2018-11-02 18:51 | CPEKG ---
Test Reason : OPEN Blood Pressure : / mmHG Vent. Rate : 071 BPM Atrial Rate : 071 BPM P-R Int : 170 ms QRS Dur : 128 ms QT Int : 490 ms P-R-T Axes : 127 207 -11 degrees QTc Int : 533 ms Atrial-ventricular dual-paced rhythm Confirmed by Treva Bello ([id number]) on 11/02/2018 6:50:38 PM Referred By: Perry Jeffrey Confirmed By:Treva Bello
[2018-11-02] MEDS: FAMOTIDINE 20 MG TAB PO SCH (20:37)
[2018-11-02] MEDS ORDERED: DONEPEZIL HCL 5 MG TAB PO SCH (21:00)
[2018-11-02] MEDS: INSULIN GLARGINE 100 UNITS/ML UNIT SC SCH (22:30)
[2018-11-03 04:45] LABS: PLATELET COUNT 184 10^3/uL (150-400)
[2018-11-03] MEDS: FAMOTIDINE 20 MG TAB PO SCH (08:17)
[2018-11-03] MEDS: INSULIN GLARGINE 100 UNITS/ML UNIT SC SCH (08:43)
[2018-11-03] MEDS ORDERED: ROSUVASTATIN CALCIUM 10 MG TAB PO SCH (09:00)
[2018-11-03] MEDS ORDERED: METOPROLOL SUCCINATE XR 100 MG TAB PO SCH (09:00)
[2018-11-03] MEDS ORDERED: SPIRONOLACTONE 25 MG TAB PO SCH (09:00)
[2018-11-03] MEDS ORDERED: LOSARTAN POTASSIUM 50 MG TAB PO SCH (09:00)
[2018-11-03] MEDS ORDERED: ESCITALOPRAM OXALATE 10 MG TAB PO SCH (09:00)
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
[2018-11-03 11:25] VITALS: BP 109/68
--- NOTE | 2018-11-03 18:03 | GDS ---
[f rep st] DISCHARGE SUMMARY DISCHARGE DIAGNOSES: 1. Ischemic cardiomyopathy. 2. Prior dual-chamber pacemaker implant. 3. Status post upgrade to biventricular pacemaker. BRIEF HISTORY: This is an 88-year-old man with a history of chronic ischemic CHF. His ejection fraction is 25%. He has complete heart block, and is 100% ventricularly paced. He has a history of LAD stent which was patent on recent angiogram. He has [place] Heart Association class III symptoms with increasing fatigue. He is not a candidate for an ICD. HOSPITAL COURSE: Dr. Jeffrey upgraded his previous dual-chamber pacemaker to a new Biotronik biventricular pacemaker with a new LV lead. He received a Biotronik [id number] biventricular pacemaker. He did well overnight. This morning , he did have some moderate discomfort at the pacemaker implant site which was relieved with oxycodone. Telemetry has demonstrated A pacing, biventricular pacing with occasional PVCs. The morning of discharge, pacemaker interrogation demonstrated normal function. Right atrial threshold is 1.2 V at 0.4 milliseconds. Lead impedance is 370 ohms. RV capture threshold is 0.5 V at 0.4 milliseconds. Lead impedance is 830 ohms. LV capture threshold was 0.8 V at 0.4 milliseconds. Lead impedance is 487. The pacemaker is programmed with CLS on with a base rate of 70 beats per minute. Chest x-ray demonstrated no pneumothorax. LAB WORK: WBC is 7.45, hemoglobin 13.3, hematocrit 36.8, platelets 184. Sodium 138, potassium 4.0, chloride 107, bicarb 22, BUN 17, creatinine 1.2. Glucose is 136. PHYSICAL EXAM: VITAL SIGNS: Blood pressure is 136/86, pulse is 79, respirations 10, temperature is 36.6, O2 saturation is 97% on 2 L of oxygen. GENERAL: He is alert, he is lying in bed, in no acute distress. CARDIAC: Regular rate and rhythm without murmur, rub, or gallop. Pacemaker incision site has Steri-Strips that are dry and intact. There is no significant swelling. No bleeding. LUNGS: Clear to auscultation. ABDOMEN: Soft, nontender. EXTREMITIES: Warm. No discoloration. DISCHARGE INSTRUCTIONS: These were reviewed with the Croatian healthcare interpreter interpreting. They were also given written instructions. DISCHARGE MEDICATIONS: Continue home medications. He understands to restart the Plavix on Tuesday. FOLLOWUP: He has a followup on November 16, for a pacemaker and wound check at 11:30. ADDENDUM Avel Jeffrey MD - Patient seen and case discussed with Ms Griffith. Relevant portions of history/physical/ros/data review work personally performed. Uneventful postprocedure observation, status post upgrade of dual- chamber pacemaker to biventricular pacemaker. Postprocedure care and follow-up as documented above. /[id number]/MODL MTDD
--- NOTE | 2018-11-04 15:13 | CPEKG ---
Test Reason : OPEN Blood Pressure : / mmHG Vent. Rate : 071 BPM Atrial Rate : 071 BPM P-R Int : 155 ms QRS Dur : 128 ms QT Int : 468 ms P-R-T Axes : -49 210 008 degrees QTc Int : 509 ms Atrial-ventricular dual-paced rhythm Confirmed by Treva Bello ([id number]) on 11/04/2018 3:13:48 PM Referred By: Perry Jeffrey Confirmed By:Treva Bello
== END 2018-11-03 14:38 | disposition home or self-care (01) ==
LOC: FCATH 08:36 → F2W 14:12
PROVIDERS: ADMIT Internal Medicine Cardiovascular Disease; ATTEND Internal Medicine Cardiovascular Disease
PROC: 02HL3JZ Insertion of Pacemaker Lead into Left Ventricle, Percutaneous Approach (ICD-10-PCS; principal; 2018-11-02)
PROC: 0JPT0PZ Removal of Cardiac Rhythm Related Device from Trunk Subcutaneous Tissue and Fascia, Open Approach (ICD-10-PCS; principal; 2018-11-02)
PROC: B5171ZA Fluoroscopy of Left Subclavian Vein using Low Osmolar Contrast, Guidance (ICD-10-PCS; principal; 2018-11-02)
PROC: 0JH606Z Insertion of Pacemaker, Dual Chamber into Chest Subcutaneous Tissue and Fascia, Open Approach (ICD-10-PCS; principal; 2018-11-02)
DX: I25.5 Ischemic cardiomyopathy (principal); I50.22 Chronic systolic (congestive) heart failure; I44.2 Atrioventricular block, complete; Z95.5 Presence of coronary angioplasty implant and graft; I25.10 Atherosclerotic heart disease of native coronary artery without angina pectoris; N17.9 Acute kidney failure, unspecified; E11.22 Type 2 diabetes mellitus with diabetic chronic kidney disease; E78.5 Hyperlipidemia, unspecified; G47.33 Obstructive sleep apnea (adult) (pediatric)
CPT/HCPCS: 33221; 33225; 33228; 71046; 93005; A4649; C1769; C1900; C2621; J0690; J1815; J2704; Q9967

== ENCOUNTER → 2018-11-23 | Outpatient (CLI) | payer OTHER | LOC: BHFA 09:15 | PROVIDERS: ATTEND Internal Medicine Cardiovascular Disease | DX: I50.9 Heart failure, unspecified (principal) ==

== ENCOUNTER 2018-12-05 15:42 | Emergency (ER) | payer OTHER ==
--- NOTE | 2018-12-05 16:19 | EDPHY ---
H & P Stated Complaint: c/o L lateral chest/rib pain x 2 days - Personal History Tetanus Vaccine Date: unsure - Medical/Surgical History Hx Asthma: No Hx Chronic Respiratory Disease: Yes Hx Diabetes: Yes Hx Cardiac Disease: Yes Hx Renal Disease: No Hx Cirrhosis: No Hx Alcoholism: No Hx HIV/AIDS: No Hx Splenectomy or Spleen Trauma: No Other PMH: hyperlipidemia, htn, 6 stents, pacemaker (atrial) 2003, gerd, chf, 02 as needed 4L, lymphoma with radiation tx 2006, arthritis. type 2 diabetic, [place], sleep apnea - Social History Smoking Status: Former smoker Time Seen by Provider: 12/05/18 16:06 Constitutional: Initial Vital Signs Temperature (C) 36.3 C 12/05/18 15:53 Heart Rate 80 12/05/18 15:53 Respiratory Rate 18 12/05/18 15:53 Blood Pressure 128/82 H 12/05/18 15:53 O2 Sat (%) 98 12/05/18 15:53 O2 Delivery Mode Room Air Allergies/Adverse Reactions: No Known Allergies Allergy (Verified 12/05/18 15:57) Home Medications: Medication Instructions Recorded Losartan Potassium [Cozaar 50 mg 100 mg PO DAILY 05/11/17 (*)] Ranitidine HCl [Zantac] 150 mg PO HS 09/28/17 Rosuvastatin Calcium [Crestor] 10 mg PO DAILY 09/28/17 Donepezil HCl [Aricept 5 MG (*)] 5 mg PO HS 07/09/18 Escitalopram Oxalate [Lexapro 10 10 mg PO DAILY 10/11/18 MG] Insulin Detemir [Levemir] 30 unit SQ BIDMEAL 10/11/18 Metoprolol Succinate Xr [Toprol Xl 100 mg PO DAILY 10/11/18 100 mg (*)] Nitroglycerin [Nitrostat 0.4 mg 0.4 mg SL Q5M PRN 10/11/18 (*)] Spironolactone [Aldactone 25 MG 12.5 mg PO DAILY 10/11/18 (*)] Acetaminophen [Tylenol 325mg (*)] 650 mg PO Q6HRS PRN tab 11/03/18 Clopidogrel Bisulfate [Plavix (*)] 75 mg PO DAILY #0 11/03/18 Hydrocodone/APAP 5/325 [[place] 1 - 2 tab PO Q6H PRN #10 tab 11/03/18 5/325 (*)] Cephalexin [Keflex (RX)] 500 mg PO TID 7 Days cap 12/05/18 - Diagnostics Imaging Results: Imaging Impressions Abdomen CT 12/05/18 16:36 Impression: 1. Multiple noncalcified pulmonary nodules, not changed since the 2017 study. 2. No acute process to explain left-sided abdominal pain. 3. Significant atherosclerotic disease of the arterial system, without dissection or aneurysm. 4. No change in left hepatic cyst. Findings and recommendations discussed with Raven Kang M.D., at 5:27 p.m. on December 05, 2018. Final report concurs with initial preliminary interpretation. E:amm - Data Points Laboratory Results: Laboratory Results 12/05/18 16:20 12/05/18 16:20 12/05/18 12/05/18 12/05/18 18:00 16:53 16:45 WBC RBC Hgb Hct MCV MCH MCHC RDW Plt Count MPV Neut % (Auto) Lymph % (Auto) [place] % (Auto) Eos % (Auto) Baso % (Auto) Nucleat RBC Rel Count Absolute Neuts (auto) Absolute Lymphs (auto) Absolute Monos (auto) Absolute Eos (auto) Absolute Basos (auto) Absolute Nucleated RBC Immature Gran % Immature Gran # VBG Lactic Acid 2.0 mmol/L mmol/L (0.7-2.1) Sodium Potassium Chloride Carbon Dioxide Anion Gap BUN Creatinine Estimated GFR Glucose Calcium Total Bilirubin Conjugated Bilirubin Unconjugated Bilirubin AST ALT Alkaline Phosphatase POC Troponin I 0.02 ng/mL ng/mL (0.00-0.08) Total Protein Albumin Lipase Urine Color YELLOW Urine Appearance HAZY Urine pH 7.0 (5.0-7.5) Ur Specific [place] 1.029 (1.002-1.030) Urine Protein NEGATIVE (NEGATIVE) Urine Ketones NEGATIVE (NEGATIVE) Urine Blood NEGATIVE (NEGATIVE) Urine Nitrate NEGATIVE (NEGATIVE) Urine Bilirubin NEGATIVE (NEGATIVE) Urine Urobilinogen NEGATIVE EU EU (0.2-1.0) Ur Leukocyte Esterase 3+ H (NEGATIVE) Urine RBC 3-5 /hpf H /hpf (0-3) Urine WBC 50-182 /hpf H /hpf (0-3) Ur Epithelial Cells TRACE /lpf /lpf (NONE-1+) Urine Bacteria 1+ /hpf H /hpf (NONE SEEN) Urine Mucus TRACE /lpf /lpf (NONE-1+) Urine Glucose 3+ H (NEGATIVE) 12/05/18 12/05/18 12/05/18 16:25 16:20 16:20 WBC 7.62 10^3/uL 10^3/uL (3.80-9.50) RBC 4.55 10^6/uL 10^6/uL (4.40-6.38) Hgb 14.0 g/dL g/dL (13.7-17.5) Hct 40.0 % % (40.0-51.0) MCV 87.9 fL fL (81.5-99.8) MCH 30.8 pg pg (27.9-34.1) MCHC 35.0 g/dL g/dL (32.4-36.7) RDW 12.4 % % (11.5-15.2) Plt Count 199 10^3/uL 10^3/uL (150-400) MPV 9.7 fL fL (8.7-11.7) Neut % (Auto) 70.3 % % (39.3-74.2) Lymph % (Auto) 15.5 % % (15.0-45.0) [place] % (Auto) 11.2 % % (4.5-13.0) Eos % (Auto) 2.0 % % (0.6-7.6) Baso % (Auto) 0.7 % % (0.3-1.7) Nucleat RBC Rel Count 0.0 % % (0.0-0.2) Absolute Neuts (auto) 5.37 10^3/uL 10^3/uL (1.70-6.50) Absolute Lymphs (auto) 1.18 10^3/uL 10^3/uL (1.00-3.00) Absolute Monos (auto) 0.85 10^3/uL H 10^3/uL (0.30-0.80) Absolute Eos (auto) 0.15 10^3/uL 10^3/uL (0.03-0.40) Absolute Basos (auto) 0.05 10^3/uL 10^3/uL (0.02-0.10) Absolute Nucleated RBC 0.00 10^3/uL 10^3/uL (0-0.01) Immature Gran % 0.3 % % (0.0-1.1) Immature Gran # 0.02 10^3/uL 10^3/uL (0.00-0.10) VBG Lactic Acid Sodium 133 mEq/L L mEq/L (135-145) Potassium 5.0 mEq/L mEq/L (3.5-5.2) Chloride 100 mEq/L mEq/L (97-110) Carbon Dioxide 22 mEq/l mEq/l (22-31) Anion Gap 11 mEq/L mEq/L (6-14) BUN 22 mg/dL mg/dL (7-23) Creatinine 1.1 mg/dL mg/dL (0.7-1.3) Estimated GFR > 60 Glucose 321 mg/dL H mg/dL (70-100) Calcium 9.0 mg/dL mg/dL (8.5-10.4) Total Bilirubin 0.6 mg/dL mg/dL (0.1-1.4) Conjugated Bilirubin 0.1 mg/dL mg/dL (0.0-0.5) Unconjugated Bilirubin 0.5 mg/dL mg/dL (0.0-1.1) AST 29 IU/L IU/L (17-59) ALT 34 IU/L IU/L (21-72) Alkaline Phosphatase 142 IU/L H IU/L (38-126) POC Troponin I Total Protein 6.2 g/dL L g/dL (6.3-8.2) Albumin 3.9 g/dL g/dL (3.5-5.0) Lipase 48 IU/L IU/L (23-300) Urine Color Urine Appearance Urine pH Ur Specific [place] Urine Protein Urine Ketones Urine Blood Urine Nitrate Urine Bilirubin Urine Urobilinogen Ur Leukocyte Esterase Urine RBC Urine WBC Ur Epithelial Cells Urine Bacteria Urine Mucus Urine Glucose Medications Given: Discontinued Medications Acetaminophen (Tylenol) 1,000 mg PO EDNOW ONE Stop: 12/05/18 17:59 Last Admin: 12/05/18 18:03 Dose: 1,000 mg Sodium Chloride (Ns) 1,000 mls @ 0 mls/hr IV EDNOW ONE; Wide Open PRN Reason: Protocol Stop: 12/05/18 16:36 Last Admin: 12/05/18 16:43 Dose: 1,000 mls Point of Care Test Results: Chemistry 12/05/18 16:53 POC Troponin I 0.02 ng/mL ng/mL (0.00-0.08) Departure - Departure Disposition: Home, Routine, Self-Care Clinical Impression: Abdominal pain, H/O recurrent urinary tract infection Referrals: NONE *PRIMARY CARE P,. [Primary Care Provider] - As per Instructions Prescriptions: Cephalexin [Keflex (RX)] 500 mg PO TID 7 Days cap
[2018-12-05] MEDS ORDERED: NS 1,000 ML IV ONE (16:35)
[2018-12-05 16:36] LABS: PLATELET COUNT 199 10^3/uL (150-400)
--- NOTE | 2018-12-05 16:47 | CPEKG ---
Test Reason : OPEN Blood Pressure : / mmHG Vent. Rate : 079 BPM Atrial Rate : 080 BPM P-R Int : 184 ms QRS Dur : 120 ms QT Int : 435 ms P-R-T Axes : 151 216 079 degrees QTc Int : 499 ms Atrial-ventricular dual-paced rhythm Confirmed by Ace Benson ([id number]) on 12/05/2018 4:47:20 PM Referred By: Ace Benson Confirmed By:Ace Benson
[2018-12-05] MEDS ORDERED: IOPAMIDOL (ISOVUE-300) 100 ML BTL ONE (17:04)
[2018-12-05] MEDS ORDERED: ACETAMINOPHEN 500 MG TAB PO ONE (17:58)
[2018-12-05] MEDS ORDERED: CEPHALEXIN 500MG PREPACK#4 BTL TAKEHOME ONE (18:28)
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
[2018-12-05 19:13] VITALS: BP 176/88
== END 2018-12-05 19:12 | disposition home or self-care (01) ==
DX: R10.12 Left upper quadrant pain (principal); I11.9 Hypertensive heart disease without heart failure; I50.9 Heart failure, unspecified; E78.5 Hyperlipidemia, unspecified; E11.9 Type 2 diabetes mellitus without complications; I25.10 Atherosclerotic heart disease of native coronary artery without angina pectoris; Z95.5 Presence of coronary angioplasty implant and graft; Z95.0 Presence of cardiac pacemaker; Z87.891 Personal history of nicotine dependence; Z87.440 Personal history of urinary (tract) infections
CPT/HCPCS: 74177; 93005; 96374; 99285; J0696; Q9967; 84484-ER